=== PATIENT | male | born 1955 | race Caucasian/White ===

== ENCOUNTER 2023-07-30 10:32 | Emergency (ER) | payer MEDICARE ==
[2023-07-30 11:00] VITALS: TEMP 98.5
[2023-07-30] MEDS: MECLIZINE 12.5 MG TAB PO STA (11:23)
[2023-07-30] MEDS: SCOPOLAMINE 1 MG/72 HR PATCH TRANSDERM STA (11:23)
[2023-07-30] MEDS: SODIUM CHLORIDE 0.9% 1,000 ML IV STA (11:24)
--- NOTE | 2023-07-30 11:31 | ED ---
Dizziness HPI - General Chief Complaint: Dizziness Stated Complaint: Vertigo, cough Time Seen by Provider: 07/30/23 10:59 Source: patient, RN notes reviewed Mode of arrival: ambulatory Limitations: no limitations - History of Present Illness Initial Comments: This is a 68-year-old male who presents to the emergency department for dizziness and a cough. Patient states that for the last 2 weeks he has been dealing with a cough and feeling rundown. States that he feels like he had some sort of cold. He saw his primary care provider and was given a prescription for azithromycin which he has since finished. States that he is not sure why he was given this prescription. This morning, he noticed that when he would stand up or turn around he started to feel dizzy with a room spinning sensation. Denies any visual changes, chest pain, or shortness of breath. Symptoms are improved when sitting still. MD Complaint: dizziness - Related Data Previous Rx's Medication Instructions Recorded Benzonatate [Tessalon Perle] 200 mg PO TID PRN #30 capsule 07/30/23 Meclizine HCl 25 mg PO QID PRN #20 tab 07/30/23 Allergies Allergy/AdvReac Type Severity Reaction Status Date / Time No Known Allergies Allergy Verified 07/30/23 10:46 Review of Systems ROS Statement: Those systems with pertinent positive or pertinent negative responses have been documented in the HPI. ROS Other: All systems not noted in ROS Statement are negative. Past Medical History Past Medical History: No Reported History History of Any Multi-Drug Resistant Organisms: None Reported Past Surgical History: No Surgical Hx Reported Past Psychological History: No Psychological Hx Reported Smoking Status: Current every day smoker Past Alcohol Use History: Occasional Past Drug Use History: None Reported General Exam Limitations: no limitations General appearance: alert, in no apparent distress Head exam: Present: atraumatic, normocephalic, normal inspection Eye exam: Present: normal appearance, PERRL, EOMI. Absent: scleral icterus, conjunctival injection, periorbital swelling ENT exam: Present: TM's normal bilaterally, normal external ear exam Respiratory exam: Present: normal lung sounds bilaterally. Absent: respiratory distress, wheezes, rales, rhonchi, stridor Cardiovascular Exam: Present: regular rate, normal rhythm, normal heart sounds. Absent: systolic murmur, diastolic murmur, rubs, gallop, clicks Neurological exam: Present: alert, oriented X3, CN II-XII intact Psychiatric exam: Present: normal affect, normal mood Skin exam: Present: warm, dry, intact, normal color. Absent: rash Course Vital Signs 07/30/23 07/30/23 07/30/23 10:44 13:00 14:03 Temperature 98.5 F Pulse Rate 56 L 82 82 Respiratory 20 16 14 Rate Blood Pressure 134/82 141/98 134/92 O2 Sat by Pulse 99 97 98 Oximetry Medical Decision Making - Medical Decision Making This is a 68 year old male who presents to the emergency department for dizziness. Was pt. sent in by a medical professional or institution? @ -No Did you speak to anyone other than the patient for history? @ -No Did you review nursing and triage notes? @ -Yes, and I agree, it is accurate with regards to the patient's symptoms. Were old charts reviewed? @ -No Differential Diagnosis? @ -Differential Dizziness: Benign paroxysmal positional Vertigo, Menieres disease, otitis media, acoustic neuroma, vertebrobasilar insufficiency, cerebellar stroke, encephalitis, hypovolemic, arrhythmia, coronary artery syndrome, anemia, this is not meant to be an all-inclusive list EKG interpreted by me (3pts min.)? @ -EKG interpreted by me demonstrating the following: Sinus rhythm. Ventricular rate 77 bpm, HI interval 157 ms, QRS duration 106 ms, QTc 396 ms. X-rays interpreted by me (1pt min.)? @ -Chest x-ray obtained, my interpretation identifies no localized consolidations or infiltrates. CT interpreted by me (1pt min.)? @ -Not obtained U/S interpreted by me (1pt. min.)? @ -Not obtained What testing was considered but not performed? (CT, X-rays, U/S, labs)? Why? @ -None What meds were considered but not given? Why? @ -None Did you discuss the management of the patient with other professionals? @ -No Did you reconcile home meds? @ -No Was smoking cessation discussed for >3mins.? @ -No Was critical care preformed (if so, how long)? @ -No Were there social determinants of health that impacted care today? How? (Homelessness, low income, unemployed, alcoholism, drug addiction, transportation, low edu. Level, literacy, decrease access to med. care, longterm, rehab)? @ -No Was there de-escalation of care discussed even if they declined? (Discuss DNR or withdrawal of care, Hospice)? @ -No What co-morbidities impacted this encounter? (DM, HTN, Smoking, COPD, CAD, Cancer, CVA, Hep., AIDS, mental health diagnosis, sleep apnea, morbid obesity)? @ -None Was patient admitted / discharged? @ -Discharged. Lab work unremarkable. Patient positive for influenza A. Chest x-ray reveals no acute process. Patient treated with IV fluids, meclizine, and a scopolamine patch. He did have improvement in symptoms afterwards. He was standing up and ambulating around and the dizziness had improved substantially. Symptoms could be related to combination of volume depl etion and vertigo. Prescription for meclizine provided with dosing instructions reviewed. He was also given a prescription for Tessalon Perles for any additional coughing. Advised he drink plenty of fluids and move around slowly to the reduce the risk of future dizzy episodes. Patient discharged home in stable condition and advised to follow-up with his primary care provider. Undiagnosed new problem with uncertain prognosis? @ -None Drug Therapy requiring intensive monitoring for toxicity (Heparin, Nitro, Insulin, Cardizem)? @ -None Were any procedures done? @ -None Diagnosis/symptom? @ -BPPV, influenza A Acute, or Chronic, or Acute on Chronic? @ -Acute Uncomplicated (without systemic symptoms) or Complicated (systemic symptoms)? @ -Uncomplicated Side effects of treatment? @ -None Exacerbation, Progression, or Severe Exacerbation] @ -Not applicable Poses a threat to life or bodily function? @ -No Return precautions reviewed in depth, the patient is instructed to return to the emergency department with any new, worsening, or concerning symptoms. Patient verbalized understanding. This case was discussed in detail with the attending ED physician, Dr. Flynn. Presentation, findings, and treatment plan discussed in detail as well. - Lab Data Result diagrams: 07/30/23 11:24 07/30/23 11:24 Lab Results 07/30/23 07/30/23 07/30/23 Range/Units 11:24 11:24 11:24 WBC 8.0 (3.8-10.6) k/uL RBC 5.02 (4.30-5.90) m/uL Hgb 16.9 (13.0-17.5) gm/dL Hct 49.8 (39.0-53.0) % MCV 99.2 (80.0-100.0) fL MCH 33.6 (25.0-35.0) pg MCHC 33.9 (31.0-37.0) g/dL RDW 11.8 (11.5-15.5) % Plt Count 328 (150-450) k/uL MPV 9.1 Neutrophils % 72 % Lymphocytes % 15 % Monocytes % 8 % Eosinophils % 3 % Basophils % 1 % Neutrophils # 5.8 (1.3-7.7) k/uL Lymphocytes # 1.2 (1.0-4.8) k/uL Monocytes # 0.7 (0-1.0) k/uL Eosinophils # 0.3 (0-0.7) k/uL Basophils # 0.1 (0-0.2) k/uL PT 10.8 (10.0-12.5) sec INR 1.0 (<1.2) Sodium 134 L (137-145) mmol/L Potassium 4.5 (3.5-5.1) mmol/L Chloride 102 (98-107) mmol/L Carbon Dioxide 22 (22-30) mmol/L Anion Gap 10 mmol/L BUN 17 (9-20) mg/dL Creatinine 0.97 (0.66-1.25) mg/dL Est GFR (CKD-EPI)AfAm >90 (>60 ml/min/1.73 sqM) Est GFR (CKD-EPI)NonAf 79 (>60 ml/min/1.73 sqM) Glucose 95 (74-99) mg/dL Plasma Lactic Acid Jimbo (0.7-2.0) mmol/L Calcium 9.0 (8.4-10.2) mg/dL Magnesium 1.9 (1.6-2.3) mg/dL Total Bilirubin 1.2 (0.2-1.3) mg/dL AST 31 (17-59) U/L ALT 32 (4-49) U/L Alkaline Phosphatase 110 (38-126) U/L Troponin I (0.000-0.034) ng/mL Total Protein 7.3 (6.3-8.2) g/dL Albumin 3.5 (3.5-5.0) g/dL Influenza Type A (PCR) (Not Detectd) Influenza Type B (PCR) (Not Detectd) RSV (PCR) (Not Detectd) SARS-CoV-2 (PCR) (Not Detectd) 07/30/23 07/30/23 07/30/23 Range/Units 11:24 11:24 11:24 WBC (3.8-10.6) k/uL RBC (4.30-5.90) m/uL Hgb (13.0-17.5) gm/dL Hct (39.0-53.0) % MCV (80.0-100.0) fL MCH (25.0-35.0) pg MCHC (31.0-37.0) g/dL RDW (11.5-15.5) % Plt Count (150-450) k/uL MPV Neutrophils % % Lymphocytes % % Monocytes % % Eosinophils % % Basophils % % Neutrophils # (1.3-7.7) k/uL Lymphocytes # (1.0-4.8) k/uL Monocytes # (0-1.0) k/uL Eosinophils # (0-0.7) k/uL Basophils # (0-0.2) k/uL PT (10.0-12.5) sec INR (<1.2) Sodium (137-145) mmol/L Potassium (3.5-5.1) mmol/L Chloride (98-107) mmol/L Carbon Dioxide (22-30) mmol/L Anion Gap mmol/L BUN (9-20) mg/dL Creatinine (0.66-1.25) mg/dL Est GFR (CKD-EPI)AfAm (>60 ml/min/1.73 sqM) Est GFR (CKD-EPI)NonAf (>60 ml/min/1.73 sqM) Glucose (74-99) mg/dL Plasma Lactic Acid Jimbo 1.0 (0.7-2.0) mmol/L Calcium (8.4-10.2) mg/dL Magnesium (1.6-2.3) mg/dL Total Bilirubin (0.2-1.3) mg/dL AST (17-59) U/L ALT (4-49) U/L Alkaline Phosphatase (38-126) U/L Troponin I <0.012 (0.000-0.034) ng/mL Total Protein (6.3-8.2) g/dL Albumin (3.5-5.0) g/dL Influenza Type A (PCR) Detected A (Not Detectd) Influenza Type B (PCR) Not Detected (Not Detectd) RSV (PCR) Not Detected (Not Detectd) SARS-CoV-2 (PCR) Not Detected (Not Detectd) - Radiology Data Radiology results: report reviewed, image reviewed Disposition Clinical Impression: BPPV (benign paroxysmal positional vertigo), Influenza A Disposition: HOME SELF-CARE Instructions (If sedation given, give patient instructions): Vertigo (ED), Influenza (ED), Benign Paroxysmal Positional Vertigo (ED), Dizziness (ED) Additional Instructions: Return to the emergency department with any new, worsening, or concerning symptoms. You can take the meclizine up to 4 times daily as needed for feelings of dizziness/vertigo. You can take the Tessalon Perles up to 3 times a day as needed for the cough. Make sure you drink plenty of fluids. Move around slowly to reduce the risk of dizziness. Follow up with your primary care provider in 1-2 days. Prescriptions: Meclizine HCl 25 mg PO QID PRN #20 tab PRN Reason: Vertigo Benzonatate [Tessalon Perle] 200 mg PO TID PRN #30 capsule PRN Reason: Cough Is patient prescribed a controlled substance at d/c from ED?: No Referrals: Katlyn Solis MD [Primary Care Provider] - 1-2 days
[2023-07-30 11:51] LABS: ALT 32 U/L (4-49); AST 31 U/L (17-59); African American GFR (CKD) >90 (>60 ml/min/1.73 sqM); Albumin 3.5 g/dL (3.5-5.0); Alkaline Phosphatase 110 U/L (38-126); Anion Gap 10 mmol/L; Blood Urea Nitrogen 17 mg/dL (9-20); Carbon Dioxide 22 mmol/L (22-30); Chloride 102 mmol/L (98-107); Glucose 95 mg/dL (74-99); Magnesium 1.9 mg/dL (1.6-2.3); Non-African American GFR(CKD) 79 (>60 ml/min/1.73 sqM); Potassium 4.5 mmol/L (3.5-5.1); Sodium 134 mmol/L (137-145); Total Bilirubin 1.2 mg/dL (0.2-1.3); Total Protein 7.3 g/dL (6.3-8.2)
[2023-07-30 11:57] LABS: Prothrombin Time 10.8 sec (10.0-12.5)
[2023-07-30 12:00] LABS: Basophils # (A) 0.1 k/uL (0-0.2); Basophils % (A) 1 %; Eosinophils # (A) 0.3 k/uL (0-0.7); Eosinophils % (A) 3 %; HCT 49.8 % (39.0-53.0); HGB 16.9 gm/dL (13.0-17.5); Lymphocytes # (A) 1.2 k/uL (1.0-4.8); Lymphocytes % (A) 15 %; MCH 33.6 pg (25.0-35.0); MCHC 33.9 g/dL (31.0-37.0); MCV 99.2 fL (80.0-100.0); Mean Platelet Volume 9.1; Monocytes # (A) 0.7 k/uL (0-1.0); Monocytes % (A) 8 %; Neutrophils # (A) 5.8 k/uL (1.3-7.7); Neutrophils % (A) 72 %; Platelet Count 328 k/uL (150-450); RBC 5.02 m/uL (4.30-5.90); RDW 11.8 % (11.5-15.5)
--- NOTE | 2023-07-30 12:36 | XR ---
EXAMINATION TYPE: XR chest 2V DATE OF EXAM: 07/30/2023 11:57 AM CLINICAL INDICATION:Male, 68 years old with history of Cough, dizziness; COMPARISON: None TECHNIQUE: XR chest 2V Frontal and lateral views of the chest. FINDINGS: Lungs/Pleura: There is no evidence of pleural effusion, focal consolidation, or pneumothorax. Pulmonary vascularity: Unremarkable. Heart/mediastinum: Cardiomediastinal silhouette is unremarkable. Musculoskeletal: No acute osseous pathology. IMPRESSION: 1. No acute cardiopulmonary disease process. 2. COPD changes.
[2023-07-30] MEDS: METOCLOPRAMIDE 5 MG/ML 2 ML VIAL IVP STA (13:17)
[2023-07-30 14:22] VITALS: BP 134/92; PULSE 82; RESP 14
== END 2023-07-30 14:04 | disposition home or self-care (01) ==
LOC: EC 10:32
DX: H81.10 Benign paroxysmal vertigo, unspecified ear (principal); J10.1 Influenza due to other identified influenza virus with other respiratory manifestations; F17.200 Nicotine dependence, unspecified, uncomplicated
CPT/HCPCS: 36415; 93005; 80053; 83605; 83735; 84484; 85025; 85610; 87636; 71046; 99284; 96374; 96361; J2765

== ENCOUNTER 2023-09-15 13:49 | Inpatient (IN) | payer MEDICARE ==
--- NOTE | 2023-09-15 14:09 | ED ---
General Adult HPI - General Chief complaint: Neuro Symptoms/Deficit Stated complaint: AMS Time Seen by Provider: 09/15/23 13:55 Source: patient, EMS, RN notes reviewed, old records reviewed Limitations: no limitations - History of Present Illness Initial comments: This is a 68-year-old male who was brought in for altered mental status. Neighbor states that he found him driving around and not acting at his baseline so he called the ambulance. Patient himself denies any pain. Patient is having a very difficult time following the most basic commands. Patient does seem able to move all 4 extremities however the left upper extremity appears to be slightly weak. Patient does not currently know where he is he listed and addressed it is not the address of the hospital. - Related Data Home Medications Medication Instructions Recorded Confirmed No Known Home Medications 09/15/23 09/15/23 Allergies Allergy/AdvReac Type Severity Reaction Status Date / Time No Known Allergies Allergy Verified 09/15/23 14:58 Review of Systems ROS Statement: Those systems with pertinent positive or pertinent negative responses have been documented in the HPI. ROS Other: All systems not noted in ROS Statement are negative. Past Medical History Past Medical History: No Reported History History of Any Multi-Drug Resistant Organisms: None Reported Past Surgical History: No Surgical Hx Reported Past Psychological History: No Psychological Hx Reported Smoking Status: Current every day smoker Past Alcohol Use History: Occasional Past Drug Use History: None Reported General Exam - General Exam Comments Initial Comments: GENERAL: Patient is well-developed and well-nourished. Patient is nontoxic and well- hydrated and is in no acute distress. ENT: Neck is soft and supple. No significant lymphadenopathy is noted. Oropharynx is clear. Moist mucous membranes. Neck has full range of motion without eliciting any pain. EYES: The sclera were anicteric and conjunctiva were pink and moist. Extraocular movements were intact and pupils were equal round and reactive to light. Eyel ids were unremarkable. PULMONARY: Unlabored respirations. Good breath sounds bilaterally. No audible rales rhonchi or wheezing was noted. CARDIOVASCULAR: There is a regular rate and rhythm without any murmurs gallops or rubs. ABDOMEN: Soft and nontender with normal bowel sounds. SKIN: Skin is clear with no lesions or rashes and otherwise unremarkable. NEUROLOGIC: Patient is alert and oriented x 1. Cranial nerves II through XII are grossly intact. Patient may have some left arm weakness difficult to assess secondary to the patient's inability to understand basic commands. Cannot do pronator drift I could not to cerebellar function testing because patient was not following commands MUSCULOSKELETAL: Normal extremities with adequate strength and full range of motion. No lower e xtremity swelling or edema. No calf tenderness. LYMPHATICS: No significant lymphadenopathy is noted PSYCHIATRIC: Unable to assess since patient is not actively answering questions Limitations: no limitations Course Vital Signs 09/15/23 09/15/23 09/15/23 13:50 15:36 16:00 Pulse Rate 90 105 H 103 H Respiratory 18 16 17 Rate Blood Pressure 205/125 181/106 181/106 O2 Sat by Pulse 94 L 100 98 Oximetry 09/15/23 09/15/23 09/15/23 16:40 17:00 20:33 Pulse Rate 120 H 121 H 96 Respiratory 18 20 17 Rate Blood Pressure 142/98 142/98 151/63 O2 Sat by Pulse 94 L 97 Oximetry Medical Decision Making - Medical Decision Making EKG is interpreted by myself but EKG shows a sinus rhythm at 74 bpm [place] interval 153 QRS is 107 QT interval is 382 QTc is 410. Patient's EKG shows no ST segment elevation or depression. EKG was repeated after the patient had a 30 to 40-second seizure. EKG was interpreted by myself. EKG shows sinus tachycardia at a rate of 103 bpm [place] interval 198 QRS is 109 QT interval is 57 QTc is 417. Patient's EKG shows no ST segment elevation or depression Was pt. sent in by a medical professional or institution (ASHLEY Patrick, PUBLIC HE[employer]IDES TEACHER, urgent care, hospital, or assisted...) When possible be specific @ -Patient was sent in by a neighbor because of his altered mental status he was found in the [place] in his [place] Did you speak to anyone other than the patient for history (EMS, parent, family, police, friend...)? What history was obtained from this source @ -Patient's girlfriend came and gives all of the past medical history since the patient was unable Did you review nursing and triage notes (agree or disagree)? Why? @ -I reviewed and agree with nursing and triage notes Were old charts reviewed (outside hosp., previous admission, EMS record, old EKG, old radiological studies, urgent care reports/EKG's, assisted records)? Report findings @ -No old charts were reviewed Differential Diagnosis (chest pain, altered mental status, abdominal pain women, abdominal pain men, vaginal bleeding, weakness, fever, dyspnea, syncope, headache, dizziness, GI bleed, back pain, seizure, CVA, palpatations, mental health, musculoskeletal)? @ -Differential Altered Mental Status: Hypoglycemia, DKA, hypercapnia, ETOH, overdose, CO poisoning, trauma, myxedema coma, HTN encephalopathy, infection, encephalitis, psychosis, intercranial hemorrhage, hepatic encephalopathy, meningitis, CVA, this is not meant to be an all-inclusive list EKG interpreted by me (3pts min.). @ -As above X-rays interpreted by me (1pt min.). @ -None done CT interpreted by me (1pt min.). @ -CT of the brain showed no acute abnormality. CT angiogram showed no acute normality. U/S interpreted by me (1pt. min.). @ -None done What testing was considered but not performed or refused? (CT, X-rays, U/S, labs)? Why? @ -None What meds were considered but not given or refused? Why? @ -None Did you discuss the management of the patient with other professionals (professionals i.e. DrLandy, PA, PUBLIC HEALTH AIDES TEACHER, lab, RT, psych nurse, clinical social work therapist, plum packer, teacher, credit officer, ed case manager)? Give summary @ -I spoke with Dr. Abhinav duggan and he wanted the patient to have 1 mg of Ativan as well as Keppra. He will see the patient in consult tomorrow Was smoking cessation discussed for >3mins.? @ -No Was critical care preformed (if so, how long)? @ -No Were there social determinants of health that impacted care today? How? (Homelessness, low income, unemployed, alcoholism, drug addiction, transportation, low edu. Level, literacy, decrease access to med. care, correction, rehab)? @ -No Was there de-escalation of care discussed even if they declined (Discuss DNR or withdrawal of care, Hospice)? DNR status @ -No What co-morbidities impacted this encounter? (DM, HTN, Smoking, COPD, CAD, Cancer, CVA, ARF, Chemo, Hep., AIDS, mental health diagnosis, sleep apnea, morbid obesity)? @ -None Was patient admitted / discharged? Hospital course, mention meds given and route, prescriptions, significant lab abnormalities, going to OR and other pertinent info. @ -Patient was altered on arrival but he was awake and alert and answering some questions and following some commands. Patient shortly thereafter had a seizure lasting about 30 to 40 seconds and he was given 1 of Ativan at that time. Patient continued to be agitated and needed to have a second Ativan given. Patient also was loaded with Keppra. Lab work was done and was within normal ra nge as were 2 CAT scans. Undiagnosed new problem with uncertain prognosis? @ -No Drug Therapy requiring intensive monitoring for toxicity (Heparin, Nitro, Insulin, Cardizem)? @ -No Were any procedures done? @ -No Diagnosis/symptom? @ -New onset seizure Acute, or Chronic, or Acute on Chronic? @ -Acute Uncomplicated (without systemic symptoms) or Complicated (systemic symptoms)? @ -Complicated Side effects of treatment? @ -No Exacerbation, Progression, or Severe Exacerbation? @ -No Poses a threat to life or bodily function? How? (Chest pain, [place], [place], pneumonia, PE, COPD, DKA, ARF, appy, cholecystitis, CVA, Diverticulitis, Homicidal, Suicidal, threat to staff... and all critical care pts) @ -Yes this can lead to prolonged seizures and - Lab Data Result diagrams: 09/15/23 13:59 09/15/23 16:11 Lab Results 09/15/23 09/15/23 09/15/23 Range/Units 13:59 13:59 13:59 WBC 7.1 (3.8-10.6) k/uL RBC 4.51 (4.30-5.90) m/uL Hgb 14.5 (13.0-17.5) gm/dL Hct 45.1 (39.0-53.0) % MCV 100.1 H (80.0-100.0) fL MCH 32.2 (25.0-35.0) pg MCHC 32.1 (31.0-37.0) g/dL RDW 13.2 (11.5-15.5) % Plt Count 171 (150-450) k/uL MPV 9.1 Neutrophils % 70 % Lymphocytes % 19 % Monocytes % 5 % Eosinophils % 4 % Basophils % 1 % Neutrophils # 5.0 (1.3-7.7) k/uL Lymphocytes # 1.4 (1.0-4.8) k/uL Monocytes # 0.4 (0-1.0) k/uL Eosinophils # 0.3 (0-0.7) k/uL Basophils # 0.0 (0-0.2) k/uL PT 10.5 (10.0-12.5) sec INR 0.9 (<1.2) APTT 24.5 (22.0-30.0) sec Sodium 136 L (137-145) mmol/L Potassium 3.7 (3.5-5.1) mmol/L Chloride 106 (98-107) mmol/L Carbon Dioxide 23 (22-30) mmol/L Anion Gap 7 mmol/L BUN 21 H (9-20) mg/dL Creatinine 1.13 (0.66-1.25) mg/dL Est GFR (CKD-EPI)AfAm 76 (>60 ml/min/1.73 sqM) Est GFR (CKD-EPI)NonAf 66 (>60 ml/min/1.73 sqM) Glucose 86 (74-99) mg/dL Calcium 9.0 (8.4-10.2) mg/dL Magnesium (1.6-2.3) mg/dL Total Bilirubin 0.8 (0.2-1.3) mg/dL AST 43 (17-59) U/L ALT 27 (4-49) U/L Alkaline Phosphatase 86 (38-126) U/L Ammonia (<30) umol/L Creatine Kinase 174 H (55-170) U/L Troponin I (0.000-0.034) ng/mL Total Protein 7.6 (6.3-8.2) g/dL Albumin 4.1 (3.5-5.0) g/dL Urine Opiates Screen (NotDetected) Ur Oxycodone Screen (NotDetected) Urine Methadone Screen (NotDetected) Ur Barbiturates Screen (NotDetected) U Tricyclic Antidepress (NotDetected) Ur Phencyclidine Scrn (NotDetected) Ur Amphetamines Screen (NotDetected) U Methamphetamines Scrn (NotDetected) U Benzodiazepines Scrn (NotDetected) Urine Cocaine Screen (NotDetected) U Marijuana (THC) Screen (NotDetected) Serum Alcohol mg/dL 09/15/23 09/15/23 09/15/23 Range/Units 13:59 16:11 16:11 WBC (3.8-10.6) k/uL RBC (4.30-5.90) m/uL Hgb (13.0-17.5) gm/dL Hct (39.0-53.0) % MCV (80.0-100.0) fL MCH (25.0-35.0) pg MCHC (31.0-37.0) g/dL RDW (11.5-15.5) % Plt Count (150-450) k/uL MPV Neutrophils % % Lymphocytes % % Monocytes % % Eosinophils % % Basophils % % Neutrophils # (1.3-7.7) k/uL Lymphocytes # (1.0-4.8) k/uL Monocytes # (0-1.0) k/uL Eosinophils # (0-0.7) k/uL Basophils # (0-0.2) k/uL PT (10.0-12.5) sec INR (<1.2) APTT (22.0-30.0) sec Sodium 137 (137-145) mmol/L Potassium 4.2 (3.5-5.1) mmol/L Chloride 106 (98-107) mmol/L Carbon Dioxide 21 L (22-30) mmol/L Anion Gap 10 mmol/L BUN 18 (9-20) mg/dL Creatinine 1.14 (0.66-1.25) mg/dL Est GFR (CKD-EPI)AfAm 75 (>60 ml/min/1.73 sqM) Est GFR (CKD-EPI)NonAf 65 (>60 ml/min/1.73 sqM) Glucose 118 H (74-99) mg/dL Calcium 8.8 (8.4-10.2) mg/dL Magnesium 1.8 (1.6-2.3) mg/dL Total Bilirubin 0.8 (0.2-1.3) mg/dL AST 48 (17-59) U/L ALT 26 (4-49) U/L Alkaline Phosphatase 84 (38-126) U/L Ammonia 28 (<30) umol/L Creatine Kinase (55-170) U/L Troponin I 0.015 (0.000-0.034) ng/mL Total Protein 7.8 (6.3-8.2) g/dL Albumin 4.2 (3.5-5.0) g/dL Urine Opiates Screen (NotDetected) Ur Oxycodone Screen (NotDetected) Urine Methadone Screen (NotDetected) Ur Barbiturates Screen (NotDetected) U Tricyclic Antidepress (NotDetected) Ur Phencyclidine Scrn (NotDetected) Ur Amphetamines Screen (NotDetected) U Methamphetamines Scrn (NotDetected) U Benzodiazepines Scrn (NotDetected) Urine Cocaine Screen (NotDetected) U Marijuana (THC) Screen (NotDetected) Serum Alcohol <10 mg/dL 09/15/23 09/15/23 Range/Units 16:11 16:11 WBC (3.8-10.6) k/uL RBC (4.30-5.90) m/uL Hgb (13.0-17.5) gm/dL Hct (39.0-53.0) % MCV (80.0-100.0) fL MCH (25.0-35.0) pg MCHC (31.0-37.0) g/dL RDW (11.5-15.5) % Plt Count (150-450) k/uL MPV Neutrophils % % Lymphocytes % % Monocytes % % Eosinophils % % Basophils % % Neutrophils # (1.3-7.7) k/uL Lymphocytes # (1.0-4.8) k/uL Monocytes # (0-1.0) k/uL Eosinophils # (0-0.7) k/uL Basophils # (0-0.2) k/uL PT (10.0-12.5) sec INR (<1.2) APTT (22.0-30.0) sec Sodium (137-145) mmol/L Potassium (3.5-5.1) mmol/L Chloride (98-107) mmol/L Carbon Dioxide (22-30) mmol/L Anion Gap mmol/L BUN (9-20) mg/dL Creatinine (0.66-1.25) mg/dL Est GFR (CKD-EPI)AfAm (>60 ml/min/1.73 sqM) Est GFR (CKD-EPI)NonAf (>60 ml/min/1.73 sqM) Glucose (74-99) mg/dL Calcium (8.4-10.2) mg/dL Magnesium (1.6-2.3) mg/dL Total Bilirubin (0.2-1.3) mg/dL AST (17-59) U/L ALT (4-49) U/L Alkaline Phosphatase (38-126) U/L Ammonia (<30) umol/L Creatine Kinase (55-170) U/L Troponin I 0.027 (0.000-0.034) ng/mL Total Protein (6.3-8.2) g/dL Albumin (3.5-5.0) g/dL Urine Opiates Screen Not Detected (NotDetected) Ur Oxycodone Screen Not Detected (NotDetected) Urine Methadone Screen Not Detected (NotDetected) Ur Barbiturates Screen Not Detected (NotDetected) U Tricyclic Antidepress Not Detected (NotDetected) Ur Phencyclidine Scrn Not Detected (NotDetected) Ur Amphetamines Screen Not Detected (NotDetected) U Methamphetamines Scrn Not Detected (NotDetected) U Benzodiazepines Scrn Not Detected (NotDetected) Urine Cocaine Screen Not Detected (NotDetected) U Marijuana (THC) Screen Not Detected (NotDetected) Serum Alcohol mg/dL Disposition Clinical Impression: New onset seizure Disposition: ADMITTED IP TO THIS [facility] Time of Disposition: 17:32
[2023-09-15 14:16] LABS: Basophils % (A) 1 %; Eosinophils # (A) 0.3 k/uL (0-0.7); Eosinophils % (A) 4 %; HCT 45.1 % (39.0-53.0); HGB 14.5 gm/dL (13.0-17.5); Lymphocytes # (A) 1.4 k/uL (1.0-4.8); Lymphocytes % (A) 19 %; MCH 32.2 pg (25.0-35.0); MCHC 32.1 g/dL (31.0-37.0); MCV 100.1 fL (80.0-100.0); Mean Platelet Volume 9.1; Monocytes # (A) 0.4 k/uL (0-1.0); Monocytes % (A) 5 %; Neutrophils % (A) 70 %; Platelet Count 171 k/uL (150-450); RBC 4.51 m/uL (4.30-5.90); RDW 13.2 % (11.5-15.5); WBC 7.1 k/uL (3.8-10.6)
--- NOTE | 2023-09-15 14:17 | CT ---
EXAMINATION TYPE: CT brain wo con CT DLP: 1246.6 mGycm, Automated exposure control for dose reduction was used. DATE OF EXAM: 09/15/2023 2:12 PM COMPARISON: None. CLINICAL INDICATION:Male, 68 years old with history of Neuro deficit, acute, stroke suspected, TECHNIQUE: Brain: Axial CT images of the brain were obtained with coronal and sagittal reformats created and rev iewed. Contrast used: None. Oral contrast used: None. FINDINGS: Brain: Extra-axial spaces: No abnormal extra-axial fluid collections. Ventricular system: Dilatation in proportion to cerebral atrophy. Cerebral parenchyma: Cerebral atrophy. No acute intraparenchymal hemorrhage or mass effect. The polk -white junction is well differentiated. Scattered hypoattenuating areas are seen within the white mat ter. Cerebellum: Unremarkable. Mass effect: No evidence of midline shift. Intracranial vasculature: Atherosclerotic calcifications of the intracranial vessels. Soft tissues: Normal. Calvarium/osseous structures: No depressed skull fracture. Paranasal sinuses and mastoid air cells: Mild scattered paranasal sinus disease. Visualized orbits: Bilateral aphakia IMPRESSION: 1. No acute intracranial process. 2. Nonspecific white matter changes, likely secondary to chronic small vessel ischemic disease.
[2023-09-15 14:30] LABS: INR 0.9 (<1.2); Partial Thromboplastin Time 24.5 sec (22.0-30.0); Prothrombin Time 10.5 sec (10.0-12.5)
[2023-09-15 14:34] LABS: ALT 27 U/L (4-49); AST 43 U/L (17-59); African American GFR (CKD) 76 (>60 ml/min/1.73 sqM); Albumin 4.1 g/dL (3.5-5.0); Alkaline Phosphatase 86 U/L (38-126); Anion Gap 7 mmol/L; Blood Urea Nitrogen 21 mg/dL (9-20); Carbon Dioxide 23 mmol/L (22-30); Chloride 106 mmol/L (98-107); Creatine Kinase 174 U/L (55-170); Glucose 86 mg/dL (74-99); Non-African American GFR(CKD) 66 (>60 ml/min/1.73 sqM); Potassium 3.7 mmol/L (3.5-5.1); Sodium 136 mmol/L (137-145); Total Bilirubin 0.8 mg/dL (0.2-1.3); Total Protein 7.6 g/dL (6.3-8.2)
[2023-09-15] MEDS: LORazepam 2 MG/ML INJ IV STA ×3 (15:09→18:26)
[2023-09-15] MEDS: SODIUM CHLORIDE 0.9% 1,000 ML IV STA (15:10)
--- NOTE | 2023-09-15 15:17 | CT ---
EXAMINATION TYPE: CT angio head neck CT DLP: 479.2 mGycm, Automated exposure control for dose reduction was used. DATE OF EXAM: 09/15/2023 2:33 PM COMPARISON: Same day CT head. CLINICAL INDICATION:Male, 68 years old with history of Neuro deficit, acute, stroke suspected; PHH, a ltered mental status TECHNIQUE: Axially acquired helical CT angiogram of the head and neck was obtained with contrast. Axi al images are supplemented with 3D reconstructions and MIP images which were post-processed at an in dependent workstation. NASCET criteria used. Contrast used:65 mL of Isovue 370 with IV Contrast, Oral contrast used: None. FINDINGS: CTA HEAD: No evidence of acute intracranial hemorrhage, mass effect, or midline shift. The ventricles, sulci, a nd cisterns are unremarkable. The visualized portions of the internal carotid arteries, middle cerebral arteries, anterior cerebral arteries, and posterior cerebral arteries are patent. The basilar and vertebral arteries are patent. CTA NECK: Right Carotid System: The common carotid artery and external carotid artery are patent. The carotid bifurcation demonstrate s no evidence of hemodynamically significant stenosis. The remaining portions of the internal carotid artery demonstrate normal size without significant narrowing. Left Carotid System: The common carotid artery and external carotid artery are patent. The carotid bifurcation demonstrate s no evidence of hemodynamically significant stenosis. The remaining portions of the internal carotid artery demonstrate normal size without significant narrowing. Vertebral arteries are patent without evidence hemodynamically significant stenosis. There is a three-vessel aortic arch. The origins of the great vessels are patent. No evidence of hemo dynamically significant stenosis. Upper thorax: Centrilobular emphysema changes in the lung apices. IMPRESSION: 1. No evidence of dissection of the cervical internal carotid arteries or vertebral arteries or any e vidence of significant stenosis at the carotid bifurcations. 2. No evidence of intracranial high-grade stenosis or intracranial aneurysm.
[2023-09-15 16:31] LABS: ALT 26 U/L (4-49); African American GFR (CKD) 75 (>60 ml/min/1.73 sqM); Albumin 4.2 g/dL (3.5-5.0); Alcohol <10 mg/dL; Anion Gap 10 mmol/L; Blood Urea Nitrogen 18 mg/dL (9-20); Calcium 8.8 mg/dL (8.4-10.2); Carbon Dioxide 21 mmol/L (22-30); Chloride 106 mmol/L (98-107); Glucose 118 mg/dL (74-99); Non-African American GFR(CKD) 65 (>60 ml/min/1.73 sqM); Sodium 137 mmol/L (137-145); Total Bilirubin 0.8 mg/dL (0.2-1.3); Total Protein 7.8 g/dL (6.3-8.2)
[2023-09-15] MEDS: levETIRAcetam IV 500 MG/5 ML VIAL IVP STA (16:32)
[2023-09-15 16:50] LABS: AST 48 U/L (17-59); Alkaline Phosphatase 84 U/L (38-126); Magnesium 1.8 mg/dL (1.6-2.3); Potassium 4.2 mmol/L (3.5-5.1)
[2023-09-15 16:53] LABS: Amphetamine Screen,Urine Not Detected (NotDetected); Barbiturate Screen,Urine Not Detected (NotDetected); Benzodiazepines Screen,Urine Not Detected (NotDetected); Cocaine Screen,Urine Not Detected (NotDetected); Methadone Screen, Urine Not Detected (NotDetected); Opiate Screen,Urine Not Detected (NotDetected); Oxycodone Screen, Urine Not Detected (NotDetected); Phencyclidine Screen,Urine Not Detected (NotDetected); Tricyclic Antidepressant,Urine Not Detected (NotDetected); Urn Cannabinoid Scrn Not Detected (NotDetected)
[2023-09-15] MEDS ORDERED: LORazepam 1 MG/0.5 ML VIAL IV STA (18:20)
[2023-09-15] MEDS: ZIPRASIDONE 20 MG VIAL IM STA (18:42)
[2023-09-15] MEDS: ASPIRIN 325 MG TAB PO STA (18:46)
--- NOTE | 2023-09-15 20:25 | XR ---
EXAMINATION TYPE: XR chest 1V DATE OF EXAM: 09/15/2023 8:01 PM CLINICAL INDICATION:Male, 68 years old with history of altered mental status; COMPARISON: Chest radiographs from 07/30/2023 TECHNIQUE: XR chest 1V Frontal view of the chest. FINDINGS: Lungs/Pleura: Prominent interstitial lung markings are seen scattered throughout the lungs with ariadna ening of the diaphragm and increased lucency of the lung apices. No evidence of focal consolidation, pneumothorax or pleural effusion. Pulmonary vascularity: Unremarkable. Heart/mediastinum: Cardiomediastinal silhouette is unremarkable. Musculoskeletal: No acute osseous pathology. IMPRESSION: 1. No acute cardiopulmonary disease process. 2. COPD changes.
[2023-09-15 22:49] LABS: Glucose,Whole Blood 117 mg/dL (70-110)
[2023-09-15] MEDS: THIAMINE 100 MG/ML 2 ML VIAL IM STA (23:09)
[2023-09-15] MEDS: levETIRAcetam 500 MG TAB PO SCH (23:10)
[2023-09-16] MEDS: LORazepam 2 MG/ML INJ IV STA ×2 (00:09→11:00)
[2023-09-16 02:37] LABS: Partial Thromboplastin Time 23.6 sec (22.0-30.0); Prothrombin Time 10.6 sec (10.0-12.5)
[2023-09-16] MEDS: ASPIRIN 325 MG TAB PO SCH (08:25)
[2023-09-16] MEDS: THIAMINE 100 MG TAB PO SCH (08:26)
[2023-09-16 08:56] LABS: Chol/HDL Ratio 3.89 Ratio; LDL Cholesterol,Calculated 141.3 mg/dL (0.0-131.0); VLDL Calculation 13.96 mg/dL (5.00-40.00)
--- NOTE | 2023-09-16 11:13 | P.HPIM ---
History of Present Illness H&P Date: 09/15/23 This is a 68-year-old male patient of Dr. Solis who presented to the ERWith concerns of altered mental status changes. According to at bedside Patient was found driving around confused EMS was called and upon exam patient was having difficulty following basic commands but was able to move all 4 extremities.According to upon arrival to ER patient did have witnessed seizure. Patient does not have a history of seizure and no other significant medical history except nicotine dependence. Patient does drink a couple beers a night according to patient has not drink a lot over the past month. Patient was treated for vertigo approximately 1 month ago But no other significant history noted. No recent change to diet or medication. Head CT was completed showing no acute intracranial process. Nonspecific white matter changes likely secondary to chronic small vessel ischemic disease.CT angiogram completed showing no evidence of dissection of the cervical internal carotid arteries or vertebral arteries are any evidence of significant stenosis of the carotid bifurcations. No evidence of intracranial high-grade stenosis or intracranial aneurysm.Chest x-ray completed showing no acute cardiopulmonary disease no changes.At this time patient remains confused does not follow com mands. Patient was started on Keppra per ER. At this time neurology service is consulted. MRI of the brain and EEG has been ordered. 2-D echocardiogram ordered. Repeat labs ordered. PT OT and speech service is consulted. Current vital signs temp 98.3, heart rate 83, respiratory rate 18, blood pressure 148/92 with pulse ox 97%. Review of Systems Please refer to HPI otherwise unremarkable. Past Medical History Past Medical History: No Reported History History of Any Multi-Drug Resistant Organisms: None Reported Past Surgical History: No Surgical Hx Reported Past Psychological History: No Psychological Hx Reported Smoking Status: Current every day smoker Past Alcohol Use History: Occasional Past Drug Use History: None Reported Medications and Allergies Home Medications Medication Instructions Recorded Confirmed Type No Known Home Medications 09/15/23 09/15/23 History Allergies Allergy/AdvReac Type Severity Reaction Status Date / Time No Known Allergies Allergy Verified 09/15/23 14:58 Physical Exam Vitals: Vital Signs Pulse Resp BP Pulse Ox 09/15/23 16:40 120 H 18 142/98 94 L 09/15/23 13:50 90 18 205/125 94 L Intake and Output 09/15/23 09/15/23 09/15/23 06:59 14:59 22:59 Other: Weight 86.183 kg Head normocephalic Neck supple Lungs clear to auscultation bilaterally no wheezing or crackles Heart regular rate and rhythm S1-S2, no rub or gallop Abdomen is soft nontender nondistended positive bowel sounds no hepatosplenomegaly Extremities no edema Neuro alert and orientated to 0.. Patient is confused and not following commands Results CBC & Chem 7: 09/15/23 13:59 09/15/23 16:11 Labs: Abnormal Lab Results - Last 24 Hours (Table) 09/15/23 09/15/23 09/15/23 Range/Units 13:59 13:59 16:11 MCV 100.1 H (80.0-100.0) fL Sodium 136 L (137-145) mmol/L Carbon Dioxide 21 L (22-30) mmol/L BUN 21 H (9-20) mg/dL Glucose 118 H (74-99) mg/dL Creatine Kinase 174 H (55-170) U/L Assessment and Plan Assessment: 1. Altered mental status changes possibly secondary to stroke and/or seizure 2. Witnessed seizure in ER patient was started on Keppra 3. Episode of vertigo approximately 1 month ago 4. Nicotine dependence At this time patient will be admitted Neurology services consulted MRI EEG and 2-D echo has been ordered Continue seizure precautions Repeat labs ordered PT OT and speech service is consulted Time with Patient: Greater than 30 (Greater than 60% of the total time spent in counseling and coordination of care)
[2023-09-16 12:39] LABS: Basophils # (A) 0.1 k/uL (0-0.2); Basophils % (A) 0 %; Eosinophils # (A) 0.1 k/uL (0-0.7); Eosinophils % (A) 1 %; HCT 43.5 % (39.0-53.0); HGB 13.9 gm/dL (13.0-17.5); Lymphocytes # (A) 1.5 k/uL (1.0-4.8); Lymphocytes % (A) 12 %; MCH 32.4 pg (25.0-35.0); MCHC 32.1 g/dL (31.0-37.0); MCV 101.1 fL (80.0-100.0); Macrocytosis Slight; Mean Platelet Volume 11.6; Monocytes # (A) 0.7 k/uL (0-1.0); Monocytes % (A) 6 %; Neutrophils # (A) 10.1 k/uL (1.3-7.7); Neutrophils % (A) 80 %; Platelet Count 170 k/uL (150-450); RDW 13.6 % (11.5-15.5); WBC 12.7 k/uL (3.8-10.6)
--- NOTE | 2023-09-16 15:24 | P.CNNES ---
History of Present Illness Consult date: 09/16/23 Requesting physician: Arnol Bass Reason for Consult: stroke/tia History of Present Illness: This is a 68-year-old gentleman who presents to the emergency department because of altered mental status. Patient's girlfriend is at bedside who provides the history. The girlfriend seems to the patient yesterday was confused and he went into neighbors garden he thinks this happened late morning early afternoon yesterday. He was babbling yesterday and it seems that he is neglecting the left arm and not moving it appropriately. She stated that he smokes heavily daily and it seems that he does not follow-up with primary care. She denies that the patient has any history of stroke or seizures to her knowledge but a gain he does not follow-up. Presented the emergency department via ambulance. And per the ED it seems that his left upper extremity was slightly weak. While in the ED it seems that the patient had seizures yesterday and the ED physician notified me about this yesterday it seems he was awake alert answering some questions and following some commands shortly thereafter he had a seizure lasting 30 to 40 seconds and was given 1 mg Ativan and he continued to be agitated so he needed a second Ativan per the ED team. I spoke with the ED physician and notified him to give him a loading dose of Keppra 1500 mg once then start him on Keppra 500 mg 500 twice a day. He continues to be confused. Per the girlfriend no recent fevers that she knows of. Some of the workup during this hospital visit consisted of: Presentation patient blood pressure is 205/125 which is improving. White blood cell on presentation 7.1. MCV is 100.1 Sodium most recent is 137, glucose is 118, calcium is 8.8, magnesium is 1.8, AST ALT is within normal limits Ammonia level is 28 Lipid panel is triglyceride of 69, cholesterol 209, LDL is 141 and HDL 53. Urine tox screen is nondetected in the serum alcohol is less than 10 CT head is reported as no acute intracranial process. Nonspecific white matter changes. Personally reviewed the CT of the head and agree with the report. CTA head and neck is reported as no evidence of dissection or cervical internal carotid artery or vertebral artery or any evidence of significant stenosis at the carotid bifurcation. No evidence of intracranial high-grade stenosis or intracranial aneurysm. Review of Systems Limited but the positive and negative as per HPI. Past Medical History Past Medical History: No Reported History History of Any Multi-Drug Resistant Organisms: None Reported Past Surgical History: No Surgical Hx Reported Past Psychological History: No Psychological Hx Reported Smoking Status: Current every day smoker Past Alcohol Use History: Occasional Past Drug Use History: None Reported Medications and Allergies Home Medications Medication Instructions Recorded Confirmed Type No Known Home Medications 09/15/23 09/15/23 History Allergies Allergy/AdvReac Type Severity Reaction Status Date / Time No Known Allergies Allergy Verified 09/15/23 14:58 Physical Examination - Vital Signs Vital Signs: Vital Signs Pulse Resp BP Pulse Ox 09/16/23 04:00 83 18 148/92 97 09/15/23 23:12 98 18 149/92 99 09/15/23 22:38 96 19 173/99 97 09/15/23 20:33 96 17 151/63 97 09/15/23 17:00 121 H 20 142/98 09/15/23 16:40 120 H 18 142/98 94 L 09/15/23 16:00 103 H 17 181/106 98 09/15/23 15:36 105 H 16 181/106 100 Intake and Output 09/16/23 09/16/23 09/16/23 06:59 14:59 22:59 Output Total 500 Balance -500 Output: Urine 500 Straight 500 General: Lying in bed and does not appear in acute distress. Neuro: Very limited because of his cooperation. Patient is very uncooperative during examination and is restless upon trying to examine him and he resists. Patient is not verbally responsive to commands. Sometimes he will look to the right or left but not tracking a particular person. Mute No facial weakness He would flail the left arm. His left upper all extremity above gravity is to assess individual muscle strength Hard to assess reflexes or sensation. Results - Laboratory Findings CBC and BMP: 09/16/23 02:04 09/15/23 16:11 Abnormal Lab Findings: Abnormal Labs 09/15/23 09/15/23 09/15/23 13:59 13:59 16:11 WBC MCV 100.1 H Neutrophils # Sodium 136 L Carbon Dioxide 21 L BUN 21 H Glucose 118 H POC Glucose (mg/dL) Creatine Kinase 174 H Cholesterol LDL Cholesterol, Calc 09/15/23 09/16/23 09/16/23 22:37 02:04 02:04 WBC 12.7 H MCV 101.1 H Neutrophils # 10.1 H Sodium Carbon Dioxide BUN Glucose POC Glucose (mg/dL) 117 H Creatine Kinase Cholesterol 209.00 H LDL Cholesterol, Calc 141.3 H Assessment and Plan Assessment: This is a 68-year-old gentleman who presents because of altered mental status. Girlfriend seems the patient was confused and drove into the [employer] garden and was babbling. AED appears he has left upper extremity weakness neglect in the left arm. While in the ED he had seizure-like activity. He was given Ativan as well as Keppra loading dose. He continues to be confused agitated and restless. New onset seizure with left upper extremity weakness and ?neglect left arm that was appreciated by the ED team. Rule out stroke vs mass not seen on CT. Initial CT head is unremarkable Encephalopathy due to above Hypertensive urgency Tobacco use Does not appear the patient follows up with the PCP or address his medical issues per girlfriend Plan: I ordered MRI of the brain with and without. It can be hard to obtain MRI at this moment because of patient cooperation. I ordered a routine EEG and we had to give him 2 mg of Ativan to obtain the test. 2D echo was ordered and is pending Continue Keppra 500 mg every 12 hours. He received 1500 mg once in the ED. He is on aspirin 325 daily and I started him on Lipitor 40 mg nightly for secon vj stroke prophylaxis Continue neurochecks Cardiac monitoring PT OT and FILLER SPREADER are consulted I started the patient on Seroquel 25 mg nightly for his agitation. Can consider Haldol 1 mg as needed every 4 hours. Will defer the rest of the medical management to primary and other specialists For DVT prophylaxis the patient is on Lovenox I discussed with the patient's girlfriend is at bedside and the patient's son as well as the primary team [employer] VICE PRESIDENT. Thank for the consultation Time with Patient: Greater than 30
[2023-09-16] MEDS: LORazepam 2 MG/ML INJ IV PRN (16:00)
[2023-09-16] MEDS: ZIPRASIDONE 20 MG VIAL IM STA (16:03)
[2023-09-16] MEDS: hydrALAZINE HCL 20 MG/ML 1 ML VIAL IVP PRN (17:39)
[2023-09-16] MEDS: ATORVASTATIN 40 MG TAB PO SCH (21:44)
[2023-09-16] MEDS: QUEtiapine 25 MG TAB PO SCH (21:44)
[2023-09-16] MEDS: levETIRAcetam IV 500 MG/5 ML VIAL IVP SCH (21:52)
--- NOTE | 2023-09-16 22:37 | EEG ---
ELECTROENCEPHALOGRAM REPORT CLINICAL HISTORY: This is a 68-year-old gentleman, who presented to the ED with altered mental status. While in the ED, he had seizure-like activity. The video EEG is obtained to evaluate for seizure epileptiform activity. RELEVANT MEDICATIONS: 1. Keppra. 2. Ativan. EEG TYPE: This is a routine 21-channel EEG with video using the 10/20 electrode placement system. DESCRIPTION: Wakefulness is obtained. During awake state, the posterior-dominant rhythm consists of [id number] voltage of 9 to 10 hertz activity that is well modulated and well sustained. There is no physiological stage 2 sleep architecture. There is no focal slowing. During the study, the patient was restless. Interictal ictal is none. ACTIVATION PROCEDURE: Photic stimulation and hyperventilation are not performed. CLINICAL INTERPRETATION: This is a normal routine EEG. There is no focal slowing, epileptiform discharge, or seizure on the EEG. A normal routine EEG does not rule out underlying epilepsy. Clinical correlation is recommended. MMODL / IJN: [id number] /
[2023-09-17 03:39] LABS: Appearance,Urine Clear (Clear); Bacteria,Urine Rare /hpf; Bilirubin,Urine Negative (Negative); Blood,Urine Negative (Negative); Color,Urine Yellow; Glucose,Urine (UA) Negative (Negative); Ketones,Urine 2+ (Negative); Leukocyte Esterase,Urine Small (Negative); Mucus,Urine Rare /hpf; Nitrite,Urine Negative (Negative); Protein,Urine 1+ (Negative); RBC,Urine 1 /hpf (0-5); Specific Gravity,Urine 1.023 (1.001-1.035); Urobilinogen,Urine <2.0 mg/dL (<2.0); WBC,Urine 13 /hpf (0-5)
--- NOTE | 2023-09-17 03:54 | P.CNPUL ---
History of Present Illness Consult date: 09/17/23 Requesting physician: Tony Kathleen Reason for consult: other (Evaluation for ICU) Chief complaint: Altered mental status and left arm weakness History of present illness: Patient is a 68-year-old white male with unknown past medical history. Patient is currently aphasic and unable to provide any information. Apparently, patient was noted to be acting abnormal by his neighbor earlier yesterday afternoon. He reportedly had left arm weakness/neglect. Unknown last well time. Patient was brought into the emergency room by EMS 09/15/2023. While in the emergency room, he did reportedly have seizure-like activity, which was terminated with 1 mg of Ativan. He was also loaded with 1500 mg of Keppra and started on Keppra 500 mg [address] a day[address] of the brain did not show any acute intracranial process. No intracranial hemorrhage or mass effect. Brain CTA of head and neck did not show evidence of dissection of the cervical internal carotid arteries or vertebral arteries or any evidence of significant stenosis at the carotid bifurcations. No evidence of intracranial high-grade stenosis or intracranial aneurysm. No reported fevers. Urine toxicology screen negative. Serum alcohol less than 10. On my evaluation, the patient is alert. He is completely aphasic. No facial asymmetry. He will track me with his eyes around the bed. He does not follow commands. He is moving all 4 extremities. No observable hemiparesis/plegia. No noted seizure-like activity. Earlier he was reportedly restless and agitated. Given one time dose of Geodon and started on Seroquel. Blood pressure is hypertensive, recorded as high as 205/125. As needed hydralazine was added, and blood pressures improved to 165/82. EKG done on arrival consistent with sinus tachycardia. No obvious acute ischemic changes. Most recent CBC from yesterday: WBC count 12.7, hemoglobin 13.9, hematocrit 43.5, platelets 170. BMP from admission: Sodium 137, potassium 4.2, chloride 106, serum bicarb 21, BUN 18, creatinine 1.14, glucose 118. LFTs not elevated. Troponins 0.015 and 0.027 respectively. We were consulted for ICU evaluation. Patient does not necessarily need ICU management at this time. No further seizure activity. hemodynamically is stable. Follow-up brain MRI pending. Patient started on a spirin and statin. Prognosis is certainly guarded. Review of Systems ROS unobtainable: due to mental status Past Medical History Past Medical History: No Reported History History of Any Multi-Drug Resistant Organisms: None Reported Past Surgical History: No Surgical Hx Reported Past Psychological History: No Psychological Hx Reported Smoking Status: Current every day smoker Past Alcohol Use History: Occasional Past Drug Use History: None Reported Medications and Allergies Home Medications Medication Instructions Recorded Confirmed Type No Known Home Medications 09/15/23 09/15/23 History Allergies Allergy/AdvReac Type Severity Reaction Status Date / Time No Known Allergies Allergy Verified 09/15/23 14:58 Physical Exam Vitals: Vital Signs Pulse Resp BP Pulse Ox 09/16/23 22:00 94 18 174/104 94 L 09/16/23 20:26 97 18 165/82 97 09/16/23 16:55 97 18 170/115 97 09/16/23 04:00 83 18 148/92 97 GENERAL EXAM: Alert, 68-year-old white male, has pulled his gown off and is disheveled, is restless. Has arm behavioral restraints on. HEAD: Normocephalic and atraumatic EYES: Normal reaction of pupils, equal size. NOSE: Clear with pink turbinates. THROAT: No erythema or exudates. NECK: No masses, no JVD. No nuchal rigidity. CHEST: No chest wall deformity. LUNGS: Equal air entry with no crackles, wheeze, rhonchi or dullness. On 2 L/min nasal cannula. No accessory muscle use. CVS: S1 and S2 normal with no audible murmur, regular rhythm. No extra heart sounds ABDOMEN: No hepatosplenomegaly, active bowel sounds, no guarding or rigidity. SPINE: No scoliosis or deformity SKIN: No rashes CENTRAL NERVOUS SYSTEM: Patient is currently restrained in bed. He is alert and tracks me around the room, currently aphasic, does not follow any commands, no obvious facial asymmetry, no obvious hemiparesis/hemiplegia, no seizure activity noted. EXTREMITIES: There is no peripheral edema or cyanosis. Significant digital clubbing. Peripheral pulses are intact. Results - Laboratory Findings CBC and BMP: 09/17/23 14:10 09/17/23 14:10 PT/INR, D-dimer PT 10.6 sec (10.0-12.5) 09/16/23 02:04 INR 1.0 (<1.2) 09/16/23 02:04 Abnormal lab findings: Abnormal Labs 09/15/23 09/15/23 09/15/23 13:59 13:59 16:11 WBC MCV 100.1 H Neutrophils # Sodium 136 L Carbon Dioxide 21 L BUN 21 H Glucose 118 H POC Glucose (mg/dL) Creatine Kinase 174 H Cholesterol LDL Cholesterol, Calc 09/15/23 09/16/23 09/16/23 22:37 02:04 02:04 WBC 12.7 H MCV 101.1 H Neutrophils # 10.1 H Sodium Carbon Dioxide BUN Glucose POC Glucose (mg/dL) 117 H Creatine Kinase Cholesterol 209.00 H LDL Cholesterol, Calc 141.3 H - Diagnostic Findings Chest x-ray: image reviewed Assessment and Plan Assessment: Altered mental status, currently under investigation, CT of the brain did not show any acute intracranial process. No intracranial hemorrhage or mass effect. Brain CTA of head and neck did not show evidence of dissection of the cervical internal carotid arteries or vertebral arteries or any evidence of significant stenosis at the carotid bifurcations. No evidence of intracranial high-grade stenosis or intracranial aneurysm. No fevers. Toxicology screen negative. CVA is not ruled out. Brain MRI is pending. Seizure, possibly new onset, terminated with 1 mg Ativan, patient also loaded with 1500 mg of Keppra and started on Keppra 500 mg twice a day. Follow-up EEG does not show any epileptiform discharge/seizure or focal slowing. Aphasia/dysphasia Acute hypoxemic respiratory failure, currently on 2 L/min nasal cannula, chest x-ray does not show any acute cardiopulmonary process, there is flattening of the diaphragm, prominent interstitial changes, and increased lucency of the lung apices, consistent with COPD. Hypertensive urgency, improved with as needed hydralazine Hyperlipidemia Suspect underlying chronic obstructive pulmonary disease, does not appear in exacerbation Chronic tobacco dependence reported Plan: Patient's medications, labs, imaging were reviewed Neurology is following the case Patient needs additional workup, brain MRI is pending. EEG noted. No further seizure-like activity reported. Able to protect airway. No aspiration events reported. Toxicology screen negative. Afebrile. UA to be collected. Would benefit from environmental health and safety leader. Already in seizure precautions. Started on aspirin and statin. Hypertension is better controlled with addition of as needed hydralazine. Patient is hemodynamically stable. No need for ICU admission at this point. He is already being admitted to [address] [place] [address]. Please reach out for additional concerns. I have personally seen and examined the patient, performed the documentation and the assessment and plan as written. Number of minutes spent on the visit:20 This is a joint evaluation that was done along with the nurse practitioner. This evaluation was done in more than 30 minutes. The patient has an acute altered mental status which is currently on the sedation. The neck is not stif f. Nevertheless, the patient had an episode of seizure and the patient is being seen by neurology. I had a discussion with the neurologist. The patient will need a ID consultation and a lumbar puncture to rule out encephalitis. MRI of the brain is pending. The patient is currently on room air oxygen. The patient is hemodynamically stable. He is able to protect his airways. Will admit to [facility] for further neurowork-up. Recommend starting the patient on IV Rocephin. Recommend starting the patient on IV acyclovir. Time with Patient: Greater than 30
[2023-09-17 05:24] LABS: ABG Base Excess -0.8 mmol/L; ABG HCO3 24 mmol/L (21-25); ABG Oxygen Saturation 98.6 % (94-97); ABG PCO2 38 mmHg (35-45); ABG PO2 111 mmHg (83-108); Allen Test Performed? Yes
[2023-09-17] MEDS: PANTOPRAZOLE 40 MG TABLET PO SCH (06:48)
[2023-09-17] MEDS: ENOXAPARIN 40 MG/0.4 ML SYRINGE SQ SCH (09:28)
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
[2023-09-17 15:26] LABS: Basophils % (A) 0 %; Eosinophils # (A) 0.1 k/uL (0-0.7); Eosinophils % (A) 1 %; HGB 15.4 gm/dL (13.0-17.5); Lymphocytes # (A) 1.4 k/uL (1.0-4.8); Lymphocytes % (A) 14 %; MCV 100.1 fL (80.0-100.0); Mean Platelet Volume 9.9; Monocytes # (A) 0.7 k/uL (0-1.0); Monocytes % (A) 7 %; Neutrophils # (A) 7.9 k/uL (1.3-7.7); Neutrophils % (A) 77 %; Platelet Count 175 k/uL (150-450); RDW 13.3 % (11.5-15.5); WBC 10.2 k/uL (3.8-10.6)
[2023-09-17 15:33] LABS: ALT 27 U/L (4-49); African American GFR (CKD) 85 (>60 ml/min/1.73 sqM); Albumin 4.3 g/dL (3.5-5.0); Anion Gap 14 mmol/L; Blood Urea Nitrogen 20 mg/dL (9-20); Calcium 9.5 mg/dL (8.4-10.2); Carbon Dioxide 18 mmol/L (22-30); Chloride 108 mmol/L (98-107); Glucose 62 mg/dL (74-99); Non-African American GFR(CKD) 74 (>60 ml/min/1.73 sqM); Sodium 140 mmol/L (137-145); Total Bilirubin 1.3 mg/dL (0.2-1.3)
[2023-09-17 15:38] LABS: Potassium 4.2 mmol/L (3.5-5.1)
[2023-09-17 15:39] LABS: AST 57 U/L (17-59); Alkaline Phosphatase 90 U/L (38-126)
--- NOTE | 2023-09-17 16:05 | CT ---
EXAMINATION TYPE: CT brain wo con DATE OF EXAM: 09/17/2023 COMPARISON: 09/15/2023 HISTORY: SEIZURE/ams CT DLP: 1197.4 mGycm Automated exposure control for dose reduction was used. Findings: The ventricles, basal cisterns and sulci over the convexities are within normal limits and there is n o mass effect or shift of midline structures. No abnormal density is seen throughout the brain parenchyma and there is no acute intra or extra-axia l hemorrhage. The posterior fossa including the brainstem, fourth ventricle and cerebellar pontine angles appear no rmal. Intraorbital contents appear normal and symmetric. There is mild chronic inflammatory change in the sphenoid sinus and left maxillary sinus.. The remain ing paranasal sinuses and mastoid air cells are well aerated The calvarium is intact. IMPRESSION: No significant abnormality seen. There is no acute bleed or mass effect.
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
[2023-09-17] MEDS: ACYCLOVIR SODIUM 1,000 MG in SODIUM CHLORIDE 0.9% 250 ML IVPB SCH (18:24)
[2023-09-17] MEDS: Lacosamide IV (ages 17+ yrs) 200 MG/20 ML ML IVP SCH (21:07)
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
[2023-09-17 22:44] LABS: Glucose,Whole Blood 95 mg/dL (70-110)
[2023-09-18] MEDS: LORazepam 1 MG/0.5 ML VIAL IV PRN (02:31)
[2023-09-18] MEDS: SODIUM CHLORIDE 0.9% 1,000 ML IV SCH (10:03)
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
--- NOTE | 2023-09-18 12:30 | P.PN ---
Progress Note - Text Progress Note Date: 09/18/23 The patient need lumbar puncture for diagnostic purpose, for altered mental status, patient received Lovenox today at 9 AM, the lumbar puncture cannot be done until 12 hours lapsed after the lovonex was given, for this reason we will do the procedure tomorrow a.m.,
[2023-09-18 13:02] VITALS: BMI 25.7
[2023-09-18] MEDS: ZIPRASIDONE 20 MG VIAL IM PRN (15:50)
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
--- NOTE | 2023-09-18 16:20 | P.PN ---
Subjective Progress Note Date: 09/18/23 Principal diagnosis: Reason for follow-up is encephalitis questionable herpes Patient is a 68-year-old male who was brought into the hospital for evaluation of mental status changes, patient also have a seizure activity and did have a negative workup for CVA with increasing confusion concern for possible encephalitis prompting this consultation. On today's evaluation that is 09/18/2023 the patient remains to be afebrile patient seen to be doing slightly better per the family at the bedside patient was able to respond to his name no vomiting diarrhea with the changes reported. Patient white count of 10.2 creatinine 1.03 as of yesterday LP pending Objective - Vital Signs Vital signs: Vital Signs Temp 97.8 F 09/18/23 07:58 Pulse 116 H 09/18/23 10:18 Resp 17 09/18/23 07:58 BP 142/83 09/18/23 10:18 Pulse Ox 94 L 09/18/23 07:58 FiO2 Intake & Output 09/17/23 09/18/23 09/18/23 18:59 06:59 18:59 Intake Total 250 Balance 250 Weight 86.183 kg Intake: Intake, IV Titration 250 Amount Acyclovir Sodium 1,000 mg 250 In Sodium Chloride 0.9% 250 ml @ 270 mls/hr IVPB Q8HR [facility] Rx#:[id number] Other: Voiding Method Urinal # Voids 1 - Exam GENERAL DESCRIPTION: An elderly male lying in bed in no distress RESPIRATORY SYSTEM: Unlabored breathing , decreased breath sounds at bases HEART: S1 S2 regular rate and rhythm , ABDOMEN: Soft , no tenderness EXTREMITIES: No edema feet - Labs CBC & Chem 7: 09/17/23 14:10 09/17/23 14:10 Labs: Abnormal Lab Results - Last 24 Hours (Table) 09/17/23 09/17/23 09/17/23 Range/Units 14:10 14:10 14:10 MCV 100.1 H (80.0-100.0) fL Neutrophils # 7.9 H (1.3-7.7) k/uL Chloride 108 H (98-107) mmol/L Carbon Dioxide 18 L (22-30) mmol/L Glucose 62 L (74-99) mg/dL C-Reactive Protein 4.4 H (<1.0) mg/dL Assessment and Plan (1) Encephalopathy acute Current Visit: Yes Status: Acute Code(s): G93.40 - ENCEPHALOPATHY, UNSPECIFIED SNOMED Code(s): 07384142 Plan: 1patient does not hospital mental status changes likely multifactorial patient did have a seizure activity has been new for him also noticed to have elevated blood pressure concern for possible hypertensive encephalopathy question of encephalitis less likely as the patient not running fever did have mild elevated white count yesterday has normalized subsequently however not entirely excluded 2-anesthesia has been consulted to do LP, case was discussed with Dr. Cobb on the floor hold complaining hopefully this afternoon, we will request CSF to be sent for cell count differential Gram stain protein HSV DNA by PCR 3-we are currently waiting for inflammatory markers and HSV serology 4-patient to continue with acyclovir while waiting for the workup to be completed Family at the bedside questions were answered Dictation was produced using [employer] dictation software. please excuse any grammatical, word or spelling errors. Time with Patient: Less than 30
--- NOTE | 2023-09-18 17:24 | MR ---
EXAMINATION TYPE: MR brain wo con DATE OF EXAM: 09/18/2023 COMPARISON: HISTORY: Seizure CONTRAST: Performed utilizing 9 mL intravenous Gadavist gadolinium contrast. TECHNIQUE: Multiplanar, multiecho imaging on a 3.0 Rachel magnet is performed through the brain. Stud y is performed within 24 hours of arrival to the hospital. There is some limitation due to motion art ifact. Portions of the examination. The craniovertebral junction is normal. The pituitary is poorly visualized and cannot be evaluated. Diffusion-weighted imaging is performed. There is a punctate ill-defined hyperintensity within the l eft trilobar region. Small focal acute ischemic change may be present. Couple scattered hyperintensities on inversion recovery weighted sequences are present. This includes the white matter acute change in the trilobar region. Ventricles and sulci are prominent for the patient age. IMPRESSION: 1. Acute ischemic type change within the left trilobar deep white matter. 2. Few nonspecific white matter changes can be related to chronic white matter ischemic change. 3. Examination with limitations due to motion artifact discussed above.
--- NOTE | 2023-09-18 20:53 | P.PCN ---
Date of Procedure: 09/18/23 Procedure(s) Performed: Preoperative diagnosis: Altered mental status Post operative diagnoses: Altered mental status Procedure= lumbar puncture Anesthesia= local infiltration with lidocaine 1% 3 mL. Condition: stable Complication: none. Description of the procedure procedure risk and benefits discussed with the patient and family, consent signed. Patien`s in room 523 placed in sitting position , back prepped with chlorhexidine 3 times been local infiltration of the skin and subcutaneous tissue with lidocaine 1% 3 mL for skin and subcu interstitial frustrations at L4 5 levels then 22-gauge Quincke-type needle advanced slowly at L4- 5 interlaminar space there was positive cerebrospinal fluid which was clear, no heme, no paresthesia ,total of 9 ML of clear cerebrospinal fluid collected in 4 different tubes 2-2-1/2 mL in each, then the needle removed and a Band-Aid applied and patient tolerated the procedure well without any complications.
[2023-09-19 02:21] LABS: Glucose,CSF 59 mg/dL (40-70); Total Protein,CSF 77 mg/dL (12-60)
[2023-09-19] MEDS: HALOPERIDOL LACTATE 5 MG/ML 1 ML VIAL IM PRN (02:28)
[2023-09-19 02:50] LABS: CSF Tube Number 4
[2023-09-19 02:51] LABS: Appearance,CSF Clear; CSF Tube Volume 1.5; Nucleated Cells, CSF 1 u/L (0-5); Red Blood Cell,CSF 3 u/L (0-10)
[2023-09-19] MEDS: ENOXAPARIN 40 MG/0.4 ML SYRINGE SQ SCH (09:07)
--- NOTE | 2023-09-19 10:47 | P.PN ---
Subjective Progress Note Date: 09/19/23 This is a 68-year-old male patient of Dr. Solis who presented to the ERWith concerns of altered mental status changes. According to at bedside Patient was found driving around confused EMS was called and upon exam patient was having difficulty following basic commands but was able to move all 4 ex tremities.According to upon arrival to ER patient did have witnessed seizure. Patient does not have a history of seizure and no other significant medical history except nicotine dependence. Patient does drink a couple beers a night according to patient has not drink a lot over the past month. Patient was treated for vertigo approximately 1 month ago But no other significant history noted. No recent change to diet or medication. Head CT was completed showing no acute intracranial process. Nonspecific white matter changes likely secondary to chronic small vessel ischemic disease.CT angiogram completed showing no evidence of dissection of the cervical internal carotid arteries or vertebral arteries are any evidence of significant stenosis of the carotid bifurcations. No evidence of intracranial high-grade stenosis or intracranial aneurysm.Chest x-ray completed showing no acute cardiopulmonary disease no changes.At this time patient remains confused does not follow commands. Patient was started on Keppra per ER. At this time neurology service is consulted. MRI of the brain and EEG has been ordered. 2-D echocardiogram ordered. Repeat labs ordered. PT OT and speech service is consulted. Current vital signs temp 98.3, heart rate 83, respiratory rate 18, blood pressure 148/92 with pulse ox 97%. on 09/17/2023 patient was seen and examined he remains in the ER awaiting bed availability, patient mental status remains abnormal he is still confused and slightly agitated, at this time infectious disease consultation was requested in regard to possible acute encephalitis, patient was started on IV acyclovir, he was also started on IV ceftriaxone for urinary tract infection, neurology, critical care, and infectious disease consult are following, consult for and his Tesio was initiated for lumbar puncture On 09/18/2023 patient is currently resting in bed appears more calm than yesterday per family at bedside. Patient was started on acyclovir and Rocephin. Infectious disease, critical care neurology services are Consulted. Possible plans for lumbar puncture. Current vital signs temp 97.8, heart rate 96, blood pressure 142/83 with pulse ox 99% on room air On 09/19/2023 patient was seen and examined on the medical floor he is currently resting in bed appears more calm than yesterday per family at bedside. he is answering a few questions appropriately. Patient was started on acyclovir and Rocephin. Infectious disease, critical care neurology services are Consulted. lumbar puncture done and results reviewed, no evidence of bacterial infection, awaiting results on her face antibodies, MRI was done and reveals an area of acute stroke, patient was seen and examined by neurology, he is improving gradually. Objective - Vital Signs Vital signs: Vital Signs Temp 98.3 F 09/19/23 02:00 Pulse 115 H 09/19/23 02:00 Resp 18 09/19/23 02:00 BP 187/103 09/19/23 02:00 Pulse Ox 94 L 09/19/23 02:00 FiO2 Intake & Output 09/18/23 09/19/23 09/19/23 18:59 06:59 18:59 Intake Total 900 Balance 900 Weight 86.183 kg Intake: Intake, IV Titration 900 Amount Sodium Chloride 0.9% 1, 900 000 ml @ 75 mls/hr IV . [id number] [facility] Rx#:[id number] Other: Voiding Method Urinal Diaper Incontinent # Voids 1 3 - Exam Head normocephalic Neck supple Lungs clear to auscultation bilaterally no wheezing or crackles Heart regular rate and rhythm S1-S2, no rub or gallop Abdomen is soft nontender nondistended positive bowel sounds no hepatosplenomegaly Extremities no edema Neuro alert and orientated to 0.. Patient is confused and not following commands - Labs CBC & Chem 7: 09/17/23 14:10 09/17/23 14:10 Labs: Abnormal Lab Results - Last 24 Hours (Table) 09/19/23 Range/Units 01:50 CSF Total Protein 77 H (12-60) mg/dL Microbiology - Last 24 Hours (Table) 09/17/23 03:27 Urine Culture - Preliminary Urine,Voided 09/17/23 14:10 Blood Culture - Preliminary Blood Assessment and Plan Assessment: 1. Altered mental status changes possibly secondary to stroke and/or seizure, today patient's condition has not improved, infectious disease consultation was requested, patient was started on IV acyclovir empirically, consultation for and his Tesio was initiated for a LP 2. Witnessed seizure in ER patient was started on Keppra 3. Episode of vertigo approximately 1 month ago 4. Nicotine dependence At this time patient will be admitted Neurology services consulted MRI EEG and 2-D echo has been ordered Continue seizure precautions Repeat labs ordered Normal saline at 100 ordered PT OT and speech service is consulted
--- NOTE | 2023-09-19 11:31 | CA ---
Transthoracic Echo Report Name: Nae Mart Age: 68 Gender: M : 1955 Exam Date: 09/18/2023 15:38 Exam Location: [facility] Ht (in): 72 Wt (lb): 190 Ordering Physician: Tony Kathleen MD Attending/Referring Phys: Metalizing Machine Operator Marcella Lafleur RDCS Procedure CPT: Indications: stroke Cardiac Hx: Technical Quality: Fair Contrast 1: Total Dose (mL): Contrast 2: Total Dose (mL): MEASUREMENTS (Male / Female) Normal Values 2D ECHO LV Diastolic Diameter PLAX 3.0 cm 4.2 - 5.9 / 3.9 - 5.3 cm LV Systolic Diameter PLAX 2.6 cm IVS Diastolic Thickness 1.6 cm 0.6 - 1.0 / 0.6 - 0.9 cm LVPW Diastolic Thickness 1.6 cm 0.6 - 1.0 / 0.6 - 0.9 cm LV Relative Wall Thickness 1.1 LA Volume 39.7 cm??? 18 - 58 / 22 - 52 cm??? LA Volume Index 18.9 cm???/m??? 16 - 28 cm???/m??? DOPPLER AV Peak Velocity 196.8 cm/s AV Peak Gradient 15.5 mmHg AV Mean Velocity 141.6 cm/s AV Mean Gradient 8.9 mmHg AV Velocity Time Integral 34.0 cm LVOT Peak Velocity 128.3 cm/s LVOT Peak Gradient 6.6 mmHg LVOT Velocity Time Integral 23.2 cm MV Area PHT 5.4 cm??? Mitral E Point Velocity 57.1 cm/s Mitral A Point Velocity 111.0 cm/s Mitral E to A Ratio 0.5 MV Deceleration Time 139.9 ms MV E' Velocity 6.3 cm/s Mitral E to MV E' Ratio 9.1 TR Peak Velocity 239.3 cm/s TR Peak Gradient 22.9 mmHg Right Ventricular Systolic Press 27.9 mmHg FINDINGS Left Ventricle Moderately increased left ventricular wall thickness. Left ventricular cavity size normal. Normal left ventricular systolic function with no obvious regional wall motion abnormalities. Left ventricular ejection fraction is estimated at 55-60grade 1 diastolic dysfunction. %. Right Ventricle Normal right ventricular size and function. Right ventricular systolic pressure within normal limits. Right Atrium Right atrium not well visualized. Left Atrium Normal left atrial size. Mitral Valve Structurally normal mitral valve. Mild mitral annular calcification. No mitral stenosis, regurgitation or prolapse. Aortic Valve No aortic valve stenosis or regurgitation. Tricuspid Valve Structurally normal tricuspid valve. Mild tricuspid regurgitation. Pulmonic Valve Pulmonic valve not well visualized. Pericardium No pericardial effusion. Aorta Aortic root and proximal ascending aorta not well visualized. CONCLUSIONS Moderate increased left ventricular wall thickness Left ventricular ejection fraction 55-60% RVSP 28 Mild mitral annular calcification Mild tricuspid regurgitation No pericardial effusion Previewed by: Dr. Tab Bautista DO (Electronically Signed) Final Date: 19 Sep 2023 11:31
--- NOTE | 2023-09-19 14:26 | P.PN ---
Subjective Progress Note Date: 09/18/23 Patient is a 68-year-old white male with unknown past medical history. Patient is currently aphasic and unable to provide any information. Apparently, patient was noted to be acting abnormal by his neighbor earlier yesterday afternoon. He reportedly had left arm weakness/neglect. Unknown last well time. Patient was brought into the emergency room by EMS 09/15/2023. While in the emergency room, he did reportedly have seizure-like activity, which was terminated with 1 mg of Ativan. He was also loaded with 1500 mg of Keppra and started on Keppra 500 mg twice a day. CT of the brain did not show any acute intracranial process. No intracranial hemorrhage or mass effect. Brain CTA of head and neck did not show evidence of dissection of the cervical internal carotid arteries or vertebral arteries or any evidence of significant stenosis at the carotid bifurcations. No evidence of intracranial high-grade stenosis or intracranial aneurysm. No reported fevers. Urine toxicology screen negative. Serum alcohol less than 10. On my evaluation, the patient is alert. He is completely aphasic. No facial asymmetry. He will track me with his eyes around the bed. He does not follow commands. He is moving all 4 extremities. No observable hemiparesis/plegia. No noted seizure-like activity. Earlier he was reportedly restless and agitated. Given one time dose of Geodon and started on Seroquel. Blood pressure is hypertensive, recorded as high as 205/125. As needed hydralazine was added, and blood pressures improved to 165/82. EKG done on arrival consistent with sinus tachycardia. No obvious acute ischemic changes. Most recent CBC from yesterday: WBC count 12.7, hemoglobin 13.9, hematocrit 43.5, platelets 170. BMP from admission: Sodium 137, potassium 4.2, chloride 106, serum bicarb 21, BUN 18, creatinine 1.14, glucose 118. LFTs not elevated. Troponins 0.015 and 0.027 respectively. We were consulted for ICU evaluation. Patient does not necessarily need ICU management at this time. No further seizure activity. hemodynamically is stable. Follow-up brain MRI pending. Patient started on aspirin and statin. Prognosis is certainly guarded. On today's evaluation of 09/18/2023, the patient is being seen for a follow-up. The patient seems to be much more comfortable and calm on today's evaluation is resting comfortably in bed. He remains on a combination of Rocephin and acyclovir. The plan is to proceed with a lumbar puncture this will be done by the seizure today. ID and urology are both on the case. He is on room air oxygen with a pulse ox of 99%. Rest of the blood work shows a WBC of 10.2 with a hemoglobin 15.4 and this was done yesterday. Electrolytes are all stable.EEG showed no significant abnormalities. No evidence of any epileptic foci.. Objective - Vital Signs Vital signs: Vital Signs Temp 97.9 F 09/18/23 14:00 Pulse 84 09/18/23 14:00 Resp 18 09/18/23 14:00 BP 167/82 09/18/23 14:00 Pulse Ox 96 09/18/23 14:00 FiO2 Intake & Output 09/17/23 09/18/23 09/18/23 18:59 06:59 18:59 Intake Total 250 Balance 250 Weight 86.183 kg 86.183 kg Intake: Intake, IV Titration 250 Amount Acyclovir Sodium 1,000 mg 250 In Sodium Chloride 0.9% 250 ml @ 270 mls/hr IVPB Q8HR [facility] Rx#:[id number] Other: Voiding Method Urinal # Voids 1 - Exam GENERAL EXAM: Alert, 68-year-old white male, much more comfortable compared to yesterday and resting comfortably in bed. Remains confused and altered. Currently on room air oxygen. HEAD: Normocephalic and atraumatic EYES: Normal reaction of pupils, equal size. NOSE: Clear with pink turbinates. THROAT: No erythema or exudates. NECK: No masses, no JVD. No nuchal rigidity. CHEST: No chest wall deformity. LUNGS: Equal air entry with no crackles, wheeze, rhonchi or dullness. No accessory muscle use. CVS: S1 and S2 normal with no audible murmur, regular rhythm. No extra heart sounds ABDOMEN: No hepatosplenomegaly, active bowel sounds, no guarding or rigidity. SPINE: No scoliosis or deformity SKIN: No rashes CENTRAL NERVOUS SYSTEM: Patient is currently restrained in bed. He is alert and tracks me around the room, currently aphasic, does not follow any commands, no obvious facial asymmetry, no obvious hemiparesis/hemiplegia, no seizure activity noted. EXTREMITIES: There is no peripheral edema or cyanosis. Significant digital clubbing. Peripheral pulses are intact. - Labs CBC & Chem 7: 09/17/23 14:10 09/17/23 14:10 Labs: Abnormal Lab Results - Last 24 Hours (Table) 09/17/23 09/17/23 09/17/23 Range/Units 14:10 14:10 14:10 MCV 100.1 H (80.0-100.0) fL Neutrophils # 7.9 H (1.3-7.7) k/uL Chloride 108 H (98-107) mmol/L Carbon Dioxide 18 L (22-30) mmol/L Glucose 62 L (74-99) mg/dL C-Reactive Protein 4.4 H (<1.0) mg/dL Assessment and Plan Assessment: Altered mental status, currently under investigation, CT of the brain did not show any acute intracranial process. No intracranial hemorrhage or mass effect. Brain CTA of head and neck did not show evidence of dissection of the cervical internal carotid arteries or vertebral arteries or any evidence of significant stenosis at the carotid bifurcations. No evidence of intracranial high-grade stenosis or intracranial aneurysm. No fevers. Toxicology screen negative. CVA is not ruled out. Brain MRI is pending. Seizure, possibly new onset, terminated with 1 mg Ativan, patient also loaded with 1500 mg of Keppra and started on Keppra 500 mg twice a day. Follow-up EEG does not show any epileptiform discharge/seizure or focal slowing. The patient is currently on Vimpat. Aphasia/dysphasia Acute hypoxemic respiratory failure, currently on 2 L/min nasal cannula, chest x-ray does not show any acute cardiopulmonary process, there is flattening of the diaphragm, prominent interstitial changes, and increased lucency of the lung apices, consistent with COPD. Hypertensive urgency, improved with as needed hydralazine Hyperlipidemia Suspect underlying chronic obstructive pulmonary disease, does not appear in exacerbation Chronic tobacco dependence reported Plan: EEG was noted and there is no ongoing seizure activity the patient is currently on Vimpat Lumbar puncture to be done by anesthesia Continue IV Rocephin Continue IV acyclovir MRI of the brain Neurology consult ID consult Currently comfortable on room air oxygen. No aspiration. No signs of any respiratory insufficiency or distress Afebrile hemodynamic stable No seizure activity Follow-up
--- NOTE | 2023-09-19 14:28 | P.PN ---
Subjective Progress Note Date: 09/19/23 Patient is a 68-year-old white male with unknown past medical history. Patient is currently aphasic and unable to provide any information. Apparently, patient was noted to be acting abnormal by his neighbor earlier yesterday afternoon. He reportedly had left arm weakness/neglect. Unknown last well time. Patient was brought into the emergency room by EMS 09/15/2023. While in the emergency room, he did reportedly have seizure-like activity, which was terminated with 1 mg of Ativan. He was also loaded with 1500 mg of Keppra and started on Keppra 500 mg twice a day. [address] of the brain did not show any acute intracranial process. No intracranial hemorrhage or mass effect. Brain CTA of head and neck did not show evidence of dissection of the cervical internal carotid arteries or vertebral arteries or any evidence of significant stenosis at the carotid bifurcations. No evidence of intracranial high-grade stenosis or intracranial aneurysm. No reported fevers. Urine toxicology screen negative. Serum alcohol less than 10. On my evaluation, the patient is alert. He is completely aphasic. No facial asymmetry. He will track me with his eyes around the bed. He does not follow commands. He is moving all 4 extremities. No observable hemiparesis/plegia. No noted seizure-like activity. Earlier he was reportedly restless and agitated. Given one time dose of Geodon and started on Seroquel. Blood pressure is hypertensive, recorded as high as 205/125. As needed hydralazine was added, and blood pressures improved to 165/82. EKG done on arrival consistent with sinus tachycardia. No obvious acute ischemic changes. Most recent CBC from yesterday: WBC count 12.7, hemoglobin 13.9, hematocrit 43.5, platelets 170. BMP from admission: Sodium 137, potassium 4.2, chloride 106, serum bicarb 21, BUN 18, creatinine 1.14, glucose 118. LFTs not elevated. Troponins 0.015 and 0.027 respectively. We were consulted for ICU evaluation. Patient does not necessarily need ICU management at this time. No further seizure activity. hemodynamically is stable. Follow-up brain MRI pending. Patient started on aspirin and statin. Prognosis is certainly guarded. On today's evaluation of 09/18/2023, the patient is being seen for a follow-up. The patient seems to be much more comfortable and calm on today's evaluation is resting comfortably in bed. He remains on a combination of Rocephin and acyclovir. The plan is to proceed with a lumbar puncture this will be done by the seizure today. ID and urology are both on the case. He is on room air oxygen with a pulse ox of 99%. Rest of the blood work shows a WBC of 10.2 with a hemoglobin 15.4 and this was done yesterday. Electrolytes are all stable.EEG showed no significant abnormalities. No evidence of any epileptic foci.. On 09/19/2023, the patient is being seen for regular follow-up. He is able to communicate and answer a few questions although is still confused. Lumbar puncture was done and there is some mild elevation of the CSF protein at 77. The nucleated white cells are only at 1. No evidence of any RBCs in the CSF and MRI of the brain was completed and it showed an elevated of an ischemic stroke left parietal lobe deep white matter. No seizure activity has been noted. Neurology on the case. ID is on the case. He remains afebrile and hemodynamically stable. Pulse ox is 94% room air oxygen. Objective - Vital Signs Vital signs: Vital Signs Temp 98.4 F 09/19/23 12:18 Pulse 126 H 09/19/23 12:18 Resp 18 09/19/23 12:18 BP 171/98 09/19/23 12:18 Pulse Ox 93 L 09/19/23 12:18 FiO2 Intake & Output 09/18/23 09/19/23 09/19/23 18:59 06:59 18:59 Intake Total 900 Balance 900 Weight 86.183 kg Intake: Intake, IV Titration 900 Amount Sodium Chloride 0.9% 1, 900 000 ml @ 75 mls/hr IV . [id number] [facility] Rx#:[id number] Other: Voiding Method Urinal Diaper Incontinent # Voids 1 3 - Exam GENERAL EXAM: Alert, 68-year-old white male, much more comfortable compared to yesterday and resting comfortably in bed. Remains confused and altered. Currently on room air oxygen. HEAD: Normocephalic and atraumatic EYES: Normal reaction of pupils, equal size. NOSE: Clear with pink turbinates. THROAT: No erythema or exudates. NECK: No masses, no JVD. No nuchal rigidity. CHEST: No chest wall deformity. LUNGS: Equal air entry with no crackles, wheeze, rhonchi or dullness. No accessory muscle use. CVS: S1 and S2 normal with no audible murmur, regular rhythm. No extra heart sounds ABDOMEN: No hepatosplenomegaly, active bowel sounds, no guarding or rigidity. SPINE: No scoliosis or deformity SKIN: No rashes CENTRAL NERVOUS SYSTEM: Patient remains confused, yet able to communicate current level of alertness is improved since admission. EXTREMITIES: There is no peripheral edema or cyanosis. Significant digital c lubbing. Peripheral pulses are intact. - Labs CBC & Chem 7: 09/17/23 14:10 09/17/23 14:10 Labs: Abnormal Lab Results - Last 24 Hours (Table) 09/19/23 Range/Units 01:50 CSF Total Protein 77 H (12-60) mg/dL Microbiology - Last 24 Hours (Table) 09/19/23 01:50 CSF Gram Stain - Preliminary Cerebral Spinal Fluid 09/17/23 03:27 Urine Culture - Preliminary Urine,Voided 09/17/23 14:10 Blood Culture - Preliminary Blood Assessment and Plan Assessment: Altered mental status, currently under investigation, CT of the brain did not show any acute intracranial process. No intracranial hemorrhage or mass effect. Brain CTA of head and neck did not show evidence of dissection of the cervical internal carotid arteries or vertebral arteries or any evidence of significant stenosis at the carotid bifurcations. No evidence of intracranial high-grade stenosis or intracranial aneurysm. No fevers. Toxicology screen negative. The lumbar puncture showed some mild elevation of the protein without any nucleated RBCs or evidence of bleeding. Culture is still pending for now. MRI of the brain shows a left deep white matter trilobar infarct. Seizure, possibly new onset, terminated with 1 mg Ativan, patient also loaded with 1500 mg of Keppra and started on Keppra 500 mg twice a day. Follow-up EEG does not show any epileptiform discharge/seizure or focal slowing. The patient is currently on Vimpat. Aphasia/dysphasia Acute hypoxemic respiratory failure, currently on 2 L/min nasal cannula, chest x-ray does not show any acute cardiopulmonary process, there is flattening of the diaphragm, prominent interstitial changes, and increased lucency of the lung apices, consistent with COPD. Hypertensive urgency, improved with as needed hydralazine Hyperlipidemia Suspect underlying chronic obstructive pulmonary disease, does not appear in exacerbation Chronic tobacco dependence reported Plan: Awaiting neurology input regarding the MRI findings. Neurologic status is stable and level alertness seems to have improved slightly. EEG was noted and there is no ongoing seizure activity the patient is currently on Vimpat Lumbar puncture was done by anesthesia. Continue IV Rocephin Continue IV acyclovir ID to manage the antibiotics. MRI of the brain was noted Neurology consult ID consult Currently comfortable on room air oxygen. No aspiration. No signs of any respiratory insufficiency or distress Afebrile hemodynamic stable No seizure activity
--- NOTE | 2023-09-19 14:57 | P.PN ---
Subjective Progress Note Date: 09/19/23 I am following-up with patient and he is accompanied with his girlfriend and sister and it seems overnight he was extremely agitated and restless. Currently he is sleeping. Is getting Haldol. Her had CSF study which was unremarkable. He had MRI Brain which showed stroke. Objective - Vital Signs Vital signs: Vital Signs Temp 98.4 F 09/19/23 12:18 Pulse 126 H 09/19/23 12:18 Resp 18 09/19/23 12:18 BP 171/98 09/19/23 12:18 Pulse Ox 93 L 09/19/23 12:18 FiO2 Intake & Output 09/18/23 09/19/23 09/19/23 18:59 06:59 18:59 Intake Total 900 Balance 900 Weight 86.183 kg Intake: Intake, IV Titration 900 Amount Sodium Chloride 0.9% 1, 900 000 ml @ 75 mls/hr IV . [id number] [facility] Rx#:[id number] Other: Voiding Method Urinal Diaper Diaper Incontinent Incontinent # Voids 1 3 - Exam General: Lying in bed. Neuro: Deferred per family wishes since he was restless overnight and currently sleeping Some of the workup during this hospital visit consisted of: Temp 97.7F Presentation patient blood pressure is 205/125 which is improving. White blood cell on presentation 7.1 then next day is 12.7K and again is 10.2. MCV is 100.1 Sodium most recent is 137, glucose is 118, calcium is 8.8, magnesium is 1.8, AST ALT is within normal limits Lipid panel: TG 69, cholestrol is 209, LDL 141 and HDL 53 Ammonia level is 28 Lipid panel is triglyceride of 69, cholesterol 209, LDL is 141 and HDL 53. Urine tox screen is nondetected in the serum alcohol is less than 10 2D echo: Moderate increased left ventricular wall thickness. Ejection fraction [address] head is reported as no acute intracranial process. Nonspecific white matter changes. Personally reviewed the CT of the head and agree with the report. CTA head and neck is reported as no evidence of dissection or cervical internal carotid artery or vertebral artery or any evidence of significant stenosis at the carotid bifurcation. No evidence of intracranial high-grade stenosis or intracranial aneurysm. Routine EEG is normal. Repeat CT head is no significant abnormality seen. There is no acute bleed or mass effect. CSF study: clear, colorless, rbc 3, nucltead cell is 1, glucose 59 and protein is 77 MRI Brain showed acute ischemic type changes within the left trilobar deep white matter. Examination limitation due to motion artifact. - Labs CBC & Chem 7: 09/17/23 14:10 09/17/23 14:10 Labs: Abnormal Lab Results - Last 24 Hours (Table) 09/19/23 Range/Units 01:50 CSF Total Protein 77 H (12-60) mg/dL Microbiology - Last 24 Hours (Table) 09/19/23 01:50 CSF Gram Stain - Preliminary Cerebral Spinal Fluid 09/17/23 03:27 Urine Culture - Preliminary Urine,Voided 09/17/23 14:10 Blood Culture - Preliminary Blood Assessment and Plan Assessment: This is a 68-year-old gentleman who presents because of altered mental status. Girlfriend seems the patient was confused and drove into the [employer] garden and was babbling. AED appears he has left upper extremity weakness neglect in the left arm. While in the ED he had seizure-like activity. He was given Ativan as well as Keppra loading dose. He continues to be confused agitated and restless. New onset seizure with suspected left upper extremity weakness and ?neglect left arm that was appreciated by the ED team is due to stroke (MRI Showed stroke over the left trilobar region). Routine EEG is normal. Encephalopathy due to stroke and having hospital induced Delirium. He is afebrile and normal wbc. CSF study is unremarkable for CSF infection (nucleated cell is 1). Hypertensive urgency Tobacco use Does not appear the patient follows up with the PCP or address his medical issues per girlfriend Plan: I will reach out to [place] radiologist for second opinion especially with motion artifact. He is on aspirin 325 daily and Lipitor 40 mg nightly for secondary stroke prophylaxis Will consider DEB if possible down the line once he is more cooperative. Patient was initially started on Keppra 500mg bid but will discontinue because agitation and restless and instead started Vimpat 50mg bid on 09/17/2023. I.D. team started him on Acyclovir and Acylovir is discontinued since CSF study is unremarkable. Continue neurochecks Cardiac monitoring PT OT and SUB ACUTE CARE NURSE are consulted On Haldol PRN and Seroquel 25 mg nightly for his agitation. Will defer the rest of the medical management to primary and other specialists For DVT prophylaxis the patient is on Lovenox The plan is discussed with his girlfriend, patient's sister and primary team. Time with Patient: Less than 30
[2023-09-19] MEDS: METOPROLOL TARTRATE 12.5 MG TAB PO SCH (17:10)
[2023-09-19] MEDS: NICOTINE 14MG/24HR PATCH TRANSDERM SCH (18:42)
[2023-09-19] MEDS: ZIPRASIDONE 20 MG VIAL IM PRN (19:37)
--- NOTE | 2023-09-19 21:00 | P.PN ---
Subjective Progress Note Date: 09/19/23 Principal diagnosis: Reason for follow-up is encephalitis questionable herpes Patient is a 68-year-old male who was brought into the hospital for evaluation of mental status changes, patient also have a seizure activity and did have a negative workup for CVA with increasing confusion concern for possible encephalitis prompting this consultation. On today's evaluation that is 09/19/2023,the patient remains to be afebrile, patient is on room air not requiring supplemental oxygen patient did have period of confusion and some agitation did have a sitter at the bedside, no vomiting or diarrhea has been reported. Patient white count normal at 10.2 creatinine 1.03 patient did have LP completed which was clear colorless only 1 WBC glucose normal protein is 77, patient did have MRI suspicious for ischemic changes no abnormality to the temporal lobes or noticed Objective - Vital Signs Vital signs: Vital Signs Temp 98.3 F 09/19/23 02:00 Pulse 115 H 09/19/23 02:00 Resp 18 09/19/23 02:00 BP 187/103 09/19/23 02:00 Pulse Ox 94 L 09/19/23 02:00 FiO2 Intake & Output 09/18/23 09/19/23 09/19/23 18:59 06:59 18:59 Intake Total 900 Balance 900 Weight 86.183 kg Intake: Intake, IV Titration 900 Amount Sodium Chloride 0.9% 1, 900 000 ml @ 75 mls/hr IV . [id number] [facility] Rx#:[id number] Other: Voiding Method Urinal Diaper Incontinent # Voids 1 3 - Exam GENERAL DESCRIPTION: An elderly male lying in bed in no distress RESPIRATORY SYSTEM: Unlabored breathing , decreased breath sounds at bases HEART: S1 S2 regular rate and rhythm , ABDOMEN: Soft , no tenderness EXTREMITIES: No edema feet - Labs CBC & Chem 7: 09/17/23 14:10 09/17/23 14:10 Labs: Abnormal Lab Results - Last 24 Hours (Table) 09/19/23 Range/Units 01:50 CSF Total Protein 77 H (12-60) mg/dL Microbiology - Last 24 Hours (Table) 09/17/23 03:27 Urine Culture - Preliminary Urine,Voided 09/17/23 14:10 Blood Culture - Preliminary Blood Assessment and Plan (1) Encephalopathy acute Current Visit: Yes Status: Acute Code(s): G93.40 - ENCEPHALOPATHY, UNSPECIFIED SNOMED Code(s): 73956758 Plan: 1patient does not hospital mental status changes likely multifactorial patient did have a seizure activity has been new for him also noticed to have elevated blood pressure concern for possible hypertensive encephalopathy question of encephalitis less likely as the patient not running fever did have mild elevated white count yesterday has normalized subsequently however not entirely excluded, patient did have LP completed only 1 WBC glucose normal protein only 77 not behaving as meningitis or encephalitis, patient also have abnormal MRI with ischemic changes could be responsible for his mental status changes we will go ahead and discontinue acyclovir neurology is following the patient closely Dictation was produced using [employer] dictation software. please excuse any grammatical, word or spelling errors. Time with Patient: Less than 30
[2023-09-19] MEDS: FUROSEMIDE 10 MG/ML 2 ML VIAL IV ONE (23:02)
[2023-09-19] MEDS: IPRATROPIUM-ALBUTEROL 3 ML NEB INHALATION PRN (23:25)
[2023-09-20 06:50] LABS: Basophils % (A) 0 %; Eosinophils % (A) 0 %; HCT 44.7 % (39.0-53.0); HGB 15.4 gm/dL (13.0-17.5); Lymphocytes # (A) 0.8 k/uL (1.0-4.8); Lymphocytes % (A) 7 %; MCH 33.9 pg (25.0-35.0); MCHC 34.4 g/dL (31.0-37.0); MCV 98.6 fL (80.0-100.0); Mean Platelet Volume 9.8; Monocytes # (A) 0.8 k/uL (0-1.0); Monocytes % (A) 6 %; Neutrophils # (A) 10.5 k/uL (1.3-7.7); Neutrophils % (A) 86 %; Platelet Count 202 k/uL (150-450); RBC 4.54 m/uL (4.30-5.90); RDW 13.7 % (11.5-15.5); WBC 12.2 k/uL (3.8-10.6)
[2023-09-20 07:01] LABS: ALT 26 U/L (4-49); AST 44 U/L (17-59); African American GFR (CKD) 60 (>60 ml/min/1.73 sqM); Albumin/Globulin Ratio 1.2; Alkaline Phosphatase 67 U/L (38-126); Anion Gap 14 mmol/L; Blood Urea Nitrogen 25 mg/dL (9-20); Calcium 9.9 mg/dL (8.4-10.2); Carbon Dioxide 21 mmol/L (22-30); Chloride 113 mmol/L (98-107); Globulin 3.4 g/dL; Glucose 126 mg/dL (74-99); Non-African American GFR(CKD) 52 (>60 ml/min/1.73 sqM); Potassium 3.2 mmol/L (3.5-5.1); Sodium 148 mmol/L (137-145); Total Bilirubin 1.2 mg/dL (0.2-1.3); Total Protein 7.4 g/dL (6.3-8.2)
--- NOTE | 2023-09-20 07:47 | XR ---
EXAMINATION TYPE: XR chest 1V portable DATE OF EXAM: 09/20/2023 COMPARISON: 09/15/2023 INDICATION: Fluid overload TECHNIQUE: Single frontal view of the chest is obtained. FINDINGS: The heart size is normal. The pulmonary vasculature is normal. Mild infrahilar infiltrates are present. Correlate for pulmonary edema, atelectasis, or pneumonia. Fo llow-up can be performed. IMPRESSION: 1. Bilateral infrahilar infiltrates. Follow-up can be performed.
[2023-09-20] MEDS ORDERED: Potassium Replacement Protocol 1 EACH MISC MISCELLANE PRN (08:00)
[2023-09-20 08:04] LABS: Glucose,Whole Blood 131 mg/dL (70-110)
[2023-09-20] MEDS: PIPERACILLIN-TAZOBACTAM 3.375 GM in SODIUM CHLORIDE 0.9% 100 ML IVPB SCH (09:21)
--- NOTE | 2023-09-20 09:45 | P.PN ---
Subjective Progress Note Date: 09/20/23 This is a 68-year-old male patient of Dr. Solis who presented to the ERWith concerns of altered mental status changes. According to at bedside Patient was found driving around confused EMS was called and upon exam patient was having difficulty following basic commands but was able to move all 4 ex tremities.According to upon arrival to ER patient did have witnessed seizure. Patient does not have a history of seizure and no other significant medical history except nicotine dependence. Patient does drink a couple beers a night according to patient has not drink a lot over the past month. Patient was treated for vertigo approximately 1 month ago But no other significant history noted. No recent change to diet or medication. Head CT was completed showing no acute intracranial process. Nonspecific white matter changes likely secondary to chronic small vessel ischemic disease.CT angiogram completed showing no evidence of dissection of the cervical internal carotid arteries or vertebral arteries are any evidence of significant stenosis of the carotid bifurcations. No evidence of intracranial high-grade stenosis or intracranial aneurysm.Chest x-ray completed showing no acute cardiopulmonary disease no changes.At this time patient remains confused does not follow commands. Patient was started on Keppra per ER. At this time neurology service is consulted. MRI of the brain and EEG has been ordered. 2-D echocardiogram ordered. Repeat labs ordered. PT OT and speech service is consulted. Current vital signs temp 98.3, heart rate 83, respiratory rate 18, blood pressure 148/92 with pulse ox 97%. on 09/17/2023 patient was seen and examined he remains in the ER awaiting bed availability, patient mental status remains abnormal he is still confused and slightly agitated, at this time infectious disease consultation was requested in regard to possible acute encephalitis, patient was started on IV acyclovir, he was also started on IV ceftriaxone for urinary tract infection, neurology, critical care, and infectious disease consult are following, consult for and his Tesio was initiated for lumbar puncture On 09/18/2023 patient is currently resting in bed appears more calm than yesterday per family at bedside. Patient was started on acyclovir and Rocephin. Infectious disease, critical care neurology services are Consulted. Possible plans for lumbar puncture. Current vital signs temp 97.8, heart rate 96, blood pressure 142/83 with pulse ox 99% on room air On 09/19/2023 patient was seen and examined on the medical floor he is currently resting in bed appears more calm than yesterday per family at bedside. he is answering a few questions appropriately. Patient was started on acyclovir and Rocephin. Infectious disease, critical care neurology services are Consulted. lumbar puncture done and results reviewed, no evidence of bacterial infection, awaiting results on her face antibodies, MRI was done and reveals an area of acute stroke, patient was seen and examined by neurology, he is improving gradually. on 09/20/2023 patient was seen and examined on the medical floor, he is alert responsive in no apparent distress, he is answering a few questions appropriately, through the night patient had worsening respiratory status with decreasing O2 sat duration, chest x-ray revealed bilateral infiltrate, patient is Now on strict nothing by mouth, he is maintained on IV fluid, IV Rocephin was discontinued and he was started on IV Zosyn for possible aspiration pneumonia, mental the patient is improving he is still significantly confused, pulmonary critical care, infectious disease and neurology are following. Objective - Vital Signs Vital signs: Vital Signs Temp 98.9 F 09/20/23 07:06 Pulse 110 H 09/20/23 07:06 Resp 18 09/20/23 07:06 BP 160/84 09/20/23 07:06 Pulse Ox 94 L 09/20/23 07:06 FiO2 50 09/20/23 05:48 Intake & Output 09/19/23 09/20/23 09/20/23 18:59 06:59 18:59 Intake Total 750 375 Balance 750 375 Intake: Intake, IV Titration 750 375 Amount Sodium Chloride 0.9% 1, 750 375 000 ml @ 125 mls/hr IV . Q8H [facility] Rx#:[id number] Other: Voiding Method Diaper Diaper Incontinent Incontinent # Voids 3 - Exam in general patient is alert responsive confused in no apparent distress Head normocephalicand atraumatic Neck suppleno JVD no goiter Lungs clear to auscultation bilaterally no wheezing or crackles Heart regular rate and rhythm S1-S2, no rub or gallop Abdomen is soft nontender nondistended positive bowel sounds no hepatosplenomega ly Extremities no edema Neuro alert and orientated to 0.. Patient is confused and not following com mands - Labs CBC & Chem 7: 09/20/23 06:19 09/20/23 06:19 Labs: Abnormal Lab Results - Last 24 Hours (Table) 09/20/23 09/20/23 09/20/23 Range/Units 06:19 06:19 08:02 WBC 12.2 H (3.8-10.6) k/uL Neutrophils # 10.5 H (1.3-7.7) k/uL Lymphocytes # 0.8 L (1.0-4.8) k/uL Sodium 148 H (137-145) mmol/L Potassium 3.2 L (3.5-5.1) mmol/L Chloride 113 H (98-107) mmol/L Carbon Dioxide 21 L (22-30) mmol/L BUN 25 H (9-20) mg/dL Creatinine 1.38 H (0.66-1.25) mg/dL Glucose 126 H (74-99) mg/dL POC Glucose (mg/dL) 131 H (70-110) mg/dL Microbiology - Last 24 Hours (Table) 09/19/23 01:50 CSF Gram Stain - Preliminary Cerebral Spinal Fluid CSF Culture - Preliminary 09/17/23 03:27 Urine Culture - Final Urine,Voided Staphylococcus epidermidis 09/17/23 14:10 Blood Culture - Preliminary Blood Assessment and Plan Assessment: 1. Altered mental status changes possibly secondary to stroke and/or seizure, today patient's condition has not improved, infectious disease consultation was requested, patient was started on IV acyclovir empirically, consultation for and his Tesio was initiated for a LP 2. Witnessed seizure in ER patient was started on Keppra 3. Episode of vertigo approximately 1 month ago 4. Nicotine dependence At this time patient will be admitted Neurology services consulted MRI EEG and 2-D echo has been ordered Continue seizure precautions Repeat labs ordered Normal saline at 100 ordered PT OT and speech service is consulted
[2023-09-20] MEDS: POTASSIUM CHLORIDE 10 MEQ in WATER FOR INJECTION 1 100ML.BAG IVPB SCH (10:09)
[2023-09-20] MEDS: SODIUM CHLORIDE 0.45% 1,000 ML IV SCH (10:09)
--- NOTE | 2023-09-20 12:53 | P.PN ---
Subjective Progress Note Date: 09/20/23 I am following-up with patient and he is accompanied with his girlfriend and family members who stated he was more conversive earlier today and was normal but is having waxing and waning. He is less agitated and restless today. Objective - Vital Signs Vital signs: Vital Signs Temp 98.9 F 09/20/23 07:06 Pulse 110 H 09/20/23 07:06 Resp 18 09/20/23 07:06 BP 160/84 09/20/23 07:06 Pulse Ox 94 L 09/20/23 07:06 FiO2 50 09/20/23 05:48 Intake & Output 09/19/23 09/20/23 09/20/23 18:59 06:59 18:59 Intake Total 750 375 Output Total 100 Balance 750 375 -100 Intake: Intake, IV Titration 750 375 Amount Sodium Chloride 0.9% 1, 750 375 000 ml @ 125 mls/hr IV . Q8H [facility] Rx#:[id number] Output: Urine 100 Other: Voiding Method Diaper Diaper Diaper Incontinent Incontinent Incontinent # Voids 3 - Exam General: Lying in bed. Neuro: Deferred per family wishes since he was restless overnight and currently sle eping Some of the workup during this hospital visit consisted of: Temp 97.7F Presentation patient blood pressure is 205/125 which is improving. White blood cell on presentation 7.1 then next day is 12.7K and again is 10.2. MCV is 100.1 Sodium most recent is 137, glucose is 118, calcium is 8.8, magnesium is 1.8, AST ALT is within normal limits Lipid panel: TG 69, cholestrol is 209, LDL 141 and HDL 53 Ammonia level is 28 Lipid panel is triglyceride of 69, cholesterol 209, LDL is 141 and HDL 53. Urine tox screen is nondetected in the serum alcohol is less than 10 2D echo: Moderate increased left ventricular wall thickness. Ejection fraction [address] head is reported as no acute intracranial process. Nonspecific white matter changes. Personally reviewed the CT of the head and agree with the report. CTA head and neck is reported as no evidence of dissection or cervical internal carotid artery or vertebral artery or any evidence of significant stenosis at the carotid bifurcation. No evidence of intracranial high-grade stenosis or intracranial aneurysm. Routine EEG is normal. Repeat CT head is no significant abnormality seen. There is no acute bleed or mass effect. CSF study: clear, colorless, rbc 3, nucltead cell is 1, glucose 59 and protein is 77 MRI Brain showed acute ischemic type changes within the left trilobar deep white matter. Examination limitation due to motion artifact. I personally reviewed MRI and he had a hyperintense lesion on left occipital/parietal lesion and with ADC had target lesion, and on DWI had focal lesion on bilateral thalamus right >left. - Labs CBC & Chem 7: 09/20/23 06:19 09/20/23 06:19 Labs: Abnormal Lab Results - Last 24 Hours (Table) 09/20/23 09/20/23 09/20/23 Range/Units 06:19 06:19 08:02 WBC 12.2 H (3.8-10.6) k/uL Neutrophils # 10.5 H (1.3-7.7) k/uL Lymphocytes # 0.8 L (1.0-4.8) k/uL Sodium 148 H (137-145) mmol/L Potassium 3.2 L (3.5-5.1) mmol/L Chloride 113 H (98-107) mmol/L Carbon Dioxide 21 L (22-30) mmol/L BUN 25 H (9-20) mg/dL Creatinine 1.38 H (0.66-1.25) mg/dL Glucose 126 H (74-99) mg/dL POC Glucose (mg/dL) 131 H (70-110) mg/dL Microbiology - Last 24 Hours (Table) 09/19/23 01:50 CSF Gram Stain - Preliminary Cerebral Spinal Fluid CSF Culture - Preliminary 09/17/23 03:27 Urine Culture - Final Urine,Voided Staphylococcus epidermidis 09/17/23 14:10 Blood Culture - Preliminary Blood Assessment and Plan Assessment: This is a 68-year-old gentleman who presents because of altered mental status. Girlfriend seems the patient was confused and drove into the [employer] garden and was babbling. AED appears he has left upper extremity weakness neglect in the left arm. While in the ED he had seizure-like activity. He was given Ativan as well as Keppra loading dose. He continues to be confused agitated and restless. Acute ischemic stroke (with reported left upper extremity weakness). MRI Showed stroke over the left trilobar region but I felt hyperintense lesion on left occipital/parietal lesion and with ADC had target lesion, and on DWI had focal lesion on bilateral thalamus right >left without ADC correlation concerning for bilateral hemispheric stroke that is hyperacute. New onset seizure reported by ED team. Possible due to above Routine EEG is normal. Delirium due to above. He is afebrile and normal wbc. CSF study is unremarkable for CSF infection (nucleated cell is 1). Hypertensive urgency Tobacco use Does not appear the patient follows up with the PCP or address his medical issues per girlfriend Plan: I will reach out to [place] radiologist for second opinion especially with motion artifact. He is on aspirin 325 daily and Lipitor 40 mg nightly for secondary stroke prophylaxis Will consider DEB if possible down the line once he is more cooperative. Patient was initially started on Keppra 500mg bid but discontinued because agitation and restless and instead started Vimpat 50mg bid on 09/17/2023. I.D. team started him on Acyclovir and Acylovir is discontinued since CSF study is unremarkable. Continue neurochecks Cardiac monitoring PT OT and ONCOLOGY PHYSICIAN ASSISTANT are consulted On Haldol PRN and Seroquel 25 mg nightly for his agitation. Will defer the rest of the medical management to primary and other specialists For DVT prophylaxis the patient is on Lovenox The plan is discussed with his girlfriend, and other family members (sisters). Addendum: I spoke with [place] Radiologist (Dr. Schuler) who initially reported as trilobar on the left but he felt he might have mislabeled it and think it is left occipital/parietal and agree there is bilateral hyperintense on bilateral thalamus (right > left). Time with Patient: Less than 30
--- NOTE | 2023-09-20 15:08 | P.PN ---
Subjective Progress Note Date: 09/20/23 Patient is a 68-year-old white male with unknown past medical history. Patient is currently aphasic and unable to provide any information. Apparently, patient was noted to be acting abnormal by his neighbor earlier yesterday afternoon. He reportedly had left arm weakness/neglect. Unknown last well time. Patient was brought into the emergency room by EMS 09/15/2023. While in the emergency room, he did reportedly have seizure-like activity, which was terminated with 1 mg of Ativan. He was also loaded with 1500 mg of Keppra and started on Keppra 500 mg twice a day[address] of the brain did not show any acute intracranial process. No intracranial hemorrhage or mass effect. Brain CTA of head and neck did not show evidence of dissection of the cervical internal carotid arteries or vertebral arteries or any evidence of significant stenosis at the carotid bifurcations. No evidence of intracranial high-grade stenosis or intracranial aneurysm. No reported fevers. Urine toxicology screen negative. Serum alcohol less than 10. On my evaluation, the patient is alert. He is completely aphasic. No facial asymmetry. He will track me with his eyes around the bed. He does not follow commands. He is moving all 4 extremities. No observable hemiparesis/plegia. No noted seizure-like activity. Earlier he was reportedly restless and agitated. Given one time dose of Geodon and started on Seroquel. Blood pressure is hypertensive, recorded as high as 205/125. As needed hydralazine was added, and blood pressures improved to 165/82. EKG done on arrival consistent with sinus tachycardia. No obvious acute ischemic changes. Most recent CBC from yesterday: WBC count 12.7, hemoglobin 13.9, hematocrit 43.5, platelets 170. BMP from admission: Sodium 137, potassium 4.2, chloride 106, serum bicarb 21, BUN 18, creatinine 1.14, glucose 118. LFTs not elevated. Troponins 0.015 and 0.027 respectively. We were consulted for ICU evaluation. Patient does not necessarily need ICU management at this time. No further seizure activity. hemodynamically is stable. Follow-up brain MRI pending. Patient started on aspirin and statin. Prognosis is certainly guarded. On today's evaluation of 09/18/2023, the patient is being seen for a follow-up. The patient seems to be much more comfortable and calm on today's evaluation is resting comfortably in bed. He remains on a combination of Rocephin and acyclovir. The plan is to proceed with a lumbar puncture this will be done by the seizure today. ID and urology are both on the case. He is on room air oxygen with a pulse ox of 99%. Rest of the blood work shows a WBC of 10.2 with a hemoglobin 15.4 and this was done yesterday. Electrolytes are all stable.EEG showed no significant abnormalities. No evidence of any epileptic foci.. On 09/19/2023, the patient is being seen for regular follow-up. He is able to communicate and answer a few questions although is still confused. Lumbar puncture was done and there is some mild elevation of the CSF protein at 77. The nucleated white cells are only at 1. No evidence of any RBCs in the CSF and MRI of the brain was completed and it showed an elevated of an ischemic stroke left parietal lobe deep white matter. No seizure activity has been noted. Neurology on the case. ID is on the case. He remains afebrile and hemodynamically stable. Pulse ox is 94% room air oxygen. 09/20/2023, the patient is being seen for a follow-up. Neurologically, the patient remains confused although he has been noted to be slightly more conservative. His overall mental status continues to wax and wane. Seems to be less restless and agitated on today's evaluation. Nevertheless, the patient developed ischemia. His oxygen requirements steadily went up and the patient is currently utilizing 15 L Ventimask with an FiO2 of 50%. Reviewed the chest x- ray from today and the patient has bilateral perihilar pulm infiltrates and possibility of underlying aspiration pneumonia cannot be completely ruled out. The patient was accordingly started on IV Zosyn. He is n.p.o. for now. IV fluids in the form of half-normal saline that is running at the rate of 100 cc an hour. White cell count of 12 with a hemoglobin 15.4 and a platelet count of 202. Sodium levels at 148, BUN is 25 with a creatinine of 1.38 and a bicarb level is at 21. IV acyclovir has been discontinued. IV Rocephin has been disc ontinued and the patient was started on IV Zosyn. Objective - Vital Signs Vital signs: Vital Signs Temp 98.9 F 09/20/23 07:06 Pulse 110 H 09/20/23 07:06 Resp 18 09/20/23 07:06 BP 160/84 09/20/23 07:06 Pulse Ox 94 L 09/20/23 07:06 FiO2 50 09/20/23 05:48 Intake & Output 09/19/23 09/20/23 09/20/23 18:59 06:59 18:59 Intake Total 750 375 Output Total 100 Balance 750 375 -100 Intake: Intake, IV Titration 750 375 Amount Sodium Chloride 0.9% 1, 750 375 000 ml @ 125 mls/hr IV . Q8H [facility] Rx#:[id number] Output: Urine 100 Other: Voiding Method Diaper Diaper Diaper Incontinent Incontinent Incontinent # Voids 3 - Exam GENERAL EXAM: Alert, 68-year-old white male, much more comfortable compared to yesterday and resting comfortably in bed. Remains confused and altered. Currently on room air oxygen. HEAD: Normocephalic and atraumatic EYES: Normal reaction of pupils, equal size. NOSE: Clear with pink turbinates. THROAT: No erythema or exudates. NECK: No masses, no JVD. No nuchal rigidity. CHEST: No chest wall deformity. LUNGS: Equal air entry with no crackles, wheeze, rhonchi or dullness. No accessory muscle use. CVS: S1 and S2 normal with no audible murmur, regular rhythm. No extra heart sounds ABDOMEN: No hepatosplenomegaly, active bowel sounds, no guarding or rigidity. SPINE: No scoliosis or deformity SKIN: No rashes CENTRAL NERVOUS SYSTEM: Patient remains confused, yet able to communicate current level of alertness is improved since admission. EXTREMITIES: There is no peripheral edema or cyanosis. Significant digital clubbing. Peripheral pulses are intact. - Labs CBC & Chem 7: 09/20/23 06:19 09/20/23 06:19 Labs: Abnormal Lab Results - Last 24 Hours (Table) 09/20/23 09/20/23 09/20/23 Range/Units 06:19 06:19 08:02 WBC 12.2 H (3.8-10.6) k/uL Neutrophils # 10.5 H (1.3-7.7) k/uL Lymphocytes # 0.8 L (1.0-4.8) k/uL Sodium 148 H (137-145) mmol/L Potassium 3.2 L (3.5-5.1) mmol/L Chloride 113 H (98-107) mmol/L Carbon Dioxide 21 L (22-30) mmol/L BUN 25 H (9-20) mg/dL Creatinine 1.38 H (0.66-1.25) mg/dL Glucose 126 H (74-99) mg/dL POC Glucose (mg/dL) 131 H (70-110) mg/dL Microbiology - Last 24 Hours (Table) 09/19/23 01:50 CSF Gram Stain - Preliminary Cerebral Spinal Fluid CSF Culture - Preliminary 09/17/23 03:27 Urine Culture - Final Urine,Voided Staphylococcus epidermidis 09/17/23 14:10 Blood Culture - Preliminary Blood Assessment and Plan Assessment: Altered mental status, currently under investigation, CT of the brain did not show any acute intracranial process. No intracranial hemorrhage or mass effect. Brain CTA of head and neck did not show evidence of dissection of the cervical internal carotid arteries or vertebral arteries or any evidence of significant stenosis at the carotid bifurcations. No evidence of intracranial high-grade stenosis or intracranial aneurysm. No fevers. Toxicology screen negative. The lumbar puncture showed some mild elevation of the protein without any nucleated RBCs or evidence of bleeding. Culture is still pending for now. MRI of the brain shows a left deep white matter trilobar infarct. Mental status has not recovered and the patient continues to have waxing and waning mentation although seems to be more conservative and less agitated on today's evaluation. Seizure, possibly new onset, terminated with 1 mg Ativan, patient also loaded with 1500 mg of Keppra and started on Keppra 500 mg twice a day. Follow-up EEG does not show any epileptiform discharge/seizure or focal slowing. The patient is currently on Vimpat. Aphasia/dysphasia Acute hypoxemic respiratory failure, currently on 50% Ventimask and has a well- padded by the pulm infiltrates, rule out aspiration pneumonia Hypertensive urgency, improved with as needed hydralazine Hyperlipidemia Suspect underlying chronic obstructive pulmonary disease, does not appear in exacerbation Chronic tobacco dependence reported Plan: Neurologic status is stable and level alertness seems to have improved slightly. EEG was noted and there is no ongoing seizure activity the patient is currently on Vimpat Lumbar puncture was negative for any infection with encephalitis Antibiotics as a modified to IV Zosyn Keep the patient n.p.o. Aspiration precautions MRI of the brain was noted Neurology consult ID consult Currently comfortable on room air oxygen. No aspiration. No signs of any respiratory insufficiency or distress Afebrile hemodynamic stable No seizure activity Will continue to follow
--- NOTE | 2023-09-21 09:39 | P.PN ---
Subjective Progress Note Date: 09/21/23 This is a 68-year-old male patient of Dr. Solis who presented to the ERWith concerns of altered mental status changes. According to at bedside Patient was found driving around confused EMS was called and upon exam patient was having difficulty following basic commands but was able to move all 4 ex tremities.According to upon arrival to ER patient did have witnessed seizure. Patient does not have a history of seizure and no other significant medical history except nicotine dependence. Patient does drink a couple beers a night according to patient has not drink a lot over the past month. Patient was treated for vertigo approximately 1 month ago But no other significant history noted. No recent change to diet or medication. Head CT was completed showing no acute intracranial process. Nonspecific white matter changes likely secondary to chronic small vessel ischemic disease.CT angiogram completed showing no evidence of dissection of the cervical internal carotid arteries or vertebral arteries are any evidence of significant stenosis of the carotid bifurcations. No evidence of intracranial high-grade stenosis or intracranial aneurysm.Chest x-ray completed showing no acute cardiopulmonary disease no changes.At this time patient remains confused does not follow commands. Patient was started on Keppra per ER. At this time neurology service is consulted. MRI of the brain and EEG has been ordered. 2-D echocardiogram ordered. Repeat labs ordered. PT OT and speech service is consulted. Current vital signs temp 98.3, heart rate 83, respiratory rate 18, blood pressure 148/92 with pulse ox 97%. on 09/17/2023 patient was seen and examined he remains in the ER awaiting bed availability, patient mental status remains abnormal he is still confused and slightly agitated, at this time infectious disease consultation was requested in regard to possible acute encephalitis, patient was started on IV acyclovir, he was also started on IV ceftriaxone for urinary tract infection, neurology, critical care, and infectious disease consult are following, consult for and his Tesio was initiated for lumbar puncture On 09/18/2023 patient is currently resting in bed appears more calm than yesterday per family at bedside. Patient was started on acyclovir and Rocephin. Infectious disease, critical care neurology services are Consulted. Possible plans for lumbar puncture. Current vital signs temp 97.8, heart rate 96, blood pressure 142/83 with pulse ox 99% on room air On 09/19/2023 patient was seen and examined on the medical floor he is currently resting in bed appears more calm than yesterday per family at bedside. he is answering a few questions appropriately. Patient was started on acyclovir and Rocephin. Infectious disease, critical care neurology services are Consulted. lumbar puncture done and results reviewed, no evidence of bacterial infection, awaiting results on her face antibodies, MRI was done and reveals an area of acute stroke, patient was seen and examined by neurology, he is improving gradually. on 09/20/2023 patient was seen and examined on the medical floor, he is alert responsive in no apparent distress, he is answering a few questions appropriately, through the night patient had worsening respiratory status with decreasing O2 sat duration, chest x-ray revealed bilateral infiltrate, patient is Now on strict nothing by mouth, he is maintained on IV fluid, IV Rocephin was discontinued and he was started on IV Zosyn for possible aspiration pneumonia, mental the patient is improving he is still significantly confused, pulmonary critical care, infectious disease and neurology are following. on 09/21/2023 patient was seen and examined on the medical floor, he is more alert and responsive today, he is sitting up in a chair, he is still maintained on oxygen via facial mask FiO2 of 50%, he is complaining of cough with sputum production, he is having generalized tremor, otherwise he denies any complaints there is no fever or chills no headache or dizziness no chest pain no shortness of breath no nausea or vomiting no abdominal pain no diarrhea no blood in the stools no burning with urination no frequency or urgency no hematuria, input from pulmonary and neurology reviewed. Objective - Vital Signs Vital signs: Vital Signs Temp 97.9 F 09/21/23 07:02 Pulse 101 H 09/21/23 07:02 Resp 96 H 09/21/23 07:02 BP 163/88 09/21/23 07:02 Pulse Ox 96 09/21/23 07:02 FiO2 50 09/21/23 08:07 Intake & Output 09/20/23 09/21/23 09/21/23 18:59 06:59 18:59 Intake Total 1300 Output Total 100 Balance -100 1300 Weight 86.183 kg Intake: Intake, IV Titration 1300 Amount Piperacillin-Tazobactam 3 100 .375 gm In Sodium Chloride 0.9% 100 ml @ 25 mls/hr IVPB Q8HR [facility] Rx# :[id number] Sodium Chloride 0.45% 1, 1200 000 ml @ 100 mls/hr IV . Q10H [facility] Rx#:[id number] Oral 0 Output: Urine 100 Other: Voiding Method Diaper Diaper Incontinent Incontinent # Voids 2 - Exam in general patient is alert responsive confused in no apparent distress Head normocephalic and atraumatic Neck suppleno JVD no goiter Lungs clear to auscultation bilaterally no wheezing or crackles Heart regular rate and rhythm S1-S2, no rub or gallop Abdomen is soft nontender nondistended positive bowel sounds no hepatosplenomegaly Extremities no edema Neuro alert and orientated to 0.. Patient is confused and not following commands - Labs CBC & Chem 7: 09/20/23 06:19 09/21/23 07:55 Labs: Microbiology - Last 24 Hours (Table) 09/19/23 01:50 CSF Gram Stain - Preliminary Cerebral Spinal Fluid CSF Culture - Preliminary 09/17/23 14:10 Blood Culture - Preliminary Blood 09/17/23 03:27 Urine Culture - Final Urine,Voided Staphylococcus epidermidis Assessment and Plan Assessment: 1. Altered mental status changes possibly secondary to stroke and/or seizure, today patient's condition has not improved, infectious disease consultation was requested, patient was started on IV acyclovir empirically, consultation for and his Tesio was initiated for a LP 2. Witnessed seizure in ER patient was started on Keppra 3. Episode of vertigo approximately 1 month ago 4. Nicotine dependence At this time patient will be admitted Neurology services consulted MRI EEG and 2-D echo has been ordered Continue seizure precautions Repeat labs ordered Normal saline at 100 ordered PT OT and speech service is consulted
[2023-09-21] MEDS: POTASSIUM CHLORIDE 10 MEQ in WATER FOR INJECTION 1 100ML.BAG IVPB SCH (13:07)
--- NOTE | 2023-09-21 14:37 | P.PN ---
Subjective Progress Note Date: 09/21/23 I am following-up with patient and he is accompanied with his sister and girlfriend and they state they are drastically better today. He feels he is doing better. Objective - Vital Signs Vital signs: Vital Signs Temp 98.2 F 09/21/23 12:36 Pulse 115 H 09/21/23 12:36 Resp 18 09/21/23 12:36 BP 144/86 09/21/23 12:36 Pulse Ox 97 09/21/23 12:36 FiO2 50 09/21/23 08:07 Intake & Output 09/20/23 09/21/23 09/21/23 18:59 06:59 18:59 Intake Total 1300 Output Total 100 Balance -100 1300 Weight 86.183 kg Intake: Intake, IV Titration 1300 Amount Piperacillin-Tazobactam 3 100 .375 gm In Sodium Chloride 0.9% 100 ml @ 25 mls/hr IVPB Q8HR [facility] Rx# :[id number] Sodium Chloride 0.45% 1, 1200 000 ml @ 100 mls/hr IV . Q10H [facility] Rx#:[id number] Oral 0 Output: Urine 100 Other: Voiding Method Diaper Diaper Diaper Incontinent Incontinent Incontinent # Voids 2 1 - Exam General: Sitting in a recliner chair and is not in acute distress. Neuro: The patient is drowsy and is awakeable to voice. Is oriented to self. Correctly he was in the hospital. Correctly stated the time with multiple questioning. Correctly stated the current state, capital [place], and [place] Is following simple commands. Language is limited but does not appear aphasic. Pupils are round, equal and reactive to light. No facial weakness. No dysarthria. 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 Some of the workup during this hospital visit consisted of: Temp 97.7F Presentation patient blood pressure is 205/125 which is improving. White blood cell on presentation 7.1 then next day is 12.7K and again is 10.2. MCV is 100.1 Sodium most recent is 137, glucose is 118, calcium is 8.8, magnesium is 1.8, AST ALT is within normal limits Lipid panel: TG 69, cholestrol is 209, LDL 141 and HDL 53 Ammonia level is 28 Lipid panel is triglyceride of 69, cholesterol 209, LDL is 141 and HDL 53. Urine tox screen is nondetected in the serum alcohol is less than 10 2D echo: Moderate increased left ventricular wall thickness. Ejection fraction [address] head is reported as no acute intracranial process. Nonspecific white matter changes. Personally reviewed the CT of the head and agree with the report. CTA head and neck is reported as no evidence of dissection or cervical internal carotid artery or vertebral artery or any evidence of significant stenosis at the carotid bifurcation. No evidence of intracranial high-grade stenosis or intracranial aneurysm. Routine EEG is normal. Repeat CT head is no significant abnormality seen. There is no acute bleed or mass effect. CSF study: clear, colorless, rbc 3, nucltead cell is 1, glucose 59 and protein is 77 MRI Brain showed acute ischemic type changes within the left trilobar deep white matter. Examination limitation due to motion artifact. I personally reviewed MRI and he had a hyperintense lesion on left occipital/parietal lesion and with ADC had target lesion, and on DWI had focal lesion on bilateral thalamus right >left. - Labs CBC & Chem 7: 09/20/23 06:19 09/21/23 07:55 Labs: Microbiology - Last 24 Hours (Table) 09/19/23 01:50 CSF Gram Stain - Preliminary Cerebral Spinal Fluid CSF Culture - Preliminary 09/17/23 14:10 Blood Culture - Preliminary Blood Assessment and Plan Assessment: This is a 68-year-old gentleman who presents because of altered mental status. Girlfriend seems the patient was confused and drove into the [employer] garden and was babbling. AED appears he has left upper extremity weakness neglect in the left arm. While in the ED he had seizure-like activity. He was given Ativan as well as Keppra loading dose. He continues to be confused agitated and restless. Acute ischemic stroke (with reported left upper extremity weakness). MRI Showed stroke over the left trilobar region but I felt hyperintense lesion on left occipital/parietal lesion and with ADC had target lesion, and on DWI had focal lesion on bilateral thalamus right >left without ADC correlation concerning for bilateral hemispheric stroke that is hyperacute. New onset seizure reported by ED team. Possible due to above Routine EEG is normal. Delirium due to above. He is afebrile and normal wbc. CSF study is unremarkable for CSF infection (nucleated cell is 1). Hypertensive urgency Tobacco use Does not appear the patient follows up with the PCP or address his medical issues per girlfriend Plan: I spoke with reading Radiologist (Dr. Schuler) who initially reported as t rilobar on the left but he felt he might have mislabeled it and think it is left occipital/parietal and agree there is bilateral hyperintense on bilateral thalamus (right > left). He is on aspirin 325 daily and today started on Plavix 75mg daily (prior to this was not on antiplateletes). Continue Lipitor 40 mg nightly for secondary stroke prophylaxis Consulted cardiology for DEB. I will get repeat MRI since first one has some motion artifact. Patient was initially started on Keppra 500mg bid but discontinued because agitation and restless and instead started Vimpat 50mg bid on 09/17/2023. I.D. team started him on Acyclovir and Acylovir is discontinued since CSF study is unremarkable. Continue neurochecks Cardiac monitoring PT OT and UNDERWE[employer] HEMMER are consulted. Recommnd 30 day event monitor. On Haldol PRN and Seroquel 25 mg nightly for his agitation. Will defer the rest of the medical management to primary and other specialists For DVT prophylaxis the patient is on Lovenox The plan is discussed with his girlfriend, and other family members (sister). Dr. Leigh will resume neurology ervice tomorrow A.M. Time with Patient: Less than 30
[2023-09-21] MEDS: CLOPIDOGREL 75 MG TAB PO SCH (15:20)
--- NOTE | 2023-09-21 16:41 | P.PN ---
Subjective Progress Note Date: 09/21/23 Patient is a 68-year-old white male with unknown past medical history. Patient is currently aphasic and unable to provide any information. Apparently, patient was noted to be acting abnormal by his neighbor earlier yesterday afternoon. He reportedly had left arm weakness/neglect. Unknown last well time. Patient was brought into the emergency room by EMS 09/15/2023. While in the emergency room, he did reportedly have seizure-like activity, which was terminated with 1 mg of Ativan. He was also loaded with 1500 mg of Keppra and started on Keppra 500 mg twice a day[address] of the brain did not show any acute intracranial process. No intracranial hemorrhage or mass effect. Brain CTA of head and neck did not show evidence of dissection of the cervical internal carotid arteries or vertebral arteries or any evidence of significant stenosis at the carotid bifurcations. No evidence of intracranial high-grade stenosis or intracranial aneurysm. No reported fevers. Urine toxicology screen negative. Serum alcohol less than 10. On my evaluation, the patient is alert. He is completely aphasic. No facial asymmetry. He will track me with his eyes around the bed. He does not follow commands. He is moving all 4 extremities. No observable hemiparesis/plegia. No noted seizure-like activity. Earlier he was reportedly restless and agitated. Given one time dose of Geodon and started on Seroquel. Blood pressure is hypertensive, recorded as high as 205/125. As needed hydralazine was added, and blood pressures improved to 165/82. EKG done on arrival consistent with sinus tachycardia. No obvious acute ischemic changes. Most recent CBC from yesterday: WBC count 12.7, hemoglobin 13.9, hematocrit 43.5, platelets 170. BMP from admission: Sodium 137, potassium 4.2, chloride 106, serum bicarb 21, BUN 18, creatinine 1.14, glucose 118. LFTs not elevated. Troponins 0.015 and 0.027 respectively. We were consulted for ICU evaluation. Patient does not necessarily need ICU management at this time. No further seizure activity. hemodynamically is stable. Follow-up brain MRI pending. Patient started on aspirin and statin. Prognosis is certainly guarded. On today's evaluation of 09/18/2023, the patient is being seen for a follow-up. The patient seems to be much more comfortable and calm on today's evaluation is resting comfortably in bed. He remains on a combination of Rocephin and acyclovir. The plan is to proceed with a lumbar puncture this will be done by the seizure today. ID and urology are both on the case. He is on room air oxygen with a pulse ox of 99%. Rest of the blood work shows a WBC of 10.2 with a hemoglobin 15.4 and this was done yesterday. Electrolytes are all stable.EEG showed no significant abnormalities. No evidence of any epileptic foci.. On 09/19/2023, the patient is being seen for regular follow-up. He is able to communicate and answer a few questions although is still confused. Lumbar puncture was done and there is some mild elevation of the CSF protein at 77. The nucleated white cells are only at 1. No evidence of any RBCs in the CSF and MRI of the brain was completed and it showed an elevated of an ischemic stroke left parietal lobe deep white matter. No seizure activity has been noted. Neurology on the case. ID is on the case. He remains afebrile and hemodynamically stable. Pulse ox is 94% room air oxygen. 09/20/2023, the patient is being seen for a follow-up. Neurologically, the patient remains confused although he has been noted to be slightly more conservative. His overall mental status continues to wax and wane. Seems to be less restless and agitated on today's evaluation. Nevertheless, the patient developed ischemia. His oxygen requirements steadily went up and the patient is currently utilizing 15 L Ventimask with an FiO2 of 50%. Reviewed the chest x- ray from today and the patient has bilateral perihilar pulm infiltrates and possibility of underlying aspiration pneumonia cannot be completely ruled out. The patient was accordingly started on IV Zosyn. He is n.p.o. for now. IV fluids in the form of half-normal saline that is running at the rate of 100 cc an hour. White cell count of 12 with a hemoglobin 15.4 and a platelet count of 202. Sodium levels at 148, BUN is 25 with a creatinine of 1.38 and a bicarb level is at 21. IV acyclovir has been discontinued. IV Rocephin has been disc ontinued and the patient was started on IV Zosyn. On 09/21/2023, the patient is being seen for a follow-up. The patient is improved significantly. He is feeling better. He is currently on 60s of oxygen by nasal cannula with a pulse ox of 97%. He remains on IV Zosyn. No focal neurological deficits. WBC count is at 12.2 with a hemoglobin 15.4. Electrolytes from yesterday were noted. The patient is afebrile. The consensus is that the patient could have had a stroke involving the left occipital parietal region and there is also hyperintensity on the bilateral thalamus a right more than left. The patient was kept on aspirin and Plavix neurology is considering to repeat the MRI. In terms of respiratory status, he continues to have some cough and congestion and sputum. Nevertheless that, the oxygenation is improved. Objective - Vital Signs Vital signs: Vital Signs Temp 98.2 F 09/21/23 12:36 Pulse 115 H 09/21/23 12:36 Resp 18 09/21/23 12:36 BP 144/86 09/21/23 12:36 Pulse Ox 97 09/21/23 12:36 FiO2 50 09/21/23 08:07 Intake & Output 09/20/23 09/21/23 09/21/23 18:59 06:59 18:59 Intake Total 1300 Output Total 100 Balance -100 1300 Weight 86.183 kg Intake: Intake, IV Titration 1300 Amount Piperacillin-Tazobactam 3 100 .375 gm In Sodium Chloride 0.9% 100 ml @ 25 mls/hr IVPB Q8HR [facility] Rx# :[id number] Sodium Chloride 0.45% 1, 1200 000 ml @ 100 mls/hr IV . Q10H [facility] Rx#:[id number] Oral 0 Output: Urine 100 Other: Voiding Method Diaper Diaper Diaper Incontinent Incontinent Incontinent # Voids 2 1 - Exam GENERAL EXAM: Alert, 68-year-old white male, much more comfortable compared to yesterday and resting comfortably in bed. Remains confused and altered. Currently on 6 L of oxygen nasal cannula HEAD: Normocephalic and atraumatic EYES: Normal reaction of pupils, equal size. NOSE: Clear with pink turbinates. THROAT: No erythema or exudates. NECK: No masses, no JVD. No nuchal rigidity. CHEST: No chest wall deformity. LUNGS: Equal air entry with no crackles, wheeze, rhonchi or dullness. No accessory muscle use. CVS: S1 and S2 normal with no audible murmur, regular rhythm. No extra heart sounds ABDOMEN: No hepatosplenomegaly, active bowel sounds, no guarding or rigidity. SPINE: No scoliosis or deformity SKIN: No rashes CENTRAL NERVOUS SYSTEM: Full mentation, no focal neurological deficits EXTREMITIES: There is no peripheral edema or cyanosis. Significant digital clubbing. Peripheral pulses are intact. - Labs CBC & Chem 7: 09/20/23 06:19 09/21/23 07:55 Labs: Microbiology - Last 24 Hours (Table) 09/19/23 01:50 CSF Gram Stain - Preliminary Cerebral Spinal Fluid CSF Culture - Preliminary 09/17/23 14:10 Blood Culture - Preliminary Blood Assessment and Plan Assessment: Altered mental status, currently under investigation, CT of the brain did not show any acute intracranial process. No intracranial hemorrhage or mass effect. Brain CTA of head and neck did not show evidence of dissection of the cervical internal carotid arteries or vertebral arteries or any evidence of significant stenosis at the carotid bifurcations. No evidence of intracranial high-grade stenosis or intracranial aneurysm. No fevers. Toxicology screen negative. The lumbar puncture showed some mild elevation of the protein without any nucleated RBCs or evidence of bleeding. MRI of the brain showed abnormalities in the thalamus along with the left occipital parietal region. The patient is cu rrently on aspirin and Plavix. Neurologically improving. Seizure, possibly new onset, terminated with 1 mg Ativan, patient also loaded with 1500 mg of Keppra and started on Keppra 500 mg twice a day. Follow-up EEG does not show any epileptiform discharge/seizure or focal slowing. The patient is currently on Vimpat. Aphasia/dysphasia Acute hypoxemic respiratory failure, currently on 6 L of oxygen nasal cannula, possible aspiration pneumonia IV Zosyn Hypertensive urgency, improved with as needed hydralazine Hyperlipidemia Suspect underlying chronic obstructive pulmonary disease, does not appear in exacerbation Chronic tobacco dependence reported Plan: Neurologic status improved consider repeating MRI of the brain Continue aspirin and Plavix EEG was noted and there is no ongoing seizure activity the patient is currently on Vimpat Lumbar puncture was negative for any infection with encephalitis Antibiotics with IV Zosyn Repeat chest x-ray in the morning Afebrile hemodynamic stable No seizure activity Will continue to follow
--- NOTE | 2023-09-21 17:13 | P.PN ---
Subjective Progress Note Date: 09/20/23 Principal diagnosis: Reason for follow-up is encephalitis questionable herpes Patient is a 68-year-old male who was brought into the hospital for evaluation of mental status changes, patient also have a seizure activity and did have a negative workup for CVA with increasing confusion concern for possible encephalitis prompting this consultation. On today's evaluation that is 09/20/2023, the patient continues to be afebrile, the patient noticed to have worsening of his respiratory status and is currently on the high flow oxygen patient remains to be lethargic no nausea vomiting or any other changes reported by the nursing staff Patient white count is 12.2, creatinine is 1.38 Objective - Vital Signs Vital signs: Vital Signs Temp 98.9 F 09/20/23 07:06 Pulse 110 H 09/20/23 07:06 Resp 18 09/20/23 07:06 BP 160/84 09/20/23 07:06 Pulse Ox 94 L 09/20/23 07:06 FiO2 50 09/20/23 05:48 Intake & Output 09/19/23 09/20/23 09/20/23 18:59 06:59 18:59 Intake Total 750 375 Balance 750 375 Intake: Intake, IV Titration 750 375 Amount Sodium Chloride 0.9% 1, 750 375 000 ml @ 125 mls/hr IV . Q8H [facility] Rx#:[id number] Other: Voiding Method Diaper Diaper Incontinent Incontinent # Voids 3 - Exam GENERAL DESCRIPTION: An elderly male lying in bed in no distress RESPIRATORY SYSTEM: Unlabored breathing , decreased breath sounds at bases HEART: S1 S2 regular rate and rhythm , ABDOMEN: Soft , no tenderness EXTREMITIES: No edema feet - Labs CBC & Chem 7: 09/20/23 06:19 09/21/23 07:55 Labs: Abnormal Lab Results - Last 24 Hours (Table) 09/20/23 09/20/23 09/20/23 Range/Units 06:19 06:19 08:02 WBC 12.2 H (3.8-10.6) k/uL Neutrophils # 10.5 H (1.3-7.7) k/uL Lymphocytes # 0.8 L (1.0-4.8) k/uL Sodium 148 H (137-145) mmol/L Potassium 3.2 L (3.5-5.1) mmol/L Chloride 113 H (98-107) mmol/L Carbon Dioxide 21 L (22-30) mmol/L BUN 25 H (9-20) mg/dL Creatinine 1.38 H (0.66-1.25) mg/dL Glucose 126 H (74-99) mg/dL POC Glucose (mg/dL) 131 H (70-110) mg/dL Microbiology - Last 24 Hours (Table) 09/17/23 03:27 Urine Culture - Final Urine,Voided Staphylococcus epidermidis 09/17/23 14:10 Blood Culture - Preliminary Blood 09/19/23 01:50 CSF Gram Stain - Preliminary Cerebral Spinal Fluid Assessment and Plan (1) Encephalopathy acute Current Visit: Yes Status: Acute Code(s): G93.40 - ENCEPHALOPATHY, UNSPECIFIED SNOMED Code(s): 19975746 (2) Aspiration pneumonia Current Visit: Yes Status: Acute Code(s): J69.0 - PNEUMONITIS DUE TO INHALATION OF FOOD AND VOMIT SNOMED Code(s): 626166912 Plan: 1patient does not hospital mental status changes likely multifactorial patient did have a seizure activity has been new for him also noticed to have elevated blood pressure concern for possible hypertensive encephalopathy question of encephalitis less likely as the patient not running fever did have mild elevated white count yesterday has normalized subsequently however not entirely excluded, patient did have LP completed only 1 WBC glucose normal protein only 77 not behaving as meningitis or encephalitis, patient also have abnormal MRI with ischemic changes could be responsible for his mental status changes, acyclovir was discontinued 2patient noticed to have worsening of his respiratory status and concerning for possible aspiration pneumonitis has been started on Zosyn to continue try to obtain a sputum. Multiple family members at bedside multiple question concern answered Dictation was produced using [employer] software. please excuse any grammatical, word or spelling errors.
--- NOTE | 2023-09-21 17:14 | P.PN ---
Subjective Progress Note Date: 09/21/23 Principal diagnosis: Reason for follow-up is encephalitis questionable herpes Patient is a 68-year-old male who was brought into the hospital for evaluation of mental status changes, patient also have a seizure activity and did have a negative workup for CVA with increasing confusion concern for possible encephalitis prompting this consultation. On today's evaluation that is 09/21/2023, Patient is more awake and alert today, he did have a low-grade fever 100.2 F last and however the patient is afebrile this morning, patient is currently on 6 L nasal cannula and denies having any shortness of breath, the patient denies any chest pain did have occasional dry cough, the patient denies any nausea vomiting did not have any abdominal pain and no diarrhea. No CBC was done today Objective - Vital Signs Vital signs: Vital Signs Temp 98.2 F 09/21/23 12:36 Pulse 115 H 09/21/23 12:36 Resp 18 09/21/23 12:36 BP 144/86 09/21/23 12:36 Pulse Ox 94 L 09/21/23 16:54 FiO2 50 09/21/23 08:07 Intake & Output 09/20/23 09/21/23 09/21/23 18:59 06:59 18:59 Intake Total 1300 Output Total 100 Balance -100 1300 Weight 86.183 kg Intake: Intake, IV Titration 1300 Amount Piperacillin-Tazobactam 3 100 .375 gm In Sodium Chloride 0.9% 100 ml @ 25 mls/hr IVPB Q8HR [facility] Rx# :[id number] Sodium Chloride 0.45% 1, 1200 000 ml @ 100 mls/hr IV . Q10H [facility] Rx#:[id number] Oral 0 Output: Urine 100 Other: Voiding Method Diaper Diaper Diaper Incontinent Incontinent Incontinent # Voids 2 1 - Exam GENERAL DESCRIPTION: An elderly male lying in bed in no distress RESPIRATORY SYSTEM: Unlabored breathing , decreased breath sounds at bases HEART: S1 S2 regular rate and rhythm , ABDOMEN: Soft , no tenderness EXTREMITIES: No edema feet - Labs CBC & Chem 7: 09/20/23 06:19 09/21/23 07:55 Labs: Microbiology - Last 24 Hours (Table) 09/19/23 01:50 CSF Gram Stain - Preliminary Cerebral Spinal Fluid CSF Culture - Preliminary 05/23/24 14:10 Blood Culture - Preliminary Blood Assessment and Plan (1) Encephalopathy acute Current Visit: Yes Status: Acute Code(s): G93.40 - ENCEPHALOPATHY, UNSPECIFIED SNOMED Code(s): 78376045 (2) Aspiration pneumonia Current Visit: Yes Status: Acute Code(s): J69.0 - PNEUMONITIS DUE TO I NHALATION OF FOOD AND VOMIT SNOMED Code(s): 983817121 Plan: 1patient does not hospital mental status changes likely multifactorial patient did have a seizure activity has been new for him also noticed to have elevated blood pressure concern for possible hypertensive encephalopathy question of encephalitis less likely as the patient not running fever did have mild elevated white count yesterday has normalized subsequently however not entirely excluded, patient did have LP completed only 1 WBC glucose normal protein only 77 not behaving as meningitis or encephalitis, patient also have abnormal MRI with ischemic changes could be responsible for his mental status changes, acyclovir was discontinued 2patient noticed to have worsening of his respiratory status and concerning for possible aspiration pneumonitis, for the patient was started on Zosyn respiratory status has improved, also has shown improvement in his mentation family the bedside multiple questions were answered Dictation was produced using [employer] dictation software. please excuse any grammatical, word or spelling errors. Time with Patient: Less than 30
[2023-09-22] MEDS: IV FLUID CONTINUATION 1,000 ML IV ONE (10:30)
[2023-09-22] MEDS: BENZOCAINE SPRAY 1 CAN TOPICAL ONE (10:32)
[2023-09-22] MEDS: fentaNYL (PF) 50 MCG/ML 2 ML AMP IVP ONE (10:35)
[2023-09-22] MEDS: MIDAZOLAM 2 MG/2 ML VIAL IVP ONE ×2 (10:35→10:40)
--- NOTE | 2023-09-22 10:46 | P.PN ---
Subjective Progress Note Date: 09/22/23 This is a 68-year-old male patient of Dr. Solis who presented to the ERWith concerns of altered mental status changes. According to at bedside Patient was found driving around confused EMS was called and upon exam patient was having difficulty following basic commands but was able to move all 4 e xtremities.According to upon arrival to ER patient did have witnessed seizure. Patient does not have a history of seizure and no other significant medical history except nicotine dependence. Patient does drink a couple beers a night according to patient has not drink a lot over the past month. Patient was treated for vertigo approximately 1 month ago But no other significant history noted. No recent change to diet or medication. Head CT was completed showing no acute intracranial process. Nonspecific white matter changes likely secondary to chronic small vessel ischemic disease.CT angiogram completed showing no evidence of dissection of the cervical internal carotid arteries or vertebral arteries are any evidence of significant stenosis of the carotid bifurcations. No evidence of intracranial high-grade stenosis or intracranial aneurysm.Chest x-ray completed showing no acute cardiopulmonary disease no changes.At this time patient remains confused does not follow command s. Patient was started on Keppra per ER. At this time neurology service is consulted. MRI of the brain and EEG has been ordered. 2-D echocardiogram ordered. Repeat labs ordered. PT OT and speech service is consulted. Current vital signs temp 98.3, heart rate 83, respiratory rate 18, blood pressure 148/92 with pulse ox 97%. on 09/17/2023 patient was seen and examined he remains in the ER awaiting bed availability, patient mental status remains abnormal he is still confused and slightly agitated, at this time infectious disease consultation was requested in regard to possible acute encephalitis, patient was started on IV acyclovir, he was also started on IV ceftriaxone for urinary tract infection, neurology, critical care, and infectious disease consult are following, consult for and his Tesio was initiated for lumbar puncture On 09/18/2023 patient is currently resting in bed appears more calm than yesterday per family at bedside. Patient was started on acyclovir and Rocephin. Infectious disease, critical care neurology services are Consulted. Possible plans for lumbar puncture. Current vital signs temp 97.8, heart rate 96, blood pressure 142/83 with pulse ox 99% on room air On 09/19/2023 patient was seen and examined on the medical floor he is currently resting in bed appears more calm than yesterday per family at bedside. he is answering a few questions appropriately. Patient was started on acyclovir and Rocephin. Infectious disease, critical care neurology services are Consulted. lumbar puncture done and results reviewed, no evidence of bacterial infection, awaiting results on her face antibodies, MRI was done and reveals an area of acute stroke, patient was seen and examined by neurology, he is improving gradually. on 09/20/2023 patient was seen and examined on the medical floor, he is alert responsive in no apparent distress, he is answering a few questions appropriately, through the night patient had worsening respiratory status with decreasing O2 sat duration, chest x-ray revealed bilateral infiltrate, patient is Now on strict nothing by mouth, he is maintained on IV fluid, IV Rocephin was discontinued and he was started on IV Zosyn for possible aspiration pneumonia, mental the patient is improving he is still significantly confused, pulmonary critical care, infectious disease and neurology are following. on 09/21/2023 patient was seen and examined on the medical floor, he is more alert and responsive today, he is sitting up in a chair, he is still maintained on oxygen via facial mask FiO2 of 50%, he is complaining of cough with sputum production, he is having generalized tremor, otherwise he denies any complaints there is no fever or chills no headache or dizziness no chest pain no shortness of breath no nausea or vomiting no abdominal pain no diarrhea no blood in the stools no burning with urination no frequency or urgency no hematuria, input from pulmonary and neurology reviewed. On 09/21/2022 4 patient is alert and more responsive today sitting up in chair. Patient on nasal cannula 5 L family at bedside. MRI and DEB has been ordered. Repeat chest x-ray also ordered. Patient denies chest pain or shortness of br eath. Patient denies nausea vomiting or diarrhea. Patient denies any urinary burning or frequency Objective - Vital Signs Vital signs: Vital Signs Temp 98.3 F 09/22/23 07:30 Pulse 95 09/22/23 07:30 Resp 18 09/22/23 07:30 BP 183/104 09/22/23 07:30 Pulse Ox 97 09/22/23 09:59 FiO2 50 09/21/23 08:07 Intake & Output 09/21/23 09/22/23 09/22/23 18:59 06:59 18:59 Intake Total 0 Output Total 200 Balance -200 Intake: Oral 0 Output: Urine 200 Other: Voiding Method Diaper Incontinent # Voids 1 1 - Exam in general patient is alert responsive confused in no apparent distress Head normocephalic and atraumatic Neck suppleno JVD no goiter Lungs clear to auscultation bilaterally no wheezing or crackles Heart regular rate and rhythm S1-S2, no rub or gallop Abdomen is soft nontender nondistended positive bowel sounds no hepatosplenomegaly Extremities no edema Neuro alert and orientated to 2 - Labs CBC & Chem 7: 09/20/23 06:19 09/21/23 07:55 Labs: Microbiology - Last 24 Hours (Table) 09/19/23 01:50 CSF Gram Stain - Preliminary Cerebral Spinal Fluid CSF Culture - Preliminary Assessment and Plan Assessment: 1. altered mental status changes likely secondary from acute ischemic stroke 2. Witnessed seizure in ER patient was started on Keppra 3. Episode of vertigo approximately 1 month ago 4. Nicotine dependence 5. Pneumonia patient started on IV Zosyn At this time patient will be admitted Neurology services consulted, pulmonary and infectious disease service is following Cardiology services consulted for DEB Repeat MRI ordered Repeat chest x-ray ordered Normal saline at 100 ordered PT OT and speech service is consulted
--- NOTE | 2023-09-22 12:18 | P.CRDCN ---
History of Present Illness Consult date: 09/22/23 Reason for Consult (text): DEB History of present illness: History of present illness: This is a 68-year-old male patient with no previous cardiac history. Patient presented to the hospital with aphasia and weakness in the right hand, diagnosed with acute ischemic stroke, as well as, acute hypoxic respiratory failure, hypertensive emergency, new onset of seizure, aspiration pneumonia. He is scheduled for another MRI of the brain today. We have been asked to evaluate the patient for DEB. Reviewed telemetry monitoring and no sign of atrial fibrillation. Family member denies previous history of atrial fibrillation. Review Of Systems: At the time of my exam: CONSTITUTIONAL: Denies fever or chills. HEENT: Denies blurred vision, vision changes, or eye pain. Denies hemoptysis CARDIOVASCULAR: Denies chest pain. Denies orthopnea. Denies PND. Denies palpitations RESPIRATORY: Denies shortness of breath. GASTROINTESTINAL: Denies abdominal pain. Denies nausea or vomiting. HEMATOLOGIC: Denies bleeding disorders. GENITOURINARY: Denies any blood in urine. SKIN: Denies pruitis. Denies rash. Physical examination: Gen: This is a 68-year-old male in no acute distress VS: reviewed HEENT: Head is atraumatic, normocephalic. Pupils equal, round. Sclerae is anicteric. NECK: Supple. No JVD. LUNGS: Clear to auscultation. No wheezes or rhonchi. No intercostal retractions. HEART: Regular rate and rhythm. No murmur. ABDOMEN: Soft No tenderness. EXTREMITIES: No pedal edema. No calf tenderness. NEUROLOGICAL: Patient is awake, alert and oriented x3. Assessment: Acute ischemic stroke Acute hypoxic respiratory failure Hypertensive emergency New onset of seizure Aspiration pneumonia Plan: N.p.o. Patient will be scheduled for DEB today with Dr. Armani Daily for 30-day event monitor at the time of discharge Further recommendations to follow based upon clinical course Thank you kindly for this consultation. Nurse practitioner note has been reviewed, I agree with documented findings and plan of care. Patient was seen and examined. Past Medical History Past Medical History: No Reported History History of Any Multi-Drug Resistant Organisms: None Reported Past Surgical History: No Surgical Hx Reported Past Psychological History: No Psychological Hx Reported Smoking Status: Current every day smoker Past Alcohol Use History: Occasional Past Drug Use History: None Reported Medications and Allergies Home Medications Medication Instructions Recorded Confirmed Type No Known Home Medications 09/15/23 09/15/23 History Allergies Allergy/AdvReac Type Severity Reaction Status Date / Time No Known Allergies Allergy Verified 09/15/23 14:58 Physical Exam Vitals: Vital Signs Temp Pulse Resp BP BP Pulse Ox 09/22/23 02:00 97.6 F 98 16 161/88 95 09/21/23 20:00 98.5 F 100 16 175/109 161/103 96 09/21/23 16:54 94 L 09/21/23 12:36 98.2 F 115 H 18 144/86 97 09/21/23 12:32 97 Intake and Output 09/21/23 09/22/23 09/22/23 22:59 06:59 14:59 Intake Total 0 Output Total 200 Balance -200 Intake: Oral 0 Output: Urine 200 Other: # Voids 1 1 Results 09/20/23 06:19 09/21/23 07:55 Current Medications Generic Name Dose Route Start Last Admin Trade Name Freq PRN Reason Stop Dose Admin Albuterol/Ipratropium 3 ml 09/17/23 03:44 09/20/23 04:08 Ipratropium-Albuterol 3 Ml Neb INHALATION 3 ml RT-QID PRN Administration Shortness Of Breath Or Wheezing Aspirin 325 mg 09/16/23 09:00 09/22/23 08:18 Aspirin 325 Mg Tab PO 325 mg DAILY KASIA Administration Atorvastatin Calcium 40 mg 09/16/23 21:00 09/21/23 20:44 Atorvastatin 40 Mg Tab PO Not Given HS [facility] Clopidogrel Bisulfate 75 mg 09/21/23 14:45 09/22/23 08:18 Clopidogrel 75 Mg Tab PO 75 mg DAILY KASIA Administration Enoxaparin Sodium 40 mg 09/19/23 09:00 09/22/23 08:19 Enoxaparin 40 Mg/0.4 Ml Syringe SQ 40 mg DAILY KASIA Administration Hydralazine HCl 10 mg 09/16/23 17:15 09/22/23 08:18 Hydralazine Hcl 20 Mg/Ml 1 Ml Vial IVP 10 mg Q4HR PRN Administration Blood Pressure - High Sodium Chloride 1,000 mls @ 100 mls/hr 09/20/23 08:00 09/21/23 23:51 Saline 0.45% IV Not Given .Q10H KASIA Piperacillin Sod/Tazobactam 100 mls @ 25 mls/hr 09/20/23 08:00 09/22/23 08:19 Sod 3.375 gm/ Sodium Chloride IVPB 25 mls/hr Q8HR KASIA Administration Protocol Lacosamide 50 mg 09/17/23 21:00 09/22/23 08:19 Lacosamide Iv (Ages 17+ Yrs) 200 Mg/20 Ml Ml IVP 50 mg BID KASIA Administration Metoprolol Tartrate 12.5 mg 09/19/23 16:52 09/22/23 08:18 Metoprolol Tartrate 12.5 Mg Tab PO 12.5 mg BID KASIA Administration Miscellaneous Information 1 each 09/20/23 08:00 Potassium Replacement Protocol 1 Each Misc MISCELLANE DAILY PRN Per Protocol Protocol Nicotine 1 patch 09/19/23 18:45 09/22/23 08:19 Nicotine 14mg/24hr Patch TRANSDERM 1 patch DAILY KASIA Administration Pantoprazole Sodium 40 mg 09/17/23 07:30 09/22/23 08:18 Pantoprazole 40 Mg Tablet PO 40 mg [id number] KASIA Administration Thiamine HCl 100 mg 09/16/23 09:00 09/22/23 08:18 Thiamine 100 Mg Tab PO 100 mg DAILY KASIA Administration Ziprasidone 20 mg 09/19/23 10:24 09/19/23 19:37 Ziprasidone 20 Mg Vial IM 20 mg BID PRN Administration Agitation or Acute Psychosis Intake and Output 09/21/23 09/22/23 09/22/23 22:59 06:59 14:59 Intake Total 0 Output Total 200 Balance -200 Intake: Oral 0 Output: Urine 200 Other: # Voids 1 1 09/20/23 06:19 09/21/23 07:55
--- NOTE | 2023-09-22 12:32 | P.TEE ---
Indications for Procedure(s): Ischemic CVA Rule out cardio-embolic etiology Description of Procedure(s): Procedure performed: 1. Transesophageal Echocardiography, attempted, but could not complete 2. Moderate conscious sedation. Sedation time 15 mins. Indications: Patient is a 68-year-old male with who presents to the hospital with left upper extremity weakness and speech difficulty. He also has dysphagia. His MRI showed evidence of ischemic stroke involving the occipital lobe. For this neurology team recommended transesophageal echocardiogram to look for cardioembolic etiology of his ischemic stroke. Consent: I have discussed the risks, benefits and alternative therapies for the above-mentioned procedure. The patient has indicated understanding and acceptance of the risks of the procedure. Signed consent was obtained and was placed in the paper chart. Procedural Steps: Timeout was performed in usual fashion. Patient's heart rate, blood pressure, oxygen saturation and ECG were monitored. Benzocaine was sprayed liberally in the back of the throat. Bite block was placed between the jaw. 2 mg of Versed and 75 mcg of Fentanyl were administered intravenously. After achieving appropriate moderate conscious sedation, DEB probe was advanced without difficulty and without any immediate complications to the esophagus. DEB study was performed with color flow doppler, pulsed wave doppler and continuous wave doppler. The probe was then removed. Patient tolerated the procedure well. Patient was transferred to the post procedure area in stable and satisfactory condition. Throughout the procedure patient's heart rate, blood pressure, oxygen saturation and ECG were monitored. Total sedation time 15 mins. Complications: CONCLUSION: DEB images could not be obtained. The DEB probe entered the esophagus without any difficulty but could not be passed beyond the upper esophagus to reach the mid esophagus. The probe was withdrawn and intubation was attempted again. Again the DEB probe could not pass beyond the upper esophagus. We did not attempt pushing the DEB probe further because of concern of possible Zenker's diverticulum or other esophageal pathologies. The DEB procedure was terminated. Family was updated, and the Findings were communicated to them Plan In meanwhile, we will obtain transthoracic echocardiogram and a 30-day event monitor If DEB is clinically indicated, would like to have GI evaluate the patient to make sure that there is no concerns of diverticulum or other esophageal pathologies. Abdoul Lomeli MD, RPVI, FACC Thank you for allowing [facility] to participate in this patient's care. Feel free to reach out in case of any followup questions.
[2023-09-22] MEDS: fentaNYL (PF) 50 MCG/ML 2 ML AMP ONE (12:37)
[2023-09-22] MEDS: amLODIPine 5 MG TAB PO SCH (12:40)
--- NOTE | 2023-09-22 13:09 | P.PN ---
Subjective Progress Note Date: 09/22/23 Patient is a 68-year-old white male with unknown past medical history. Patient is currently aphasic and unable to provide any information. Apparently, patient was noted to be acting abnormal by his neighbor earlier yesterday afternoon. He reportedly had left arm weakness/neglect. Unknown last well time. Patient was brought into the emergency room by EMS 09/15/2023. While in the emergency room, he did reportedly have seizure-like activity, which was terminated with 1 mg of Ativan. He was also loaded with 1500 mg of Keppra and started on Keppra 500 mg twice a day. CT of the brain did not show any acute intracranial process. No intracranial hemorrhage or mass effect. Brain CTA of head and neck did not show evidence of dissection of the cervical internal carotid arteries or vertebral arteries or any evidence of significant stenosis at the carotid bifurcations. No evidence of intracranial high-grade stenosis or intracranial aneurysm. No reported fevers. Urine toxicology screen negative. Serum alcohol less than 10. On my evaluation, the patient is alert. He is completely aphasic. No facial asymmetry. He will track me with his eyes around the bed. He does not follow commands. He is moving all 4 extremities. No observable hemiparesis/plegia. No noted seizure-like activity. Earlier he was reportedly restless and agitated. Given one time dose of Geodon and started on Seroquel. Blood pressure is hypertensive, recorded as high as 205/125. As needed hydralazine was added, and blood pressures improved to 165/82. EKG done on arrival consistent with sinus tachycardia. No obvious acute ischemic changes. Most recent CBC from yesterday: WBC count 12.7, hemoglobin 13.9, hematocrit 43.5, platelets 170. BMP from admission: Sodium 137, potassium 4.2, chloride 106, serum bicarb 21, BUN 18, creatinine 1.14, glucose 118. LFTs not elevated. Troponins 0.015 and 0.027 respectively. We were consulted for ICU evaluation. Patient does not necessarily need ICU management at this time. No further seizure activity. hemodynamically is stable. Follow-up brain MRI pending. Patient started on aspirin and statin. Prognosis is certainly guarded. On today's evaluation of 09/18/2023, the patient is being seen for a follow-up. The patient seems to be much more comfortable and calm on today's evaluation is resting comfortably in bed. He remains on a combination of Rocephin and acyclovir. The plan is to proceed with a lumbar puncture this will be done by the seizure today. ID and urology are both on the case. He is on room air oxygen with a pulse ox of 99%. Rest of the blood work shows a WBC of 10.2 with a hemoglobin 15.4 and this was done yesterday. Electrolytes are all stable.EEG showed no significant abnormalities. No evidence of any epileptic foci.. On 09/19/2023, the patient is being seen for regular follow-up. He is able to communicate and answer a few questions although is still confused. Lumbar puncture was done and there is some mild elevation of the CSF protein at 77. The nucleated white cells are only at 1. No evidence of any RBCs in the CSF and MRI of the brain was completed and it showed an elevated of an ischemic stroke left parietal lobe deep white matter. No seizure activity has been noted. Neurology on the case. ID is on the case. He remains afebrile and hemodynamically stable. Pulse ox is 94% room air oxygen. 09/20/2023, the patient is being seen for a follow-up. Neurologically, the patient remains confused although he has been noted to be slightly more conservative. His overall mental status continues to wax and wane. Seems to be less restless and agitated on today's evaluation. Nevertheless, the patient developed ischemia. His oxygen requirements steadily went up and the patient is currently utilizing 15 L Ventimask with an FiO2 of 50%. Reviewed the chest x- ray from today and the patient has bilateral perihilar pulm infiltrates and possibility of underlying aspiration pneumonia cannot be completely ruled out. The patient was accordingly started on IV Zosyn. He is n.p.o. for now. IV fluids in the form of half-normal saline that is running at the rate of 100 cc an hour. White cell count of 12 with a hemoglobin 15.4 and a platelet count of 202. Sodium levels at 148, BUN is 25 with a creatinine of 1.38 and a bicarb level is at 21. IV acyclovir has been discontinued. IV Rocephin has been disco ntinued and the patient was started on IV Zosyn. On 09/21/2023, the patient is being seen for a follow-up. The patient is improved significantly. He is feeling better. He is currently on 60s of oxygen by nasal cannula with a pulse ox of 97%. He remains on IV Zosyn. No focal neurological deficits. WBC count is at 12.2 with a hemoglobin 15.4. Electrolytes from yesterday were noted. The patient is afebrile. The consensus is that the patient could have had a stroke involving the left occipital parietal region and there is also hyperintensity on the bilateral thalamus a right more than left. The patient was kept on aspirin and Plavix neurology is considering to repeat the MRI. In terms of respiratory status, he continues to have some cough and congestion and sputum. Nevertheless that, the oxygenation is improved. The patient is seen today September 22, 2023 in follow-up on the regular medical floor. He is awake and alert in no acute distress. He is sitting up in a chair. He is maintaining O2 saturation in the 90s on 5 L/min per nasal cannula. Plan is for DEB today. Previous spinal fluid revealed no growth. He is continued on Zosyn. NicoDerm patch in place. Remains on bronchodilators as needed. Lovenox for DVT prophylaxis. Objective - Vital Signs Vital signs: Vital Signs Temp 97.7 F 09/22/23 12:01 Pulse 93 09/22/23 12:32 Resp 16 09/22/23 12:32 BP 120/77 09/22/23 12:32 Pulse Ox 94 L 09/22/23 12:32 FiO2 50 09/21/23 08:07 Intake & Output 09/21/23 09/22/23 09/22/23 18:59 06:59 18:59 Intake Total 0 100 Output Total 200 225 Balance -200 -125 Intake: IV 100 Oral 0 Output: Urine 200 225 Other: Voiding Method Diaper Urinal Incontinent Diaper Incontinent # Voids 1 1 - Exam GENERAL EXAM: Alert, altered 68-year-old male, on 5 L nasal cannula, in a chair, in no apparent distress. HEAD: Normocephalic. EYES: Normal reaction of pupils, equal size. NOSE: Clear with pink turbinates. THROAT: No erythema or exudates. NECK: No masses, no JVD. CHEST: No chest wall deformity. LUNGS: Equal air entry with no crackles, wheeze, rhonchi or dullness. CVS: S1 and S2 normal with no audible murmur, regular rhythm. ABDOMEN: No hepatosplenomegaly, normal bowel sounds, no guarding or rigidity. SPINE: No scoliosis or deformity SKIN: No rashes CENTRAL NERVOUS SYSTEM: No focal deficits, tone is normal in all 4 extremities. EXTREMITIES: There is no peripheral edema. No clubbing, no cyanosis. Peripheral pulses are intact. - Labs CBC & Chem 7: 09/20/23 06:19 09/21/23 07:55 Labs: Microbiology - Last 24 Hours (Table) 09/19/23 01:50 CSF Gram Stain - Preliminary Cerebral Spinal Fluid CSF Culture - Preliminary Assessment and Plan Assessment: Altered mental status, currently under investigation, CT of the brain did not show any acute intracranial process. No intracranial hemorrhage or mass effect. Brain CTA of head and neck did not show evidence of dissection of the cervical internal carotid arteries or vertebral arteries or any evidence of significant stenosis at the carotid bifurcations. No evidence of intracranial high-grade stenosis or intracranial aneurysm. No fevers. Toxicology screen negative. The lumbar puncture showed some mild elevation of the protein without any nucleated RBCs or evidence of bleeding. MRI of the brain showed abnormalities in the thalamus along with the left occipital parietal region. The patient is currently on aspirin and Plavix. Neurologically improving. Seizure, possibly new onset, terminated with 1 mg Ativan, patient also loaded with 1500 mg of Keppra and started on Keppra 500 mg twice a day. Follow-up EEG does not show any epileptiform discharge/seizure or focal slowing. The patient is currently on Vimpat. Aphasia/dysphasia Acute hypoxemic respiratory failure, currently on 5 L of oxygen nasal cannula, possible aspiration pneumonia IV Zosyn Hypertensive urgency, improved with as needed hydralazine Hyperlipidemia Suspect underlying chronic obstructive pulmonary disease, does not appear in exacerbation Chronic tobacco dependence reported Plan: The patient was seen and evaluated Medications reviewed Titrate down the FiO2 as tolerated Follow-up chest x-ray pending Currently up in a chair Plan is for DEB today Remains on Zosyn Remains on Lovenox NicoDerm patch in place Remains on Vimpat We will continue to follow I have personally seen and examined the patient, performed the documentation and the assessment and plan as written. Number of minutes spent on the visit: 10.
[2023-09-22 14:25] LABS: VDRL, Qualitative CSF Nonreactive (Nonreactive)
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
--- NOTE | 2023-09-22 15:41 | XR ---
EXAMINATION TYPE: XR chest 1V DATE OF EXAM: 09/22/2023 COMPARISON: 09/20/2023 HISTORY: 68-year-old male follow-up pneumonia TECHNIQUE: Single frontal view of the chest is obtained. FINDINGS: Heart upper limits of normal in size. Hazy interstitial densities persist especially in th e mid and lower lungs with slight interval improvement. Mild hyperinflation. IMPRESSION: Patchy interstitial changes especially in the mid and lower lungs show slight improvemen t. Underlying atypical pneumonia is a consideration.
--- NOTE | 2023-09-22 16:30 | MR ---
EXAMINATION TYPE: MR brain wo con DATE OF EXAM: 09/22/2023 COMPARISON: 09/18/2023 HISTORY: Stroke, Repeat. Had motion artifact CONTRAST: Performed utilizing 0 mL intravenous Gadavist gadolinium contrast. TECHNIQUE: Multiplanar, multiecho imaging on a 3.0 Rachel magnet is performed through the brain. Stud y is performed within 24 hours of arrival to the hospital. The craniovertebral junction is normal. The pituitary is normal. Diffusion-weighted imaging is performed. There is hyperintensity within the posterior right parietal gyrus compatible with cortical ischemia. There is a focus of hyperintensity within the left parietal-occipital junction adjacent to the occipi dayron horn lateral ventricle. Focal acute ischemic area likely present. This was present previously and is increased in prominence over the interval. Results were called to the patient's nurse by by hansel cowart 1620 hours 09/22/2023. There is mild increased signal on T2 sequences within the posterior right parietal gyrus with some mi ld local edema. There are couple of additional punctate areas of hyperintensity on T2 and inversion recovery weighted sequences, likely on the basis of chronic white matter ischemic change. Ventricles and sulci are appropriate for the patient age. IMPRESSION: 1. Increased signal within the gyrus of the posterior right parietal lobe. This does have some extent along the sylvian fissure. Consider cortical infarct and ischemia. However, clinical consideration f or infection such as herpes simplex virus is also recommended. Findings are worsening from earlier ex am. A Red level critical message alert has been initiated for Tony Kathleen MD via the [employer] System on 09/22/2023 4:16 PM. This message alert has been sent to Tony Kathleen MD via the preferences provided by the clinician for the receipt of Radiology Critical Findings. Message ID [id number].
--- NOTE | 2023-09-22 16:35 | P.PN ---
Subjective Progress Note Date: 09/22/23 Principal diagnosis: Reason for follow-up is encephalitis questionable herpes Patient is a 68-year-old male who was brought into the hospital for evaluation of mental status changes, patient also have a seizure activity and did have a negative workup for CVA with increasing confusion concern for possible encephalitis prompting this consultation. On today's evaluation that is 09/22/2023, patient has been afebrile, patient is breathing comfortably and is currently on 5 L nasal cannula oxygen, patient denies having any significant cough no chest pain shortness of breath, patient denies nausea vomiting or diarrhea and no abdominal pain. No new labs has been repeated today blood culture has been negative Objective - Vital Signs Vital signs: Vital Signs Temp 97.7 F 09/22/23 12:01 Pulse 93 09/22/23 12:32 Resp 16 09/22/23 12:32 BP 120/77 09/22/23 12:32 Pulse Ox 94 L 09/22/23 12:32 FiO2 50 09/21/23 08:07 Intake & Output 09/21/23 09/22/23 09/22/23 18:59 06:59 18:59 Intake Total 0 100 Output Total 200 225 Balance -200 -125 Intake: IV 100 Oral 0 Output: Urine 200 225 Other: Voiding Method Diaper Urinal Incontinent Diaper Incontinent # Voids 1 1 - Exam GENERAL DESCRIPTION: An elderly male lying in bed in no distress RESPIRATORY SYSTEM: Unlabored breathing , decreased breath sounds at bases HEART: S1 S2 regular rate and rhythm , ABDOMEN: Soft , no tenderness EXTREMITIES: No edema feet - Labs CBC & Chem 7: 09/20/23 06:19 09/21/23 07:55 Labs: Microbiology - Last 24 Hours (Table) 09/19/23 01:50 CSF Gram Stain - Preliminary Cerebral Spinal Fluid CSF Culture - Preliminary Assessment and Plan (1) Encephalopathy acute Current Visit: Yes Status: Acute Code(s): G93.40 - ENCEPHALOPATHY, UNSPECIFIED SNOMED Code(s): 17925267 (2) Aspiration pneumonia Current Visit: Yes Status: Acute Code(s): J69.0 - PNEUMONITIS DUE TO INHALATION OF FOOD AND VOMIT SNOMED Code(s): 109633001 Plan: 1patient does not hospital mental status changes likely multifactorial patient did have a seizure activity has been new for him also noticed to have elevated blood pressure concern for possible hypertensive encephalopathy question of encephalitis less likely as the patient not running fever did have mild elevated white count yesterday has normalized subsequently however not entirely excluded, patient did have LP completed only 1 WBC glucose normal protein only 77 not behaving as meningitis or encephalitis, patient also have abnormal MRI with ischemic changes could be responsible for his mental status changes, acyclovir was discontinued 2patient noticed to have worsening of his respiratory status and concerning for possible aspiration pneumonitis, for which the patient has been started on Zosyn to continue and monitor clinical course closely Dictation was produced using [employer] dictation software. please excuse any grammatical, word or spelling errors. Time with Patient: Less than 30
--- NOTE | 2023-09-22 18:24 | P.PN ---
Progress Note - Text Progress Note Date: 09/22/23 Results of MRI brain on 09/22/2023 reviewed, as well as chest x-ray results Dr. Liu infectious disease notified He will review MRI of the brain again and to assess if any change in antibiotic or antiviral medications is warranted Patient had negative lumbar puncture
--- NOTE | 2023-09-23 10:22 | P.PN ---
Subjective Progress Note Date: 09/23/23 Reason for Consult (text): DEB History of present illness: History of present illness: This is a 68-year-old male patient with no previous cardiac history. Patient presented to the hospital with aphasia and weakness in the right hand, diagnosed with acute ischemic stroke, as well as, acute hypoxic respiratory failure, hypertensive emergency, new onset of seizure, aspiration pneumonia. He is scheduled for another MRI of the brain today. We have been asked to evaluate the patient for DEB. Reviewed telemetry monitoring and no sign of atrial fibri llation. Family member denies previous history of atrial fibrillation. 09/22 Yesterday, patient underwent DEB but probe could not be passed beyond the upper esophagus. Patient has been scheduled for swallow test. Chest x-ray reveals patchy interstitial changes specially in the mid and lower lungs show slight improvement. Underlying atypical pneumonia is a consideration. MRI of the brain completed on 09/21 revealed increased signal within the gyrus of the posterior right parietal lobe. Consider cortical infarct and ischemia. Consider infectious source such as herpes simplex virus recommended. Findings are worsening from earlier exam. Patient's speech notes noted to be improved from yesterday. He states he feels better today. Yesterday, amlodipine was added for blood pressure control. Blood pressure is 162/94, heart rate in the 80s, pulse ox 99% on 5 L nasal cannula. Physical examination: Gen: This is a 68-year-old male in no acute distress VS: reviewed HEENT: Head is atraumatic, normocephalic. Pupils equal, round. Sclerae is anicteric. NECK: Supple. No JVD. LUNGS: Clear to auscultation. No wheezes or rhonchi. No intercostal retractions. HEART: Regular rate and rhythm. No murmur. ABDOMEN: Soft No tenderness. EXTREMITIES: No pedal edema. No calf tenderness. NEUROLOGICAL: Patient is awake, alert and oriented x3. Assessment: Acute ischemic stroke Acute hypoxic respiratory failure Hypertensive emergency New onset of seizure Aspiration pneumonia Plan: Continue the addition of amlodipine Plan for 30-day event monitor at the time of discharge Cardiology will sign off this case and follow on an as-needed basis. Please reconsult for any new concerns. Patient may follow-up in the office with Dr. Lomeli in 6 weeks. Nurse practitioner note has been reviewed, I agree with documented findings and plan of care. Patient was seen and examined. Objective - Vital Signs Vital signs: Vital Signs Temp 98.3 F 09/23/23 07:44 Pulse 81 09/23/23 07:44 Resp 17 09/23/23 07:44 BP 162/94 09/23/23 07:44 Pulse Ox 97 09/23/23 08:29 FiO2 50 09/21/23 08:07 Intake & Output 09/22/23 09/23/23 09/23/23 18:59 06:59 18:59 Intake Total 100 Output Total 225 375 Balance -125 -375 Intake: IV 100 Output: Urine 225 375 Other: Voiding Method Urinal Urinal Diaper Diaper Incontinent Incontinent # Bowel Movements 1 - Labs CBC & Chem 7: 09/20/23 06:19 09/21/23 07:55 Labs: Microbiology - Last 24 Hours (Table) 09/19/23 01:50 CSF Gram Stain - Final Cerebral Spinal Fluid CSF Culture - Final 09/17/23 14:10 Blood Culture - Final Blood
[2023-09-23 10:33] LABS: Basophils # (A) 0.05 X 10*3/uL (0.00-0.10); Basophils % (A) 0.4 %; Eosinophils # (A) 0.96 X 10*3/uL (0.04-0.35); Eosinophils % (A) 8.1 %; HCT 42.9 % (39.6-50.0); HGB 13.7 g/dL (13.0-17.0); Lymphocytes # (A) 1.39 X 10*3/uL (0.90-5.00); Lymphocytes % (A) 11.7 %; MCH 32.5 pg (27.0-32.0); MCHC 31.9 g/dL (32.0-37.0); MCV 101.7 FL (80.0-97.0); Mean Platelet Volume 12.6 FL (9.5-12.2); Monocytes # (A) 0.72 X 10*3/uL (0.20-1.00); NRBC Per 100 WBC 0 X 10*3/uL (0.00-0.01); Neutrophils # (A) 8.71 X 10*3/uL (1.80-7.70); Neutrophils % (A) 73.1 %; Platelet Count 212 X 10*3/uL (140-440); RBC 4.22 X 10*6/uL (4.40-5.60); RDW 14.1 % (11.5-14.5); WBC 11.91 X 10*3/uL (4.50-10.00)
[2023-09-23 10:46] LABS: ALT 41 U/L (10-49); AST 43 U/L (14-35); Albumin 3.5 g/dL (3.8-4.9); Albumin/Globulin Ratio 1.13 Ratio (1.60-3.17); Alkaline Phosphatase 66 U/L (41-126); BUN/Creat Ratio 26.83 Ratio (12.00-20.00); Blood Urea Nitrogen 32.2 mg/dL (9.0-27.0); Calcium 9.4 mg/dL (8.7-10.3); Carbon Dioxide 24.5 mmol/L (21.6-31.8); Chloride 112 mmol/L (96-109); Globulin 3.1 g/dL (1.6-3.3); Glucose 106 mg/dL (70-110); Potassium 3.7 mmol/L (3.5-5.5); Sodium 148 mmol/L (135-145); Total Bilirubin 0.8 mg/dL (0.3-1.2); Total Protein 6.6 g/dL (6.2-8.2)
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
--- NOTE | 2023-09-23 10:48 | FL ---
COMPARISON: NONE DATE OF EXAM: 09/23/2023 HISTORY: Dysphasia A number of thin and thick substances were ingested under the care of the department of speech pathol ogy. There is a large amount of aspiration with thin barium. Silent aspiration with honey and penetr ation with nectar. Residuals within the piriform sinus and vallecula. DAP are not provided. 1 minute 36 seconds of fluoroscopy. No images submitted. IMPRESSION: 1. Exam positive for aspiration.
--- NOTE | 2023-09-23 14:12 | P.PN ---
Subjective Progress Note Date: 09/23/23 Patient is a 68-year-old white male with unknown past medical history. Patient is currently aphasic and unable to provide any information. Apparently, patient was noted to be acting abnormal by his neighbor earlier yesterday afternoon. He reportedly had left arm weakness/neglect. Unknown last well time. Patient was brought into the emergency room by EMS 09/15/2023. While in the emergency room, he did reportedly have seizure-like activity, which was terminated with 1 mg of Ativan. He was also loaded with 1500 mg of Keppra and started on Keppra 500 mg twice a day. CT of the brain did not show any acute intracranial process. No intracranial hemorrhage or mass effect. Brain CTA of head and neck did not show evidence of dissection of the cervical internal carotid arteries or vertebral arteries or any evidence of significant stenosis at the carotid bifurcations. No evidence of intracranial high-grade stenosis or intracranial aneurysm. No reported fevers. Urine toxicology screen negative. Serum alcohol less than 10. On my evaluation, the patient is alert. He is completely aphasic. No facial asymmetry. He will track me with his eyes around the bed. He does not follow commands. He is moving all 4 extremities. No observable hemiparesis/plegia. No noted seizure-like activity. Earlier he was reportedly restless and agitated. Given one time dose of Geodon and started on Seroquel. Blood pressure is hypertensive, recorded as high as 205/125. As needed hydralazine was added, and blood pressures improved to 165/82. EKG done on arrival consistent with sinus tachycardia. No obvious acute ischemic changes. Most recent CBC from yesterday: WBC count 12.7, hemoglobin 13.9, hematocrit 43.5, platelets 170. BMP from admission: Sodium 137, potassium 4.2, chloride 106, serum bicarb 21, BUN 18, creatinine 1.14, glucose 118. LFTs not elevated. Troponins 0.015 and 0.027 respectively. We were consulted for ICU evaluation. Patient does not necessarily need ICU management at this time. No further seizure activity. hemodynamically is stable. Follow-up brain MRI pending. Patient started on aspirin and statin. Prognosis is certainly guarded. On today's evaluation of 09/18/2023, the patient is being seen for a follow-up. The patient seems to be much more comfortable and calm on today's evaluation is resting comfortably in bed. He remains on a combination of Rocephin and acyclovir. The plan is to proceed with a lumbar puncture this will be done by the seizure today. ID and urology are both on the case. He is on room air oxygen with a pulse ox of 99%. Rest of the blood work shows a WBC of 10.2 with a hemoglobin 15.4 and this was done yesterday. Electrolytes are all stable.EEG showed no significant abnormalities. No evidence of any epileptic foci.. On 09/19/2023, the patient is being seen for regular follow-up. He is able to communicate and answer a few questions although is still confused. Lumbar puncture was done and there is some mild elevation of the CSF protein at 77. The nucleated white cells are only at 1. No evidence of any RBCs in the CSF and MRI of the brain was completed and it showed an elevated of an ischemic stroke left parietal lobe deep white matter. No seizure activity has been noted. Neurology on the case. ID is on the case. He remains afebrile and hemodynamically stable. Pulse ox is 94% room air oxygen. 09/20/2023, the patient is being seen for a follow-up. Neurologically, the patient remains confused although he has been noted to be slightly more conservative. His overall mental status continues to wax and wane. Seems to be less restless and agitated on today's evaluation. Nevertheless, the patient developed ischemia. His oxygen requirements steadily went up and the patient is currently utilizing 15 L Ventimask with an FiO2 of 50%. Reviewed the chest x- ray from today and the patient has bilateral perihilar pulm infiltrates and possibility of underlying aspiration pneumonia cannot be completely ruled out. The patient was accordingly started on IV Zosyn. He is n.p.o. for now. IV fluids in the form of half-normal saline that is running at the rate of 100 cc an hour. White cell count of 12 with a hemoglobin 15.4 and a platelet count of 202. Sodium levels at 148, BUN is 25 with a creatinine of 1.38 and a bicarb level is at 21. IV acyclovir has been discontinued. IV Rocephin has been disco ntinued and the patient was started on IV Zosyn. On 09/21/2023, the patient is being seen for a follow-up. The patient is improved significantly. He is feeling better. He is currently on 60s of oxygen by nasal cannula with a pulse ox of 97%. He remains on IV Zosyn. No focal neurological deficits. WBC count is at 12.2 with a hemoglobin 15.4. Electrolytes from yesterday were noted. The patient is afebrile. The consensus is that the patient could have had a stroke involving the left occipital parietal region and there is also hyperintensity on the bilateral thalamus a right more than left. The patient was kept on aspirin and Plavix neurology is considering to repeat the MRI. In terms of respiratory status, he continues to have some cough and congestion and sputum. Nevertheless that, the oxygenation is improved. The patient is seen today September 22, 2023 in follow-up on the regular medical floor. He is awake and alert in no acute distress. He is sitting up in a chair. He is maintaining O2 saturation in the 90s on 5 L/min per nasal cannula. Plan is for DEB today. Previous spinal fluid revealed no growth. He is continued on Zosyn. NicoDerm patch in place. Remains on bronchodilators as needed. Lovenox for DVT prophylaxis. The patient is seen today September 23, 2023 in follow-up on the regular medical floor. He is currently sitting up in a chair. Awake and alert in no acute distress. He is maintaining O2 saturations in the 90s on 3 L/min per nasal cannula. His follow-up MRI of the brain revealed increased signal within the gyrus of the posterior right parietal lobe. This does have some extent along the sylvian fissure. Consider cortical infarct and ischemia. HSV was not detected. Cerebrospinal fluid cultures were negative. White count 11.9. Hemoglobin 13.7. Platelets 212. Sodium 148. Potassium 3.7. Bicarb 25. BUN 32. Creatinine 1.2. Glucose 106. Chest x-ray showed patchy interstitial changes especially in the midlung lower lungs showing slight improvement. Barium swallow is positive for aspiration. He is currently on Zosyn. Lovenox for DVT prophylaxis. Continued on Plavix and aspirin. NicoDerm patch in place. Objective - Vital Signs Vital signs: Vital Signs Temp 98 F 09/23/23 13:30 Pulse 85 09/23/23 13:30 Resp 17 09/23/23 13:30 BP 145/86 09/23/23 13:30 Pulse Ox 98 09/23/23 13:30 FiO2 50 09/21/23 08:07 Intake & Output 09/22/23 09/23/23 09/23/23 18:59 06:59 18:59 Intake Total 100 240 Output Total 225 375 Balance -125 -375 240 Intake: IV 100 Oral 240 Output: Urine 225 375 Other: Voiding Method Urinal Urinal Diaper Diaper Incontinent Incontinent # Voids 1 # Bowel Movements 1 1 - Exam GENERAL EXAM: Alert, 68-year-old male, on 3 L nasal cannula, in a chair, in no apparent distress. HEAD: Normocephalic. EYES: Normal reaction of pupils, equal size. NOSE: Clear with pink turbinates. THROAT: No erythema or exudates. NECK: No masses, no JVD. CHEST: No chest wall deformity. LUNGS: Equal air entry with few scattered rhonchi bilaterally. CVS: S1 and S2 normal with no audible murmur, regular rhythm. ABDOMEN: No hepatosplenomegaly, normal bowel sounds, no guarding or rigidity. SPINE: No scoliosis or deformity SKIN: No rashes CENTRAL NERVOUS SYSTEM: No focal deficits, tone is normal in all 4 extremities. EXTREMITIES: There is no peripheral edema. No clubbing, no cyanosis. Peripheral pulses are intact. - Labs CBC & Chem 7: 09/23/23 07:10 09/23/23 07:10 Labs: Abnormal Lab Results - Last 24 Hours (Table) 09/23/23 09/23/23 Range/Units 07:10 07:10 WBC 11.91 H (4.50-10.00) X 10*3/uL RBC 4.22 L (4.40-5.60) X 10*6/uL MCV 101.7 H (80.0-97.0) FL MCH 32.5 H (27.0-32.0) pg MCHC 31.9 L (32.0-37.0) g/dL MPV 12.6 H (9.5-12.2) FL Immature Gran # 0.08 H (0.00-0.04) X 10*3/uL Neutrophils # 8.71 H (1.80-7.70) X 10*3/uL Eosinophils # 0.96 H (0.04-0.35) X 10*3/uL Sodium 148 H (135-145) mmol/L Chloride 112 H (96-109) mmol/L BUN 32.2 H (9.0-27.0) mg/dL BUN/Creatinine Ratio 26.83 H (12.00-20.00) Ratio AST 43 H (14-35) U/L Albumin 3.5 L (3.8-4.9) g/dL Albumin/Globulin Ratio 1.13 L (1.60-3.17) Ratio Microbiology - Last 24 Hours (Table) 09/19/23 01:50 CSF Gram Stain - Final Cerebral Spinal Fluid CSF Culture - Final 09/17/23 14:10 Blood Culture - Final Blood Assessment and Plan Assessment: Altered mental status, currently under investigation, CT of the brain did not show any acute intracranial process. No intracranial hemorrhage or mass effect. Brain CTA of head and neck did not show evidence of dissection of the cervical internal carotid arteries or vertebral arteries or any evidence of significant stenosis at the carotid bifurcations. No evidence of intracranial high-grade stenosis or intracranial aneurysm. No fevers. Toxicology screen negative. The lumbar puncture showed some mild elevation of the protein without any nucleated RBCs or evidence of bleeding. MRI of the brain 09/18/2023 showed abnormalities in the thalamus along with the left occipital parietal region. The patient is currently on aspirin and Plavix. Neurologically improving. Follow-up MRI of the brain from 09/22/2023 revealed increased signal within the gyrus of the posterior right parietal lobe. This does have some extent along the sylvian fissure. Consider cortical infarct and ischemia Seizure, possibly new onset, terminated with 1 mg Ativan, patient also loaded with 1500 mg of Keppra and started on Keppra 500 mg twice a day. Follow-up EEG does not show any epileptiform discharge/seizure or focal slowing. The patient is currently on Vimpat Aphasia/dysphasia. Barium swallow positive for aspiration. Acute hypoxemic respiratory failure, currently on 3 L of oxygen nasal cannula, possible aspiration pneumonia, on IV Zosyn Hypertensive urgency, improved with as needed hydralazine Hyperlipidemia Suspect underlying chronic obstructive pulmonary disease, does not appear in exacerbation Chronic tobacco dependence reported Plan: The patient was seen and evaluated MRI of the brain, labs and medications reviewed Barium swallow reviewed, positive for aspiration Neurology is following Titrate down the FiO2 as tolerated Chest x-ray showing improvement Remains on Zosyn Currently up in a chair We will continue to follow I have personally seen and examined the patient, performed the documentation and the assessment and plan as written. Number of minutes spent on the visit: 10.
--- NOTE | 2023-09-23 17:02 | P.CONS ---
History of Present Illness - Reason for Consult Consult date: 09/23/23 Rule out diverticulum Requesting physician: Tony Kathleen - Chief Complaint Altered mental status changes, acute stroke - History of Present Illness This is a pleasant 68-year-old male who was brought into the hospital for concerns for altered mental status changes with left-sided weakness and aphasia. Past medical history includes heavy daily smoker, but no other history reported. Apparently patient does not follow with primary care physician. Apparently patient had some seizure activity when he was brought into the emergency department. Patient was admitted and worked up for stroke evaluation. He is diagnosed with acute ischemic stroke of left occipital/parietal lobe. Neurology had recommended a DEB as part of the evaluation. Cardiology attempted to perform DEB on 523 however could not be completed according to the DEB report the probe was able to enter the esophagus without any difficulty but could not be passed beyond the upper esophagus to reach the midesophagus. The probe was withdrawn and the study was aborted. Gastroenterology was consulted for concern for possible Zenker's diverticulum or other esophageal pathologies. Patient is sitting up at the bedside in his chair. His sister is present. He is still having episodes of confusion. Speech appears fluent does report still some left upper extremity weakness. He was on a regular breakfast and had been noted that he was having coughing episodes with pancakes and sausage this morning. He underwent a modified barium swallow that showed aspiration. Gastroenterology was consulted for endoscopic evaluation. Patient and his sister both state that he had no prior difficulties with swallowing, no pain with swallowing and no previous problems with choking. Review of Systems REVIEW OF SYSTEMS: CARDIOPULMONARY: No chest pain or shortness of breath. Gastrointestinal: Abdominal pain. No nausea or vomiting. No hematemesis, coffee-ground emesis. No rectal bleeding, or melena. GENITOURINARY: No dysuria or hematuria. MUSCULOSKELETAL: Reports normal range of motion., Joint pain. SKIN: No rashes. No jaundice. ENDOCRINE: No chills, fevers. No excessive weight gain or loss. No polydipsia or polyuria. PSYCHIATRIC: Unremarkable. NEUROLOGY: Patient with mental status changes, aphasia, confusion. Suffered acute stroke.. Denies dizziness, headache. ENT: Vision unremarkable. CONSTITUTIONAL: No recent weight loss. No fever, chills, night sweats. Past Medical History Past Medical History: No Reported History History of Any Multi-Drug Resistant Organisms: None Reported Past Surgical History: No Surgical Hx Reported Past Psychological History: No Psychological Hx Reported Smoking Status: Current every day smoker Past Alcohol Use History: Occasional Past Drug Use History: None Reported Medications and Allergies Home Medications Medication Instructions Recorded Confirmed Type No Known Home Medications 09/15/23 09/15/23 History Allergies Allergy/AdvReac Type Severity Reaction Status Date / Time No Known Allergies Allergy Verified 09/15/23 14:58 Physical Exam Vitals: Vital Signs Temp Pulse Resp BP BP Pulse Ox 09/23/23 08:29 97 09/23/23 07:44 98.3 F 81 17 162/94 99 09/23/23 01:45 97.9 F 88 16 153/79 96 09/22/23 22:00 18 09/22/23 19:17 98.1 F 90 17 142/80 97 09/22/23 14:45 82 122/74 95 09/22/23 14:30 89 125/73 93 L 09/22/23 14:15 94 118/76 96 09/22/23 14:00 89 145/81 95 09/22/23 13:22 102 H 175/96 92 L 09/22/23 13:11 103 H 120/98 88 L 09/22/23 12:51 102 H 164/99 93 L 09/22/23 12:36 89 172/89 94 L 09/22/23 12:32 93 16 120/77 94 L 09/22/23 12:01 97.7 F 91 16 169/90 94 L Intake and Output 09/22/23 09/23/23 09/23/23 22:59 06:59 14:59 Intake Total 240 Output Total 175 200 Balance -175 -200 240 Intake: Oral 240 Output: Urine 175 200 Other: Voiding Method Urinal Diaper Incontinent # Bowel Movements 1 General appearance: The patient is alert, oriented, appears in no acute dis tress. HET: Head is normocephalic and atraumatic. Conjunctiva pink. Sclera anicteric. Neck: Supple without lymphadenopathy. Trachea midline. Heart: Regular. Lungs: Equal expansion, normal respiratory effort. Abdomen: Soft, nontender, nondistended. Skin: No rashes. No jaundice. Extremities: Normal skin color and turgor. No pedal edema. Neurological: No focal deficits. Alert and oriented x3. Results CBC & Chem 7: 09/23/23 07:10 09/23/23 07:10 Labs: Abnormal Lab Results - Last 24 Hours (Table) 09/23/23 09/23/23 Range/Units 07:10 07:10 WBC 11.91 H (4.50-10.00) X 10*3/uL RBC 4.22 L (4.40-5.60) X 10*6/uL MCV 101.7 H (80.0-97.0) FL MCH 32.5 H (27.0-32.0) pg MCHC 31.9 L (32.0-37.0) g/dL MPV 12.6 H (9.5-12.2) FL Immature Gran # 0.08 H (0.00-0.04) X 10*3/uL Neutrophils # 8.71 H (1.80-7.70) X 10*3/uL Eosinophils # 0.96 H (0.04-0.35) X 10*3/uL Sodium 148 H (135-145) mmol/L Chloride 112 H (96-109) mmol/L BUN 32.2 H (9.0-27.0) mg/dL BUN/Creatinine Ratio 26.83 H (12.00-20.00) Ratio AST 43 H (14-35) U/L Albumin 3.5 L (3.8-4.9) g/dL Albumin/Globulin Ratio 1.13 L (1.60-3.17) Ratio Microbiology - Last 24 Hours (Table) 09/19/23 01:50 CSF Gram Stain - Final Cerebral Spinal Fluid CSF Culture - Final 09/17/23 14:10 Blood Culture - Final Blood Comments: Modified barium swallow reports positive for aspiration. Assessment and Plan (1) Aspiration into airway Narrative/Plan: 68-year-old man who had presented with altered mental status changes, aphasia and left upper extremity weakness was diagnosed with acute ischemic stroke. As part of his evaluation underwent DEB where the probe could not be passed through the esophagus. Concerns for possible Zenker's diverticulum versus possible esophageal stricture. Patient had no prior history of difficulty with swallowing. Speech pathologist had seen patient and performed modified barium swallow with evidence of aspiration. Questioning possible esophageal versus pharyngeal etiology. Will plan for diagnostic upper endoscopy on Thursday. Due to patient being on Plavix and aspirin 325 mg daily will not be able to do dilation at this time if needed, and this was discussed with speech therapy. Current Visit: Yes Status: Acute Code(s): T17.908A - UNSP FB IN RESP TRACT, PART UNSP CAUSING OTH INJURY, INIT SNOMED Code(s): 801304301 (2) Acute ischemic stroke Current Visit: Yes Status: Acute Code(s): I63.9 - CEREBRAL INFARCTION, UNSPECIFIED SNOMED Code(s): 077545918 (3) Aphasia Current Visit: Yes Status: Acute Code(s): R47.01 - APHASIA SNOMED Code(s): 09694770 (4) Tobacco use Current Visit: Yes Status: Acute Code(s): Z72.0 - TOBACCO USE SNOMED Code(s): 847409648 Plan: 1. Continue symptomatic and supportive care 2. Keep patient n.p.o. as recommended by speech therapist 3. Would recommend holding Plavix if possible for upper endoscopy, however patient is recent acute ischemic stroke and will discuss further with neurology 4. Will plan for diagnostic upper endoscopy on Thursday Thank you for this consultation, we will continue to follow. Dr. Ryan Perez I agree with the dictator's note, documented as a scribe by Feli Baig.
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
[2023-09-24 10:32] LABS: Basophils # (A) 0.08 X 10*3/uL (0.00-0.10); Basophils % (A) 0.7 %; Eosinophils # (A) 0.78 X 10*3/uL (0.04-0.35); Eosinophils % (A) 6.6 %; HGB 13.5 g/dL (13.0-17.0); Lymphocytes # (A) 1.51 X 10*3/uL (0.90-5.00); Lymphocytes % (A) 12.9 %; MCH 32.2 pg (27.0-32.0); MCHC 31.4 g/dL (32.0-37.0); MCV 102.6 FL (80.0-97.0); Mean Platelet Volume 12.5 FL (9.5-12.2); Monocytes # (A) 0.75 X 10*3/uL (0.20-1.00); Monocytes % (A) 6.4 %; NRBC Per 100 WBC 0 X 10*3/uL (0.00-0.01); Neutrophils # (A) 8.54 X 10*3/uL (1.80-7.70); Neutrophils % (A) 72.8 %; Platelet Count 223 X 10*3/uL (140-440); RBC 4.19 X 10*6/uL (4.40-5.60); RDW 13.4 % (11.5-14.5); WBC 11.73 X 10*3/uL (4.50-10.00)
[2023-09-24 10:54] LABS: ALT 45 U/L (10-49); AST 34 U/L (14-35); Albumin 3.5 g/dL (3.8-4.9); Albumin/Globulin Ratio 1.17 Ratio (1.60-3.17); Alkaline Phosphatase 67 U/L (41-126); BUN/Creat Ratio 22.25 Ratio (12.00-20.00); Blood Urea Nitrogen 26.7 mg/dL (9.0-27.0); Calcium 9.3 mg/dL (8.7-10.3); Carbon Dioxide 26.1 mmol/L (21.6-31.8); Chloride 108 mmol/L (96-109); Glucose 90 mg/dL (70-110); Sodium 146 mmol/L (135-145); Total Bilirubin 0.8 mg/dL (0.3-1.2); Total Protein 6.5 g/dL (6.2-8.2)
[2023-09-24] MEDS: FLUCONAZOLE IN NACL,ISO-OSM 200 MG in SALINE 1 100ML.BAG IVPB SCH (12:38)
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
--- NOTE | 2023-09-24 14:45 | P.PN ---
Subjective Progress Note Date: 09/24/23 Patient is a 68-year-old white male with unknown past medical history. Patient is currently aphasic and unable to provide any information. Apparently, patient was noted to be acting abnormal by his neighbor earlier yesterday afternoon. He reportedly had left arm weakness/neglect. Unknown last well time. Patient was brought into the emergency room by EMS 09/15/2023. While in the emergency room, he did reportedly have seizure-like activity, which was terminated with 1 mg of Ativan. He was also loaded with 1500 mg of Keppra and started on Keppra 500 mg twice a day. CT of the brain did not show any acute intracranial process. No intracranial hemorrhage or mass effect. Brain CTA of head and neck did not show evidence of dissection of the cervical internal carotid arteries or vertebral arteries or any evidence of significant stenosis at the carotid bifurcations. No evidence of intracranial high-grade stenosis or intracranial aneurysm. No reported fevers. Urine toxicology screen negative. Serum alcohol less than 10. On my evaluation, the patient is alert. He is completely aphasic. No facial asymmetry. He will track me with his eyes around the bed. He does not follow commands. He is moving all 4 extremities. No observable hemiparesis/plegia. No noted seizure-like activity. Earlier he was reportedly restless and agitated. Given one time dose of Geodon and started on Seroquel. Blood pressure is hypertensive, recorded as high as 205/125. As needed hydralazine was added, and blood pressures improved to 165/82. EKG done on arrival consistent with sinus tachycardia. No obvious acute ischemic changes. Most recent CBC from yesterday: WBC count 12.7, hemoglobin 13.9, hematocrit 43.5, platelets 170. BMP from admission: Sodium 137, potassium 4.2, chloride 106, serum bicarb 21, BUN 18, creatinine 1.14, glucose 118. LFTs not elevated. Troponins 0.015 and 0.027 respectively. We were consulted for ICU evaluation. Patient does not necessarily need ICU management at this time. No further seizure activity. hemodynamically is stable. Follow-up brain MRI pending. Patient started on aspirin and statin. Prognosis is certainly guarded. On today's evaluation of 09/18/2023, the patient is being seen for a follow-up. The patient seems to be much more comfortable and calm on today's evaluation is resting comfortably in bed. He remains on a combination of Rocephin and acyclovir. The plan is to proceed with a lumbar puncture this will be done by the seizure today. ID and urology are both on the case. He is on room air oxygen with a pulse ox of 99%. Rest of the blood work shows a WBC of 10.2 with a hemoglobin 15.4 and this was done yesterday. Electrolytes are all stable.EEG showed no significant abnormalities. No evidence of any epileptic foci.. On 09/19/2023, the patient is being seen for regular follow-up. He is able to communicate and answer a few questions although is still confused. Lumbar puncture was done and there is some mild elevation of the CSF protein at 77. The nucleated white cells are only at 1. No evidence of any RBCs in the CSF and MRI of the brain was completed and it showed an elevated of an ischemic stroke left parietal lobe deep white matter. No seizure activity has been noted. Neurology on the case. ID is on the case. He remains afebrile and hemodynamically stable. Pulse ox is 94% room air oxygen. 09/20/2023, the patient is being seen for a follow-up. Neurologically, the patient remains confused although he has been noted to be slightly more conservative. His overall mental status continues to wax and wane. Seems to be less restless and agitated on today's evaluation. Nevertheless, the patient developed ischemia. His oxygen requirements steadily went up and the patient is currently utilizing 15 L Ventimask with an FiO2 of 50%. Reviewed the chest x- ray from today and the patient has bilateral perihilar pulm infiltrates and possibility of underlying aspiration pneumonia cannot be completely ruled out. The patient was accordingly started on IV Zosyn. He is n.p.o. for now. IV fluids in the form of half-normal saline that is running at the rate of 100 cc an hour. White cell count of 12 with a hemoglobin 15.4 and a platelet count of 202. Sodium levels at 148, BUN is 25 with a creatinine of 1.38 and a bicarb level is at 21. IV acyclovir has been discontinued. IV Rocephin has been disco ntinued and the patient was started on IV Zosyn. On 09/21/2023, the patient is being seen for a follow-up. The patient is improved significantly. He is feeling better. He is currently on 60s of oxygen by nasal cannula with a pulse ox of 97%. He remains on IV Zosyn. No focal neurological deficits. WBC count is at 12.2 with a hemoglobin 15.4. Electrolytes from yesterday were noted. The patient is afebrile. The consensus is that the patient could have had a stroke involving the left occipital parietal region and there is also hyperintensity on the bilateral thalamus a right more than left. The patient was kept on aspirin and Plavix neurology is considering to repeat the MRI. In terms of respiratory status, he continues to have some cough and congestion and sputum. Nevertheless that, the oxygenation is improved. The patient is seen today September 22, 2023 in follow-up on the regular medical floor. He is awake and alert in no acute distress. He is sitting up in a chair. He is maintaining O2 saturation in the 90s on 5 L/min per nasal cannula. Plan is for DEB today. Previous spinal fluid revealed no growth. He is continued on Zosyn. NicoDerm patch in place. Remains on bronchodilators as needed. Lovenox for DVT prophylaxis. The patient is seen today September 23, 2023 in follow-up on the regular medical floor. He is currently sitting up in a chair. Awake and alert in no acute distress. He is maintaining O2 saturations in the 90s on 3 L/min per nasal cannula. His follow-up MRI of the brain revealed increased signal within the gyrus of the posterior right parietal lobe. This does have some extent along the sylvian fissure. Consider cortical infarct and ischemia. HSV was not detected. Cerebrospinal fluid cultures were negative. White count 11.9. Hemoglobin 13.7. Platelets 212. Sodium 148. Potassium 3.7. Bicarb 25. BUN 32. Creatinine 1.2. Glucose 106. Chest x-ray showed patchy interstitial changes especially in the midlung lower lungs showing slight improvement. Barium swallow is positive for aspiration. He is currently on Zosyn. Lovenox for DVT prophylaxis. Continued on Plavix and aspirin. NicoDerm patch in place. The patient is seen today September 24, 2023 in follow-up on the regular medical floor. He is awake and alert in no acute distress. Sitting up in a chair. Family is at the bedside. He is maintaining good O2 saturations in the upper 90s on 3 L/min per nasal cannula. He has been afebrile. His repeat MRI did reveal a moderate-sized area of acute ischemia over the right parietal and adjacent area of the temporal region. There is also an area of ischemia in the left subcortical white matter adjacent to the occipital horn. He has been maintained on Plavix, aspirin, statin. DEB was unable to be performed with some concerns regarding possible Zenker's diverticulum or other esophageal pathologies. The plan is for EGD tomorrow. White count 11.7. Hemoglobin 13.5. Platelets 223. Sodium 146. Potassium 4.0. Bicarb 26. BUN 27. Creatinine 1.2. Glucose 90. He remains on Zosyn, Lovenox for DVT prophylaxis, NicoDerm patch in place. Objective - Vital Signs Vital signs: Vital Signs Temp 97.9 F 09/24/23 07:39 Pulse 80 09/24/23 07:39 Resp 17 09/24/23 07:39 BP 167/97 09/24/23 07:39 Pulse Ox 100 09/24/23 08:30 FiO2 50 09/21/23 08:07 Intake & Output 09/23/23 09/24/23 09/24/23 18:59 06:59 18:59 Intake Total 240 0 Balance 240 0 Weight 86.183 kg Intake: Oral 240 0 Other: Voiding Method Urinal Bedside Commode Bedside Commode Diaper Urinal Urinal Incontinent Diaper Diaper # Voids 1 3 # Bowel Movements 1 - Exam GENERAL EXAM: Alert, 68-year-old male, on 3 L nasal cannula, in a chair, in no apparent distress. HEAD: Normocephalic. EYES: Normal reaction of pupils, equal size. NOSE: Clear with pink turbinates. THROAT: No erythema or exudates. NECK: No masses, no JVD. CHEST: No chest wall deformity. LUNGS: Equal air entry with few scattered rhonchi bilaterally. CVS: S1 and S2 normal with no audible murmur, regular rhythm. ABDOMEN: No hepatosplenomegaly, normal bowel sounds, no guarding or rigidity. SPINE: No scoliosis or deformity SKIN: No rashes CENTRAL NERVOUS SYSTEM: Some expressive aphasia, otherwise no focal deficits, tone is normal in all 4 extremities. EXTREMITIES: There is no peripheral edema. No clubbing, no cyanosis. Peripheral pulses are intact. - Labs CBC & Chem 7: 05/30/24 07:41 09/24/23 07:41 Labs: Abnormal Lab Results - Last 24 Hours (Table) 09/24/23 09/24/23 Range/Units 07:41 07:41 WBC 11.73 H (4.50-10.00) X 10*3/uL RBC 4.19 L (4.40-5.60) X 10*6/uL MCV 102.6 H (80.0-97.0) FL MCH 32.2 H (27.0-32.0) pg MCHC 31.4 L (32.0-37.0) g/dL MPV 12.5 H (9.5-12.2) FL Immature Gran # 0.07 H (0.00-0.04) X 10*3/uL Neutrophils # 8.54 H (1.80-7.70) X 10*3/uL Eosinophils # 0.78 H (0.04-0.35) X 10*3/uL Sodium 146 H (135-145) mmol/L BUN/Creatinine Ratio 22.25 H (12.00-20.00) Ratio Albumin 3.5 L (3.8-4.9) g/dL Albumin/Globulin Ratio 1.17 L (1.60-3.17) Ratio Assessment and Plan Assessment: Altered mental status, currently under investigation, CT of the brain did not show any acute intracranial process. No intracranial hemorrhage or mass effect. Brain CTA of head and neck did not show evidence of dissection of the cervical internal carotid arteries or vertebral arteries or any evidence of significant stenosis at the carotid bifurcations. No evidence of intracranial high-grade stenosis or intracranial aneurysm. No fevers. Toxicology screen negative. The lumbar puncture showed some mild elevation of the protein without any nucleated RBCs or evidence of bleeding. MRI of the brain 09/18/2023 showed abnormalities in the thalamus along with the left occipital parietal region. The patient is currently on statin, aspirin and Plavix. Neurologically improving. Follow-up MRI of the brain from 09/22/2023 revealed increased signal within the gyrus of the posterior right parietal lobe. This does have some extent along the sylvian fissure. Consider cortical infarct and ischemia. DEB was unable to be perf ormed due to inability to pass the scope down the esophagus. Possible Zenker's diverticulum or other esophageal abnormalities. Plan is for EGD tomorrow 09/25/2023 Seizure, possibly new onset. Follow-up EEG does not show any epileptiform discharge/seizure or focal slowing. The patient is currently on Vimpat Aphasia/dysphasia. Barium swallow positive for aspiration. Acute hypoxemic respiratory failure, currently on 3 L of oxygen nasal cannula, possible aspiration pneumonia, on IV Zosyn Hypertensive urgency, improved with as needed hydralazine Hyperlipidemia Suspect underlying chronic obstructive pulmonary disease, does not appear in exacerbation Chronic tobacco dependence reported Plan: The patient was seen and evaluated Labs and medications reviewed DEB unable to be performed Plan is for EGD tomorrow Titrate down the FiO2 as tolerated Remains on Zosyn We will continue to follow I have personally seen and examined the patient, performed the documentation and the assessment and plan as written. Number of minutes spent on the visit: 10.
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
--- NOTE | 2023-09-24 15:55 | P.PN ---
Subjective Progress Note Date: 09/23/23 Principal diagnosis: Reason for follow-up is encephalitis questionable herpes Patient is a 68-year-old male who was brought into the hospital for evaluation of mental status changes, patient also have a seizure activity and did have a negative workup for CVA with increasing confusion concern for possible encephalitis prompting this consultation. On today's evaluation that is 09/23/2023,the patient denies any fever or any chills, patient is breathing comfortably on 3 L nasal cannula oxygen, the patient denies chest pain shortness of breath and no significant cough, patient denies abdominal pain, no nausea vomiting or diarrhea. Patient white count is 11.91, creatinine is 1.2 Objective - Vital Signs Vital signs: Vital Signs Temp 98 F 09/23/23 13:30 Pulse 85 09/23/23 13:30 Resp 17 09/23/23 13:30 BP 145/86 09/23/23 13:30 Pulse Ox 98 09/23/23 13:30 FiO2 50 09/21/23 08:07 Intake & Output 09/22/23 09/23/23 09/23/23 18:59 06:59 18:59 Intake Total 100 240 Output Total 225 375 Balance -125 -375 240 Intake: IV 100 Oral 240 Output: Urine 225 375 Other: Voiding Method Urinal Urinal Diaper Diaper Incontinent Incontinent # Voids 1 # Bowel Movements 1 1 - Exam GENERAL DESCRIPTION: An elderly male lying in bed in no distress RESPIRATORY SYSTEM: Unlabored breathing , decreased breath sounds at bases HEART: S1 S2 regular rate and rhythm , ABDOMEN: Soft , no tenderness EXTREMITIES: No edema feet - Labs CBC & Chem 7: 09/24/23 07:41 09/24/23 07:41 Labs: Abnormal Lab Results - Last 24 Hours (Table) 09/23/23 09/23/23 Range/Units 07:10 07:10 WBC 11.91 H (4.50-10.00) X 10*3/uL RBC 4.22 L (4.40-5.60) X 10*6/uL MCV 101.7 H (80.0-97.0) FL MCH 32.5 H (27.0-32.0) pg MCHC 31.9 L (32.0-37.0) g/dL MPV 12.6 H (9.5-12.2) FL Immature Gran # 0.08 H (0.00-0.04) X 10*3/uL Neutrophils # 8.71 H (1.80-7.70) X 10*3/uL Eosinophils # 0.96 H (0.04-0.35) X 10*3/uL Sodium 148 H (135-145) mmol/L Chloride 112 H (96-109) mmol/L BUN 32.2 H (9.0-27.0) mg/dL BUN/Creatinine Ratio 26.83 H (12.00-20.00) Ratio AST 43 H (14-35) U/L Albumin 3.5 L (3.8-4.9) g/dL Albumin/Globulin Ratio 1.13 L (1.60-3.17) Ratio Microbiology - Last 24 Hours (Table) 09/19/23 01:50 CSF Gram Stain - Final Cerebral Spinal Fluid CSF Culture - Final 09/17/23 14:10 Blood Culture - Final Blood Assessment and Plan (1) Encephalopathy acute Current Visit: Yes Status: Acute Code(s): G93.40 - ENCEPHALOPATHY, UNSPECIFIED SNOMED Code(s): 59660371 (2) Aspiration pneumonia Current Visit: Yes Status: Acute Code(s): J69.0 - PNEUMONITIS DUE TO INHALATION OF FOOD AND VOMIT SNOMED Code(s): 575958260 Plan: 1patient does not hospital mental status changes likely multifactorial patient did have a seizure activity has been new for him also noticed to have elevated blood pressure concern for possible hypertensive encephalopathy question of encephalitis less likely as the patient not running fever did have mild elevated white count yesterday has normalized subsequently however not entirely excluded, patient did have LP completed only 1 WBC glucose normal protein only 77 not behaving as meningitis or encephalitis, patient also have abnormal MRI with ischemic changes could be responsible for his mental status changes, patient did have a negative CSF examination, HSV DNA by PCR is pending clinically not behav ing as herpes encephalitis hence recommending no acyclovir discussed with admitting physician yesterday 2patient with possible aspiration pneumonitis, for which the patient did have improvement in respiratory status and will continue Zosyn and monitor clinical course closely Dictation was produced using [employer] dictation software. please excuse any grammatical, word or spelling errors. Time with Patient: Less than 30
--- NOTE | 2023-09-24 15:56 | P.PN ---
Subjective Progress Note Date: 09/24/23 Principal diagnosis: Reason for follow-up is aspiration pneumonitis and thrush Patient is a 68-year-old male who was brought into the hospital for evaluation of mental status changes, patient also have a seizure activity and did have a negative workup for CVA with increasing confusion concern for possible encephalitis prompting this consultation. On today's evaluation that is 09/24/2023,the patient remains to be afebrile, patient is on 3 L nasal cannula supplemental oxygen and denies any shortness of breath no chest pain or any worsening cough.Patient denies having any nausea or vomiting, no abdominal pain and no diarrhea has been reported. Patient white count is 11.73, creatinine is 1.2, CSF HSV DNA by PCR negative Objective - Vital Signs Vital signs: Vital Signs Temp 97.9 F 09/24/23 07:39 Pulse 80 09/24/23 07:39 Resp 17 09/24/23 07:39 BP 167/97 09/24/23 07:39 Pulse Ox 100 09/24/23 08:30 FiO2 50 09/21/23 08:07 Intake & Output 09/23/23 09/24/23 09/24/23 18:59 06:59 18:59 Intake Total 240 0 Balance 240 0 Weight 86.183 kg Intake: Oral 240 0 Other: Voiding Method Urinal Bedside Commode Diaper Urinal Incontinent Diaper # Voids 1 3 # Bowel Movements 1 - Exam GENERAL DESCRIPTION: An elderly male lying in bed in no distress RESPIRATORY SYSTEM: Unlabored breathing , decreased breath sounds at bases HEART: S1 S2 regular rate and rhythm , ABDOMEN: Soft , no tenderness EXTREMITIES: No edema feet - Labs CBC & Chem 7: 09/24/23 07:41 09/24/23 07:41 Labs: Abnormal Lab Results - Last 24 Hours (Table) 09/24/23 09/24/23 Range/Units 07:41 07:41 WBC 11.73 H (4.50-10.00) X 10*3/uL RBC 4.19 L (4.40-5.60) X 10*6/uL MCV 102.6 H (80.0-97.0) FL MCH 32.2 H (27.0-32.0) pg MCHC 31.4 L (32.0-37.0) g/dL MPV 12.5 H (9.5-12.2) FL Immature Gran # 0.07 H (0.00-0.04) X 10*3/uL Neutrophils # 8.54 H (1.80-7.70) X 10*3/uL Eosinophils # 0.78 H (0.04-0.35) X 10*3/uL Sodium 146 H (135-145) mmol/L BUN/Creatinine Ratio 22.25 H (12.00-20.00) Ratio Albumin 3.5 L (3.8-4.9) g/dL Albumin/Globulin Ratio 1.17 L (1.60-3.17) Ratio Microbiology - Last 24 Hours (Table) 09/19/23 01:50 CSF Gram Stain - Final Cerebral Spinal Fluid CSF Culture - Final Assessment and Plan (1) Encephalopathy acute Current Visit: Yes Status: Acute Code(s): G93.40 - ENCEPHALOPATHY, UNSPECIFIED SNOMED Code(s): 58254094 (2) Aspiration pneumonia Current Visit: Yes Status: Acute Code(s): J69.0 - PNEUMONITIS DUE TO INHALATION OF FOOD AND VOMIT SNOMED Code(s): 740767538 Plan: 1patient does not hospital mental status changes likely multifactorial patient did have a seizure activity has been new for him also noticed to have elevated blood pressure concern for possible hypertensive encephalopathy question of encephalitis less likely as the patient not running fever did have mild elevated white count yesterday has normalized subsequently however not entirely excluded, patient did have LP completed only 1 WBC glucose normal protein only 77 not behaving as meningitis or encephalitis, patient also have abnormal MRI with ischemic changes could be responsible for his mental status changes, patient did have a negative CSF examination, HSV DNA by PCR is negative that will make HSV encephalitis to be less likely no need for acyclovir 2patient with possible aspiration pneumonitis, for which the patient did have improvement in respiratory status and currently covered with the Zosyn 3extensive thrush and did have difficulty in swallowing, patient has been started on IV Diflucan and will see response Family at the bedside questions answered Dictation was produced using [employer] software. please excuse any grammatical, word or spelling errors. Time with Patient: Less than 30
--- NOTE | 2023-09-24 16:57 | P.PN ---
Subjective Progress Note Date: 09/24/23 Principal diagnosis: Stroke, dysphagia, aspiration This is a pleasant 68-year-old male who was brought into the hospital for concerns for altered mental status changes with left-sided weakness and aphasia. Past medical history includes heavy daily smoker, but no other history r eported. Apparently patient does not follow with primary care physician. Apparently patient had some seizure activity when he was brought into the emergency department. Patient was admitted and worked up for stroke evaluation. He is diagnosed with acute ischemic stroke of left occipital/parietal lobe. Neurology had recommended a DEB as part of the evaluation. Cardiology attempted to perform DEB on however could not be completed according to the DEB report the probe was able to enter the esophagus without any difficulty but could not be passed beyond the upper esophagus to reach the midesophagus. The probe was withdrawn and the study was aborted. Gastroenterology was consulted for concern for possible Zenker's diverticulum or other esophageal pathologies. Patient is sitting up at the bedside in his chair. His sister is present. He is still having episodes of confusion. Speech appears fluent does report still some left upper extremity weakness. He was on a regular breakfast and had been noted that he was having coughing episodes with pancakes and sausage this morning. He underwent a modified barium swallow that showed aspiration. Gastroenterology was consulted for endoscopic evaluation. Patient and his sister both state that he had no prior difficulties with swallowing, no pain with swallowing and no previous problems with choking. 09/24/2023 Patient seen and examined today as a follow-up. His sister and are at the bedside. This morning patient is having some slurring of his speech which is different from yesterday. He remains NPO. He denies any abdominal pain, nausea or vomiting. agrees that he has not had any difficulty with swallowing prior to the stroke. No pain with swallowing or history of choking. Spoke to and bradycardia with speech pathology yesterday and explained that to the family regarding we can proceed with diagnostic upper endoscopy only due to patient has been on Plavix. Objective - Vital Signs Vital signs: Vital Signs Temp 97.9 F 09/24/23 07:39 Pulse 80 09/24/23 07:39 Resp 17 09/24/23 07:39 BP 167/97 09/24/23 07:39 Pulse Ox 100 09/24/23 08:30 FiO2 50 09/21/23 08:07 Intake & Output 09/23/23 09/24/23 09/24/23 18:59 06:59 18:59 Intake Total 240 0 Balance 240 0 Weight 86.183 kg Intake: Oral 240 0 Other: Voiding Method Urinal Bedside Commode Diaper Urinal Incontinent Diaper # Voids 1 3 # Bowel Movements 1 - Exam General appearance: The patient is alert, oriented, appears in no acute distress. HET: Head is normocephalic and atraumatic. Conjunctiva pink. Sclera anicteric. Neck: Supple without lymphadenopathy. Abdomen: Soft, nontender, nondistended. Extremities: Normal skin color and turgor. No pedal edema Skin: No rashes, no jaundice Neurological: Slurred speech, appears more oriented today. - Labs CBC & Chem 7: 09/24/23 07:41 09/24/23 07:41 Labs: Abnormal Lab Results - Last 24 Hours (Table) 09/23/23 09/23/23 Range/Units 07:10 07:10 WBC 11.91 H (4.50-10.00) X 10*3/uL RBC 4.22 L (4.40-5.60) X 10*6/uL MCV 101.7 H (80.0-97.0) FL MCH 32.5 H (27.0-32.0) pg MCHC 31.9 L (32.0-37.0) g/dL MPV 12.6 H (9.5-12.2) FL Immature Gran # 0.08 H (0.00-0.04) X 10*3/uL Neutrophils # 8.71 H (1.80-7.70) X 10*3/uL Eosinophils # 0.96 H (0.04-0.35) X 10*3/uL Sodium 148 H (135-145) mmol/L Chloride 112 H (96-109) mmol/L BUN 32.2 H (9.0-27.0) mg/dL BUN/Creatinine Ratio 26.83 H (12.00-20.00) Ratio AST 43 H (14-35) U/L Albumin 3.5 L (3.8-4.9) g/dL Albumin/Globulin Ratio 1.13 L (1.60-3.17) Ratio Microbiology - Last 24 Hours (Table) 09/19/23 01:50 CSF Gram Stain - Final Cerebral Spinal Fluid CSF Culture - Final Assessment and Plan (1) Aspiration into airway Narrative/Plan: 68-year-old man who had presented with altered mental status changes, aphasia and left upper extremity weakness was diagnosed with acute ischemic stroke. As part of his evaluation underwent DEB where the probe could not be passed through the esophagus. Concerns for possible Zenker's diverticulum versus possible esophageal stricture. Patient had no prior history of difficulty with sw allowing. Speech pathologist had seen patient and performed modified barium swallow with evidence of aspiration. Questioning possible esophageal versus pharyngeal etiology. Will plan for diagnostic upper endoscopy on Thursday. Due to patient being on Plavix and aspirin 325 mg daily will not be able to do dilation at this time if needed, and this was discussed with speech therapy. Current Visit: Yes Status: Acute Code(s): T17.908A - UNSP FB IN RESP TRACT, PART UNSP CAUSING OTH INJURY, INIT SNOMED Code(s): 302938615 (2) Acute ischemic stroke Current Visit: Yes Status: Acute Code(s): I63.9 - CEREBRAL INFARCTION, UNSPECIFIED SNOMED Code(s): 993516394 (3) Aphasia Current Visit: Yes Status: Acute Code(s): R47.01 - APHASIA SNOMED Code(s): 57460193 (4) Tobacco use Current Visit: Yes Status: Acute Code(s): Z72.0 - TOBACCO USE SNOMED Code(s): 357922676 Plan: 1. Continue symptomatic and supportive care 2. Keep patient n.p.o. as recommended by speech therapist 3. Continue to hold Plavix if okay with neurology 4. Will plan for diagnostic upper endoscopy tomorrow. Procedure discussed with patient and family at the bedside and they are agreeable to proceed. Thank you for this consultation, we will continue to follow. Dr. Ryan Perez I agree with the dictator's note, documented as a scribe by Feli Baig.
[2023-09-24] MEDS: Lacosamide IV (ages 17+ yrs) 200 MG/20 ML ML IVP STA (17:16)
[2023-09-24] MEDS: ZIPRASIDONE 20 MG VIAL IM PRN (18:35)
[2023-09-24] MEDS: Lacosamide IV (ages 17+ yrs) 200 MG/20 ML ML IVP SCH (20:54)
[2023-09-24] MEDS: ATORVASTATIN 80 MG TAB PO SCH (20:55)
[2023-09-25] MEDS ORDERED: PROPOFOL 10 MG/ML 20 ML VIAL IV ONE (08:05)
[2023-09-25] MEDS: IV FLUID CONTINUATION 1,000 ML IV ONE ×2 (08:07→08:14)
--- NOTE | 2023-09-25 09:03 | P.PCN ---
Date of Procedure: 09/25/23 Procedure(s) Performed: BRIEF HISTORY: Patient is a 68-year-old, pleasant, white male admitted to hospital few days ago with a CVA and was noted to have some oropharyngeal dysphagia. Had a modified barium swallow that showed evidence of aspiration but also questionable esophageal stricture. He has not scheduled an upper endoscopy to evaluate further r PROCEDURE PERFORMED: Esophagogastroduodenoscopy. PREOPERATIVE DIAGNOSIS: Dysphagia. IV sedation per anesthesia. PROCEDURE: After informed consent was obtained, the patient was brought into the endoscopy unit. IV sedation was administered by Anesthesia under continuous monitoring. Initially the Olympus GIF-140 video endoscope was inserted into the mouth. Esophagus intubated without any difficulty. It was gradually advanced into the stomach and duodenum and carefully examined. The bulb and the second part of the duodenum appeared normal. The scope at this time was withdrawn to the stomach, adequately insufflated with air, and upon careful examination, mucosa of the antrum, body, mild gastritis. Because of the cardia and the fundus appeared normal. The scope was then withdrawn into the esophagus. The GE junction was located at 39 cm from the incisors. The esophagus appeared normal. There were no erosions or ulcerations seen and the patient tolerated the procedure well. IMPRESSION: 1. Normal-appearing esophagus with no evidence of esophagitis or esophageal stricture. 2. Mild antral gastritis. RECOMMENDATIONS: The findings of this examination were discussed with the patient as well as his family. It is very likely that oropharyngeal dysphagia is related to recent CVA. Will discuss with neurology and based on recommenda tions will consider diet modification versus PEG tube placement..
--- NOTE | 2023-09-25 09:19 | P.PN ---
Progress Note - Text Progress Note Date: 09/25/23 Patient underwent upper endoscopy today with findings of normal-appearing esophagus with no evidence of esophagitis or esophageal stricture. Mild antral gastritis. Findings were discussed with the speech pathologist Ann. Also discussed that if patient will require PEG tube related to oral pharyngeal dysphagia secondary to recent CVA patient will need to be off Plavix for 5 days duration. This will be discussed with neurology. Speech pathology will reevaluate patient today and give their recommendations. There will be no gastroenterology available this weekend. We will follow-up on Thursday. Dr. Ryan Perez I agree with the dictator's note, documented as a scribe by Feli Baig.
--- NOTE | 2023-09-25 09:57 | P.PN ---
Subjective Progress Note Date: 09/25/23 This is a 68-year-old male patient of Dr. Solis who presented to the ERWith concerns of altered mental status changes. According to at bedside Patient was found driving around confused EMS was called and upon exam patient was having difficulty following basic commands but was able to move all 4 ex tremities.According to upon arrival to ER patient did have witnessed seizure. Patient does not have a history of seizure and no other significant medical history except nicotine dependence. Patient does drink a couple beers a night according to patient has not drink a lot over the past month. Patient was treated for vertigo approximately 1 month ago But no other significant history noted. No recent change to diet or medication. Head CT was completed showing no acute intracranial process. Nonspecific white matter changes likely secondary to chronic small vessel ischemic disease.CT angiogram completed showing no evidence of dissection of the cervical internal carotid arteries or vertebral arteries are any evidence of significant stenosis of the carotid bifurcations. No evidence of intracranial high-grade stenosis or intracranial aneurysm.Chest x-ray completed showing no acute cardiopulmonary disease no changes.At this time patient remains confused does not follow commands. Patient was started on Keppra per ER. At this time neurology service is consulted. MRI of the brain and EEG has been ordered. 2-D echocardiogram ordered. Repeat labs ordered. PT OT and speech service is consulted. Current vital signs temp 98.3, heart rate 83, respiratory rate 18, blood pressure 148/92 with pulse ox 97%. on 09/17/2023 patient was seen and examined he remains in the ER awaiting bed availability, patient mental status remains abnormal he is still confused and slightly agitated, at this time infectious disease consultation was requested in regard to possible acute encephalitis, patient was started on IV acyclovir, he was also started on IV ceftriaxone for urinary tract infection, neurology, critical care, and infectious disease consult are following, consult for and his Tesio was initiated for lumbar puncture On 09/18/2023 patient is currently resting in bed appears more calm than yesterday per family at bedside. Patient was started on acyclovir and Rocephin. Infectious disease, critical care neurology services are Consulted. Possible plans for lumbar puncture. Current vital signs temp 97.8, heart rate 96, blood pressure 142/83 with pulse ox 99% on room air On 09/19/2023 patient was seen and examined on the medical floor he is currently resting in bed appears more calm than yesterday per family at bedside. he is answering a few questions appropriately. Patient was started on acyclovir and Rocephin. Infectious disease, critical care neurology services are Consulted. lumbar puncture done and results reviewed, no evidence of bacterial infection, awaiting results on her face antibodies, MRI was done and reveals an area of acute stroke, patient was seen and examined by neurology, he is improving gradually. on 09/20/2023 patient was seen and examined on the medical floor, he is alert responsive in no apparent distress, he is answering a few questions appropriately, through the night patient had worsening respiratory status with decreasing O2 sat duration, chest x-ray revealed bilateral infiltrate, patient is Now on strict nothing by mouth, he is maintained on IV fluid, IV Rocephin was discontinued and he was started on IV Zosyn for possible aspiration pneumonia, mental the patient is improving he is still significantly confused, pulmonary critical care, infectious disease and neurology are following. on 09/21/2023 patient was seen and examined on the medical floor, he is more alert and responsive today, he is sitting up in a chair, he is still maintained on oxygen via facial mask FiO2 of 50%, he is complaining of cough with sputum production, he is having generalized tremor, otherwise he denies any complaints there is no fever or chills no headache or dizziness no chest pain no shortness of breath no nausea or vomiting no abdominal pain no diarrhea no blood in the stools no burning with urination no frequency or urgency no hematuria, input from pulmonary and neurology reviewed. On 09/21/2022 4 patient is alert and more responsive today sitting up in chair. Patient on nasal cannula 5 L family at bedside. MRI and DEB has been ordered. Repeat chest x-ray also ordered. Patient denies chest pain or shortness of angie ath. Patient denies nausea vomiting or diarrhea. Patient denies any urinary burning or frequency On 09/23/2023 patient is alert and oriented 2. Nasal cannula 3 L. DEB was unsuccessful recommending possible GI workup to rule out diverticulum. Speech therapy also recommending modified barium swallow. PT OT service is consulted. Current vital signs temp 98.3, heart rate 81, respiratory rate 17, blood pressure 153/70, pulse ox 97% on 3 LPatient denies chest pain or shortness of breath. Patient denies nausea vomiting or diarrhea. Patient denies any urinary burning or frequency on 09/24/2023 patient was seen and examined on the medical floor he is alert and oriented 3 in no apparent distress, there is no fever or chills no headache or dizziness no chest pain no shortness of breath no cough no nausea or vomiting no abdominal pain no diarrhea and no urinary symptoms. Patient failed swallow evaluation, patient is scheduled for EGD tomorrow, he has evidence of severe oral candidiasis, he was started on IV Diflucan, will continue to follow closely On 09/25/2023 patient's alert and oriented 3 currently sitting up in chair. Per family at bedside patient had episode of increased confusion yesterday. Patient underwent EGD this a.m. showing normal-appearing esophagus with no shira dence of esophagitis or esophageal stricture. patient to be reevaluated by speech services. Awaiting further recognitions from neurology services. At this time patient denies chest pain or shortness breath. Patient denies nausea vomiting or diarrhea. Patient denies any urinary burning or frequency Objective - Vital Signs Vital signs: Vital Signs Temp 98.1 F 09/25/23 08:29 Pulse 90 09/25/23 09:13 Resp 17 09/25/23 08:29 BP 165/85 09/25/23 09:13 Pulse Ox 96 09/25/23 09:13 FiO2 50 09/21/23 08:07 Intake & Output 09/24/23 09/25/23 09/25/23 18:59 06:59 18:59 Intake Total 900 50 Output Total 1350 Balance -450 50 Intake: IV 50 Intake, IV Titration 900 Amount Piperacillin-Tazobactam 3 100 .375 gm In Sodium Chloride 0.9% 100 ml @ 25 mls/hr IVPB Q8HR [facility] Rx# :[id number] Sodium Chloride 0.45% 1, 800 000 ml @ 100 mls/hr IV . Q10H [facility] Rx#:[id number] Output: Urine 1350 Other: Voiding Method Bedside Commode Bedside Commode Urinal Urinal Diaper Diaper # Voids 2 - Exam in general patient is alert responsive confused in no apparent distress Head normocephalic and atraumatic Neck suppleno JVD no goiter Lungs clear to auscultation bilaterally no wheezing or crackles Heart regular rate and rhythm S1-S2, no rub or gallop Abdomen is soft nontender nondistended positive bowel sounds no hepatosplenomegaly Extremities no edema Neuro alert and orientated to 0.. Patient is confused and not following commands - Labs CBC & Chem 7: 09/24/23 07:41 09/24/23 07:41 Labs: Abnormal Lab Results - Last 24 Hours (Table) 09/24/23 09/24/23 Range/Units 07:41 07:41 WBC 11.73 H (4.50-10.00) X 10*3/uL RBC 4.19 L (4.40-5.60) X 10*6/uL MCV 102.6 H (80.0-97.0) FL MCH 32.2 H (27.0-32.0) pg MCHC 31.4 L (32.0-37.0) g/dL MPV 12.5 H (9.5-12.2) FL Immature Gran # 0.07 H (0.00-0.04) X 10*3/uL Neutrophils # 8.54 H (1.80-7.70) X 10*3/uL Eosinophils # 0.78 H (0.04-0.35) X 10*3/uL Sodium 146 H (135-145) mmol/L BUN/Creatinine Ratio 22.25 H (12.00-20.00) Ratio Albumin 3.5 L (3.8-4.9) g/dL Albumin/Globulin Ratio 1.17 L (1.60-3.17) Ratio Assessment and Plan Assessment: 1. altered mental status changes likely secondary from acute ischemic stroke 2. Witnessed seizure in ER patient was started on Keppra 3. Episode of vertigo approximately 1 month ago 4. Nicotine dependence 5. Pneumonia patient started on IV Zosyn At this time patient will be admitted Neurology services consulted, pulmonary and infectious disease service is following status post EGD repeat EEG has been ordered per neurology Normal saline at 100 ordered PT OT and speech service is consulted
--- NOTE | 2023-09-25 10:55 | XR ---
EXAMINATION TYPE: XR chest 1V portable DATE OF EXAM: 09/25/2023 COMPARISON: 09/14/2023 INDICATION: Aspiration TECHNIQUE: Single frontal view of the chest is obtained. FINDINGS: The heart size is normal. The pulmonary vasculature is normal. The lungs are clear. No suspicious changes to suggest aspiration apparent at this time. Spondylosis within the mid thoracic spine. IMPRESSION: 1. No acute pulmonary process.
--- NOTE | 2023-09-25 13:25 | FL ---
COMPARISON: NONE DATE OF EXAM: 09/25/2023 HISTORY: Dysphasia A number of thin and thick substances were ingested under the care of the department of speech pathol ogy. There is evidence of aspiration or penetration with honey and nectar. No other substances wer e given to the patient. There is vallecular and piriform sinus pooling. DAP are not provided. Fluoroscopy of 1 minute was provided. No images submitted. IMPRESSION: 1. No evidence of aspiration or penetration.
--- NOTE | 2023-09-25 15:24 | P.PN ---
Subjective Progress Note Date: 09/25/23 Patient is a 68-year-old white male with unknown past medical history. Patient is currently aphasic and unable to provide any information. Apparently, patient was noted to be acting abnormal by his neighbor earlier yesterday afternoon. He reportedly had left arm weakness/neglect. Unknown last well time. Patient was brought into the emergency room by EMS 09/15/2023. While in the emergency room, he did reportedly have seizure-like activity, which was terminated with 1 mg of Ativan. He was also loaded with 1500 mg of Keppra and started on Keppra 500 mg twice a day. CT of the brain did not show any acute intracranial process. No intracranial hemorrhage or mass effect. Brain CTA of head and neck did not show evidence of dissection of the cervical internal carotid arteries or vertebral arteries or any evidence of significant stenosis at the carotid bifurcations. No evidence of intracranial high-grade stenosis or intracranial aneurysm. No reported fevers. Urine toxicology screen negative. Serum alcohol less than 10. On my evaluation, the patient is alert. He is completely aphasic. No facial asymmetry. He will track me with his eyes around the bed. He does not follow commands. He is moving all 4 extremities. No observable hemiparesis/plegia. No noted seizure-like activity. Earlier he was reportedly restless and agitated. Given one time dose of Geodon and started on Seroquel. Blood pressure is hypertensive, recorded as high as 205/125. As needed hydralazine was added, and blood pressures improved to 165/82. EKG done on arrival consistent with sinus tachycardia. No obvious acute ischemic changes. Most recent CBC from yesterday: WBC count 12.7, hemoglobin 13.9, hematocrit 43.5, platelets 170. BMP from admission: Sodium 137, potassium 4.2, chloride 106, serum bicarb 21, BUN 18, creatinine 1.14, glucose 118. LFTs not elevated. Troponins 0.015 and 0.027 respectively. We were consulted for ICU evaluation. Patient does not necessarily need ICU management at this time. No further seizure activity. hemodynamically is stable. Follow-up brain MRI pending. Patient started on aspirin and statin. Prognosis is certainly guarded. On today's evaluation of 09/18/2023, the patient is being seen for a follow-up. The patient seems to be much more comfortable and calm on today's evaluation is resting comfortably in bed. He remains on a combination of Rocephin and acyclovir. The plan is to proceed with a lumbar puncture this will be done by the seizure today. ID and urology are both on the case. He is on room air oxygen with a pulse ox of 99%. Rest of the blood work shows a WBC of 10.2 with a hemoglobin 15.4 and this was done yesterday. Electrolytes are all stable.EEG showed no significant abnormalities. No evidence of any epileptic foci.. On 09/19/2023, the patient is being seen for regular follow-up. He is able to communicate and answer a few questions although is still confused. Lumbar puncture was done and there is some mild elevation of the CSF protein at 77. The nucleated white cells are only at 1. No evidence of any RBCs in the CSF and MRI of the brain was completed and it showed an elevated of an ischemic stroke left parietal lobe deep white matter. No seizure activity has been noted. Neurology on the case. ID is on the case. He remains afebrile and hemodynamically stable. Pulse ox is 94% room air oxygen. 09/20/2023, the patient is being seen for a follow-up. Neurologically, the patient remains confused although he has been noted to be slightly more conservative. His overall mental status continues to wax and wane. Seems to be less restless and agitated on today's evaluation. Nevertheless, the patient developed ischemia. His oxygen requirements steadily went up and the patient is currently utilizing 15 L Ventimask with an FiO2 of 50%. Reviewed the chest x- ray from today and the patient has bilateral perihilar pulm infiltrates and possibility of underlying aspiration pneumonia cannot be completely ruled out. The patient was accordingly started on IV Zosyn. He is n.p.o. for now. IV fluids in the form of half-normal saline that is running at the rate of 100 cc an hour. White cell count of 12 with a hemoglobin 15.4 and a platelet count of 202. Sodium levels at 148, BUN is 25 with a creatinine of 1.38 and a bicarb level is at 21. IV acyclovir has been discontinued. IV Rocephin has been disco ntinued and the patient was started on IV Zosyn. On 09/21/2023, the patient is being seen for a follow-up. The patient is improved significantly. He is feeling better. He is currently on 60s of oxygen by nasal cannula with a pulse ox of 97%. He remains on IV Zosyn. No focal neurological deficits. WBC count is at 12.2 with a hemoglobin 15.4. Electrolytes from yesterday were noted. The patient is afebrile. The consensus is that the patient could have had a stroke involving the left occipital parietal region and there is also hyperintensity on the bilateral thalamus a right more than left. The patient was kept on aspirin and Plavix neurology is considering to repeat the MRI. In terms of respiratory status, he continues to have some cough and congestion and sputum. Nevertheless that, the oxygenation is improved. The patient is seen today September 22, 2023 in follow-up on the regular medical floor. He is awake and alert in no acute distress. He is sitting up in a chair. He is maintaining O2 saturation in the 90s on 5 L/min per nasal cannula. Plan is for DEB today. Previous spinal fluid revealed no growth. He is continued on Zosyn. NicoDerm patch in place. Remains on bronchodilators as needed. Lovenox for DVT prophylaxis. The patient is seen today September 23, 2023 in follow-up on the regular medical floor. He is currently sitting up in a chair. Awake and alert in no acute distress. He is maintaining O2 saturations in the 90s on 3 L/min per nasal cannula. His follow-up MRI of the brain revealed increased signal within the gyrus of the posterior right parietal lobe. This does have some extent along the sylvian fissure. Consider cortical infarct and ischemia. HSV was not detected. Cerebrospinal fluid cultures were negative. White count 11.9. Hemoglobin 13.7. Platelets 212. Sodium 148. Potassium 3.7. Bicarb 25. BUN 32. Creatinine 1.2. Glucose 106. Chest x-ray showed patchy interstitial changes especially in the midlung lower lungs showing slight improvement. Barium swallow is positive for aspiration. He is currently on Zosyn. Lovenox for DVT prophylaxis. Continued on Plavix and aspirin. NicoDerm patch in place. The patient is seen today September 24, 2023 in follow-up on the regular medical floor. He is awake and alert in no acute distress. Sitting up in a chair. Family is at the bedside. He is maintaining good O2 saturations in the upper 90s on 3 L/min per nasal cannula. He has been afebrile. His repeat MRI did reveal a moderate-sized area of acute ischemia over the right parietal and adjacent area of the temporal region. There is also an area of ischemia in the left subcortical white matter adjacent to the occipital horn. He has been maintained on Plavix, aspirin, statin. DEB was unable to be performed with some concerns regarding possible Zenker's diverticulum or other esophageal pathologies. The plan is for EGD tomorrow. White count 11.7. Hemoglobin 13.5. Platelets 223. Sodium 146. Potassium 4.0. Bicarb 26. BUN 27. Creatinine 1.2. Glucose 90. He remains on Zosyn, Lovenox for DVT prophylaxis, NicoDerm patch in place. The patient is seen today September 25, 2023 in follow-up on the regular medical floor. He is currently sitting up in bed. Awake and alert in no acute distress. Denies any worsening shortness of breath, cough or congestion. He is maintaining O2 saturations in the 90s on 3 L/min per nasal cannula. He did undergo EGD early this morning that was reported as a normal-appearing esophagus with no evidence of esophagitis or esophageal stricture. Mild antral gastritis. Chest x-ray continues to show no acute pulmonary process. Speech therapy evaluation revealed severe pharyngeal dysphagia and delayed swallow initiation, severely reduced tongue base strength and severely impaired posterior pharyngeal wall peristalsis. Due to the high risk of chronic aspiration alternate means of nutrition are recommended. He is to remain NPO. May require PEG tube placement. Objective - Vital Signs Vital signs: Vital Signs Temp 98.1 F 09/25/23 13:15 Pulse 88 09/25/23 13:15 Resp 18 09/25/23 13:15 BP 162/93 09/25/23 13:15 Pulse Ox 98 09/25/23 13:15 FiO2 50 09/21/23 08:07 Intake & Output 09/24/23 09/25/23 09/25/23 18:59 06:59 18:59 Intake Total 900 50 Output Total 1350 Balance -450 50 Weight 86.183 kg Intake: IV 50 Intake, IV Titration 900 Amount Piperacillin-Tazobactam 3 100 .375 gm In Sodium Chloride 0.9% 100 ml @ 25 mls/hr IVPB Q8HR [facility] Rx# :[id number] Sodium Chloride 0.45% 1, 800 000 ml @ 100 mls/hr IV . Q10H [facility] Rx#:[id number] Output: Urine 1350 Other: Voiding Method Bedside Commode Bedside Commode Bedside Commode Urinal Urinal Urinal Diaper Diaper Diaper # Voids 2 - Exam GENERAL EXAM: Alert, pleasant 68-year-old male, on 2 L nasal cannula, in no apparent distress. HEAD: Normocephalic. EYES: Normal reaction of pupils, equal size. NOSE: Clear with pink turbinates. THROAT: No erythema or exudates. NECK: No masses, no JVD. CHEST: No chest wall deformity. LUNGS: Equal air entry with few scattered rhonchi bilaterally. CVS: S1 and S2 normal with no audible murmur, regular rhythm. ABDOMEN: No hepatosplenomegaly, normal bowel sounds, no guarding or rigidity. SPINE: No scoliosis or deformity SKIN: No rashes CENTRAL NERVOUS SYSTEM: Some expressive aphasia, otherwise no focal deficits, tone is normal in all 4 extremities. EXTREMITIES: There is no peripheral edema. No clubbing, no cyanosis. Peripheral pulses are intact. - Labs CBC & Chem 7: 09/24/23 07:41 09/24/23 07:41 Assessment and Plan Assessment: Altered mental status, currently under investigation, CT of the brain did not show any acute intracranial process. No intracranial hemorrhage or mass effect. Brain CTA of head and neck did not show evidence of dissection of the cervical internal carotid arteries or vertebral arteries or any evidence of significant stenosis at the carotid bifurcations. No evidence of intracranial high-grade stenosis or intracranial aneurysm. No fevers. Toxicology screen negative. The lumbar puncture showed some mild elevation of the protein without any nucleated RBCs or evidence of bleeding. MRI of the brain 09/18/2023 showed abnormalities in the thalamus along with the left occipital parietal region. The patient is c urrently on statin, aspirin and Plavix. Neurologically improving. Follow-up MRI of the brain from 09/22/2023 revealed increased signal within the gyrus of the posterior right parietal lobe. This does have some extent along the sylvian fissure. Consider cortical infarct and ischemia. DEB was unable to be performed due to inability to pass the scope down the esophagus. However, EGD revealed no esophageal abnormalities or strictures. Mild gastritis. Seizure, possibly new onset. Follow-up EEG does not show any epileptiform discharge/seizure or focal slowing. The patient is currently on Vimpat Aphasia/dysphasia. Speech therapist recommends remaining n.p.o. and alternative feeding, may need PEG tube placement Acute hypoxemic respiratory failure, currently on 2 L of oxygen nasal cannula, possible aspiration pneumonia, on IV Zosyn Hypertensive urgency, improved with as needed hydralazine Hyperlipidemia Suspect underlying chronic obstructive pulmonary disease, does not appear in exacerbation Chronic tobacco dependence reported Plan: The patient was seen and evaluated EGD results and medications reviewed Speech therapy recommendations reviewed To remain nothing by mouth May need PEG tube insertion Patient and family are having discussions I have personally seen and examined the patient, performed the documentation and the assessment and plan as written. Number of minutes spent on the visit: 10.
[2023-09-25] MEDS: NYSTATIN 100,000 UNIT/ML SUSP 500,000 UNIT/5 ML CUP PO SCH (16:07)
--- NOTE | 2023-09-25 16:13 | P.PN ---
Subjective Progress Note Date: 09/25/23 Principal diagnosis: Reason for follow-up is aspiration pneumonitis and thrush Patient is a 68-year-old male who was brought into the hospital for evaluation of mental status changes, patient also have a seizure activity and did have a negative workup for CVA with increasing confusion concern for possible encephalitis prompting this consultation. On today's evaluation that is 09/25/2023, the patient continues to be afebrile, the patient is on 3 L nasal cannula oxygen and breathing comfortably, the Pt denies having any chest pain cough is decreased in intensity, the patient denies having any abdominal pain no vomiting or any diarrhea, still complaining of some slurred speech and thrush. Patient did not have any lab draw today Objective - Vital Signs Vital signs: Vital Signs Temp 98.1 F 09/25/23 08:29 Pulse 90 09/25/23 09:13 Resp 17 09/25/23 08:29 BP 165/85 09/25/23 09:13 Pulse Ox 96 09/25/23 09:13 FiO2 50 09/21/23 08:07 Intake & Output 09/24/23 09/25/23 09/25/23 18:59 06:59 18:59 Intake Total 900 50 Output Total 1350 Balance -450 50 Weight 86.183 kg Intake: IV 50 Intake, IV Titration 900 Amount Piperacillin-Tazobactam 3 100 .375 gm In Sodium Chloride 0.9% 100 ml @ 25 mls/hr IVPB Q8HR [facility] Rx# :[id number] Sodium Chloride 0.45% 1, 800 000 ml @ 100 mls/hr IV . Q10H [facility] Rx#:[id number] Output: Urine 1350 Other: Voiding Method Bedside Commode Bedside Commode Bedside Commode Urinal Urinal Urinal Diaper Diaper Diaper # Voids 2 - Exam GENERAL DESCRIPTION: An elderly male lying in bed in no distress RESPIRATORY SYSTEM: Unlabored breathing , decreased breath sounds at bases HEART: S1 S2 regular rate and rhythm , ABDOMEN: Soft , no tenderness EXTREMITIES: No edema feet - Labs CBC & Chem 7: 09/24/23 07:41 09/24/23 07:41 Assessment and Plan (1) Aspiration pneumonia Current Visit: Yes Status: Acute Code(s): J69.0 - PNEUMONITIS DUE TO INHALATION OF FOOD AND VOMIT SNOMED Code(s): 847462715 (2) Thrush Current Visit: Yes Status: Acute Code(s): B37.0 - CANDIDAL STOMATITIS SNOMED Code(s): 93710819 Plan: 1patient does not hospital mental status changes likely multifactorial patient did have a seizure activity has been new for him also noticed to have elevated blood pressure concern for possible hypertensive encephalopathy question of encephalitis less likely as the patient not running fever did have mild elevated white count yesterday has normalized subsequently however not entirely excluded, patient did have LP completed only 1 WBC glucose normal protein only 77 not behaving as meningitis or encephalitis, patient also have abnormal MRI with i schemic changes could be responsible for his mental status changes, patient did have a negative CSF examination, HSV DNA by PCR is negative that will make HSV encephalitis to be less likely no need for acyclovir 2patient with possible aspiration pneumonitis, for which the patient did have improvement in respiratory status a patient to continue with the Zosyn 3extensive thrush and did have difficulty in swallowing, patient has been started on IV Diflucan will add nystatin swish and spit and see response Family at the bedside questions answered Dictation was produced using [employer] dictation software. please excuse any grammatical, word or spelling errors. Time with Patient: Less than 30
--- NOTE | 2023-09-25 18:15 | P.PN ---
Progress Note - Text Progress Note Date: 09/25/[address] Kathleen dictating an addendum on 09/25/2023 at 6:15 pm I received a call from Dr. Anderson, neurologist , a short while ago, he indicated that the patient may be in status epilepticus, and he would benefit of a transfer to a tertiary care center for continuous EEG monitoring. He increased his Vimpat dose and added Dilantin. I called the [facility] transfer line, and spoke with Dr. Main neurologist, he accepted the transfer, and patient will be transferred to [facility] when a bed is available.
[2023-09-25] MEDS: PHENYTOIN SODIUM INJ 1,500 MG in SODIUM CHLORIDE 0.9% 100 ML IVPB STA (18:28)
[2023-09-25] MEDS: ZIPRASIDONE 20 MG VIAL IM STA (22:34)
[2023-09-25 23:29] VITALS: BP 141/73; PULSE 82; RESP 16; TEMP 98.5
--- NOTE | 2023-09-26 02:43 | EEG ---
ELECTROENCEPHALOGRAM REPORT PREAMBLE: This is a 68-year-old male, with history of stroke, has episodes of staring spells. This study is performed to evaluate for any epileptiform activity. EEG FINDINGS: This is a 21-channel digital EEG recorded with video component, utilizing 10/20 international system with referential and bipolar montages. Background starts and continues with presence of high amplitude periodic lateralized epileptiform activity at 1 hertz seen throughout the study. No spread to the left hemispheric region was noted. No motor activity was noted otherwise clinically. The background in the left hemispheric region consists of mixed frequencies of some alpha, some theta, and occasional delta activity seen, which is not clearly reactive to eye opening or closing. Photic driving response was not seen. Different stages of sleep were not clearly seen. IMPRESSION: Abnormal EEG due to presence of continuous periodic lateralized epileptiform discharges over the right hemispheric region, maximal in the temporal parietal region. No spread to the left hemispheric region was seen. Clinically, no motor activity was seen. Overall, this EEG is suggestive of irritative focus involving the right hemispheric region with tendency for partial onset seizure. In appropriate clinical setting, this EEG may be consistent with partial status epilepticus. Clinical correlation is strongly recommended. Also recommended continuous EEG monitoring. MMODL / IJN: [id number] / MTDD
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
--- NOTE | 2023-09-27 10:02 | P.DS ---
Providers Date of admission: 09/15/23 17:34 Expected date of discharge: 09/25/23 Attending physician: Tony Kathleen Consults: 09/16/23 09:10 Consult Physician Routine Consulting Provider: Abhinav Bar Consult Reason/Comments: stroke Do you want consulting provider notified?: Yes 09/16/23 17:15 Consult Physician Routine Consulting Provider: Vance Schneider Consult Reason/Comments: critical care management Do you want consulting provider notified?: Yes 09/17/23 12:19 Consult Physician Routine Consulting Provider: Radha Liu Consult Reason/Comments: encephalitis Do you want consulting provider notified?: Yes 09/17/23 12:20 Consult Physician Routine Consulting Provider: Fly Bright Consult Reason/Comments: encephalitis- LP Do you want consulting provider notified?: Yes 09/21/23 14:27 Consult Physician Routine Consulting Provider: Tab Bautista Consult Reason/Comments: DEB. stroke Do you want consulting provider notified?: Yes 09/23/23 10:39 Consult Physician Routine Consulting Provider: Erica Perez Consult Reason/Comments: r/o diverticulum Do you want consulting provider notified?: Yes Primary care physician: Katlyn Solis Hospital Course: discharge diagnosis patient transferred to [facility] 1. altered mental status changes likely secondary from acute ischemic stroke 2. Witnessed seizure in ER patient was started on Keppra 3. Episode of vertigo approximately 1 month ago 4. Nicotine dependence 5. Pneumonia patient started on IV Zosyn Hospital course This is a 68-year-old male patient of Dr. Solis who presented to the ERWith concerns of altered mental status changes. According to at bedside Patient was found driving around confused EMS was called and upon exam patient was having difficulty following basic commands but was able to move all 4 extremities.According to upon arrival to ER patient did have witnessed seizure. Patient does not have a history of seizure and no other significant medical history except nicotine dependence. Patient does drink a couple beers a night according to patient has not drink a lot over the past month. Patient was treated for vertigo approximately 1 month ago But no other significant history noted. No recent change to diet or medication. Head CT was completed showing no acute intracranial process. Nonspecific white matter changes likely secondary to chronic small vessel ischemic disease.CT angiogram completed showing no evidence of dissection of the cervical internal carotid arteries or vertebral arteries are any evidence of significant stenosis of the carotid bifurcations. No evidence of intracranial high-grade stenosis or intracranial aneurysm.Chest x-ray completed showing no acute cardiopulmonary disease no changes.At this time patient remains confused does not follow commands. Patient was started on Keppra per ER. At this time neurology service is consulted. MRI of the brain and EEG has been ordered. 2-D echocardiogram ordered. Repeat labs ordered. PT OT and speech service is consulted. Current vital signs temp 98.3, heart rate 83, respiratory rate 18, blood pressure 148/92 with pulse ox 97%. on 09/17/2023 patient was seen and examined he remains in the ER awaiting bed availability, patient mental status remains abnormal he is still confused and slightly agitated, at this time infectious disease consultation was requested in regard to possible acute encephalitis, patient was started on IV acyclovir, he was also started on IV ceftriaxone for urinary tract infection, neurology, critical care, and infectious disease consult are following, consult for and his Tesio was initiated for lumbar puncture On 09/18/2023 patient is currently resting in bed appears more calm than yesterday per family at bedside. Patient was started on acyclovir and Rocephin. Infectious disease, critical care neurology services are Consulted. Possible plans for lumbar puncture. Current vital signs temp 97.8, heart rate 96, blood pressure 142/83 with pulse ox 99% on room air On 09/19/2023 patient was seen and examined on the medical floor he is currently resting in bed appears more calm than yesterday per family at bedside. he is answering a few questions appropriately. Patient was started on acyclovir and Rocephin. Infectious disease, critical care neurology services are Consulted. lumbar puncture done and results reviewed, no evidence of bacterial infection, awaiting results on her face antibodies, MRI was done and reveals an area of acute stroke, patient was seen and examined by neurology, he is improving gradually. on 09/20/2023 patient was seen and examined on the medical floor, he is alert responsive in no apparent distress, he is answering a few questions appropriately, through the night patient had worsening respiratory status with decreasing O2 sat duration, chest x-ray revealed bilateral infiltrate, patient is Now on strict nothing by mouth, he is maintained on IV fluid, IV Rocephin was discontinued and he was started on IV Zosyn for possible aspiration pneumonia, mental the patient is improving he is still significantly confused, pulmonary critical care, infectious disease and neurology are following. on 09/21/2023 patient was seen and examined on the medical floor, he is more alert and responsive today, he is sitting up in a chair, he is still maintained on oxygen via facial mask FiO2 of 50%, he is complaining of cough with sputum production, he is having generalized tremor, otherwise he denies any complaints there is no fever or chills no headache or dizziness no chest pain no shortness of breath no nausea or vomiting no abdominal pain no diarrhea no blood in the stools no burning with urination no frequency or urgency no hematuria, input from pulmonary and neurology reviewed. On 09/21/2022 4 patient is alert and more responsive today sitting up in chair. Patient on nasal cannula 5 L family at bedside. MRI and DEB has been ordered. Repeat chest x-ray also ordered. Patient denies chest pain or shortness of breath. Patient denies nausea vomiting or diarrhea. Patient denies any urinary burning or frequency On 09/23/2023 patient is alert and oriented 2. Nasal cannula 3 L. DEB was unsuccessful recommending possible GI workup to rule out diverticulum. Speech therapy also recommending modified barium swallow. PT OT service is consulted. Current vital signs temp 98.3, heart rate 81, respiratory rate 17, blood pressure 153/70, pulse ox 97% on 3 LPatient denies chest pain or shortness of breath. Patient denies nausea vomiting or diarrhea. Patient denies any urinary burning or frequency on 09/24/2023 patient was seen and examined on the medical floor he is alert and oriented 3 in no apparent distress, there is no fever or chills no headache or dizziness no chest pain no shortness of breath no cough no nausea or vomiting no abdominal pain no diarrhea and no urinary symptoms. Patient failed swallow evaluation, patient is scheduled for EGD tomorrow, he has evidence of severe oral candidiasis, he was started on IV Diflucan, will continue to follow closely On 09/25/2023 patient's alert and oriented 3 currently sitting up in chair. Per family at bedside patient had episode of increased confusion yesterday. Patient underwent EGD this a.m. showing normal-appearing esophagus with no e vidence of esophagitis or esophageal stricture. patient to be reevaluated by speech services. Awaiting further recognitions from neurology services. At this time patient denies chest pain or shortness breath. Patient denies nausea vomiting or diarrhea. Patient denies any urinary burning or frequency recommended transferred to [facility] due to concerns of patient being in status epilepticus and continuous EEG monitoring Patient Condition at Discharge: Undetermined Plan - Discharge Summary New Discharge Prescriptions: No Action No Known Home Medications Discharge Medication List No Known Home Medications 09/15/23 [History] Follow up Appointment(s)/Referral(s): Abdoul Lomeli MD [Medical Doctor] - 6 Weeks [facility], [NON-STAFF] - 1 Week Katlyn Solis MD [Primary Care Provider] - 1-2 days Patient Instructions/Handouts: Seizure/Epilepsy Discharge Instructions & Follow-Up Discharge Disposition: TRANSFER TO [facility]
== END 2023-09-25 23:30 | disposition short-term general hospital (02) | DRG 64 ==
LOC: EC 13:49 → 3SCARD 17:34 → 5NMEDONC 09-17 09:15
PROVIDERS: ADMIT Internal Medicine; ATTEND Internal Medicine
PROC: 009U3ZX Drainage of Spinal Canal, Percutaneous Approach, Diagnostic (ICD-10-PCS; principal; 2023-09-16)
PROC: 4A10X4Z Monitoring of Central Nervous Electrical Activity, External Approach (ICD-10-PCS; 2023-09-16)
PROC: B246ZZ4 Ultrasonography of Right and Left Heart, Transesophageal (ICD-10-PCS; 2023-09-22)
PROC: 4A10X4Z Monitoring of Central Nervous Electrical Activity, External Approach (ICD-10-PCS; 2023-09-25)
PROC: 0DJ08ZZ Inspection of Upper Intestinal Tract, Via Natural or Artificial Opening Endoscopic (ICD-10-PCS; 2023-09-25)
DX: I63.9 Cerebral infarction, unspecified (principal); J69.0 Pneumonitis due to inhalation of food and vomit; J96.01 Acute respiratory failure with hypoxia; I16.1 Hypertensive emergency; I67.4 Hypertensive encephalopathy; B37.0 Candidal stomatitis; G93.49 Other encephalopathy; F05 Delirium due to known physiological condition; N39.0 Urinary tract infection, site not specified; R56.9 Unspecified convulsions; R47.01 Aphasia; F17.210 Nicotine dependence, cigarettes, uncomplicated; I16.0 Hypertensive urgency; R47.02 Dysphasia; E78.5 Hyperlipidemia, unspecified; I10 Essential (primary) hypertension; R13.13 Dysphagia, pharyngeal phase; K29.70 Gastritis, unspecified, without bleeding; Z79.02 Long term (current) use of antithrombotics/antiplatelets; Z79.82 Long term (current) use of aspirin; Z86.73 Personal history of transient ischemic attack (TIA), and cerebral infarction without residual deficits
CPT/HCPCS: 36415; 36600; 43235; 70450; 70496; 70498; 70551; 71045; 74230; 80053; 80061; 80306; 80320; 81001; 82140; 82550; 82607; 82746; 82805; 82945; 83036; 83735; 84132; 84145; 84157; 84484; 85025; 85610; 85730; 86140; 86592; 87040; 87070; 87077; 87086; 87186; 87205; 87529; 89050; 93005; 93306; 94640; 94760; 95816; 96361; 96365; 96366; 96367; 96372; 96375; 96376; 99285

== ENCOUNTER 2023-10-16 17:24 | Inpatient (IN) | payer MEDICARE ==
[2023-10-16] MEDS: SODIUM CHLORIDE 0.9% 1,000 ML IV SCH (17:53)
[2023-10-16] MEDS: ACETAMINOPHEN IV (For NPO) 1,000 MG in EMPTY BAG 1 BAG IVPB STA (18:08)
--- NOTE | 2023-10-16 18:09 | ED ---
General Adult HPI - General Chief complaint: Altered Mental Status Stated complaint: AMS, fever Time Seen by Provider: 10/16/23 17:33 Source: patient, family, RN notes reviewed Mode of arrival: ambulatory Limitations: no limitations - History of Present Illness Initial comments: Patient is a 68-year-old male presenting to the emergency department with fever. Patient has been a little bit more confused over the past 2 days. Patient has had occasional shakes. Patient did have fever at home. Patient has had some ice chips otherwise has had intake through feeding tube. questions if patient may have aspirated. Patient admits to feeling fatigued and having myalgias. - Related Data Home Medications Medication Instructions Recorded Confirmed No Known Home Medications 09/15/23 09/15/23 Allergies Allergy/AdvReac Type Severity Reaction Status Date / Time No Known Allergies Allergy Verified 10/16/23 17:30 Review of Systems ROS Statement: Those systems with pertinent positive or pertinent negative responses have been documented in the HPI. ROS Other: All systems not noted in ROS Statement are negative. Constitutional: Reports: fever, chills Eyes: Denies: eye pain Respiratory: Denies: cough, dyspnea Cardiovascular: Denies: chest pain Endocrine: Reports: fatigue Gastrointestinal: Denies: abdominal pain Musculoskeletal: Denies: back pain Past Medical History Past Medical History: CVA/TIA, Hypertension, Seizure Disorder History of Any Multi-Drug Resistant Organisms: None Reported Past Surgical History: No Surgical Hx Reported Past Psychological History: No Psychological Hx Reported Smoking Status: Current every day smoker Past Alcohol Use History: Occasional Past Drug Use History: None Reported General Exam Limitations: no limitations General appearance: alert, in no apparent distress Head exam: Present: normocephalic Eye exam: Present: normal appearance ENT exam: Present: normal oropharynx Neck exam: Present: normal inspection. Absent: tenderness, meningismus Respiratory exam: Present: normal lung sounds bilaterally Cardiovascular Exam: Present: regular rate, normal rhythm GI/Abdominal exam: Present: soft, other (Seen tube in place without signs of infection). Absent: tenderness Extremities exam: Present: normal inspection Neurological exam: Present: alert Expanded Motor strength exam: RLE: 5, LLE: 5 Psychiatric exam: Present: normal affect, normal mood Skin exam: Present: normal color Course Vital Signs 10/16/23 10/16/23 10/16/23 17:27 17:51 18:00 Temperature 102.6 F H 101.3 F H Pulse Rate 102 H 94 93 Respiratory 20 18 20 Rate Blood Pressure 88/51 102/61 102/61 O2 Sat by Pulse 96 97 98 Oximetry 10/16/23 18:30 Temperature Pulse Rate 90 Respiratory 20 Rate Blood Pressure 89/48 O2 Sat by Pulse 100 Oximetry EKG Findings - EKG Results: EKG: interpreted by ERMD, sinus rhythm, normal axis, normal QRS, normal ST/T Medical Decision Making - Medical Decision Making Was pt. sent in by a medical professional or institution (, PA, DOCUMENT EXAMINER, urgent care, hospital, or senior care...) When possible be specific @ -No Did you speak to anyone other than the patient for history (EMS, parent, family, police, friend...)? What history was obtained from this source @ - is present and provides majority of history including recent hospitalization and symptom Did you review nursing and triage notes (agree or disagree)? Why? @ -I reviewed and agree with nursing and triage notes Were old charts reviewed (outside hosp., previous admission, EMS record, old EKG, old radiological studies, urgent care reports/EKG's, senior care records)? Report findings @ -Previous admission reviewed Differential Diagnosis (chest pain, altered mental status, abdominal pain women, abdominal pain men, vaginal bleeding, weakness, fever, dyspnea, syncope, headache, dizziness, GI bleed, back pain, seizure, CVA, palpatations, mental health, musculoskeletal)? @ -Differential Fever: Pneumonia, viral URI, endocarditis, myocarditis, pericarditis, otitis, sinusitis, peritonsillar Abscess, retropharyngeal Abscess, epiglottitis, peritonitis, appendicitis, Cara cystitis, diverticulitis, hepatitis, colitis, UTI, PID, TOA, pyelonephritis, prostatitis, epididymitis, meningitis, encephalitis, pulmonary embolism, CVA, thyroid storm, pancreatitis, adrenal crisis, cavernous sinus thrombosis, this is not meant to be an all-inclusive list. EKG interpreted by me (3pts min.). @ -As above X-rays interpreted by me (1pt min.). @ -X-ray shows no acute process CT interpreted by me (1pt min.). @ -None done U/S interpreted by me (1pt. min.). @ -None done What testing was considered but not performed or refused? (CT, X-rays, U/S, labs)? Why? @ -None What meds were considered but not given or refused? Why? @ -None Did you discuss the management of the patient with other professionals (professionals i.e. , PA, DOCUMENT EXAMINER, lab, RT, psych nurse, social science analyst, commercial collections driver, teacher, combat systems officer, binder caser)? Give summary @Case discussed with Dr. Kathleen who is familiar with this patient and will admit covering Dr. Marte Was smoking cessation discussed for >3mins.? @ -No Was critical care preformed (if so, how long)? @ -No Were there social determinants of health that impacted care today? How? (Homelessness, low income, unemployed, alcoholism, drug addiction, transportation, low edu. Level, literacy, decrease access to med. care, prison, rehab)? @ -No Was there de-escalation of care discussed even if they declined (Discuss DNR or withdrawal of care, Hospice)? DNR status @ -No What co-morbidities impacted this encounter? (DM, HTN, Smoking, COPD, CAD, Cancer, CVA, ARF, Chemo, Hep., AIDS, mental health diagnosis, sleep apnea, mor bid obesity)? @ -None Was patient admitted / discharged? Hospital course, mention meds given and ro tetlin, prescriptions, significant lab abnormalities, going to OR and other pertinent info. @ -Patient presents with fever. Etiology of fevers not determined. Patient does have borderline hypotension and is being provided fluid boluses. Patient will be admitted. Admission orders written. Consult will be placed with infectious disease. Empiric antibiotic started for fever of undetermined etiolo gy Undiagnosed new problem with uncertain prognosis? @ -No Drug Therapy requiring intensive monitoring for toxicity (Heparin, Nitro, Insulin, Cardizem)? @ -No Were any procedures done? @ -No Diagnosis/symptom? @ -Fever, hypotension Acute, or Chronic, or Acute on Chronic? @ -Acute, acute Uncomplicated (without systemic symptoms) or Complicated (systemic symptoms)? @ -Complicated with hypotension Side effects of treatment? @ -No Exacerbation, Progression, or Severe Exacerbation? @ -No Poses a threat to life or bodily function? How? (Chest pain, [place], SC, pneumonia, PE, COPD, DKA, ARF, appy, cholecystitis, CVA, Diverticulitis, Homicidal, Suicidal, threat to staff... and all critical care pts) @ -Threat to multiorgan dysfunction - Lab Data Result diagrams: 10/16/23 18:29 10/16/23 17:47 Lab Results 10/16/23 10/16/23 10/16/23 Range/Units 17:47 17:47 17:47 WBC (3.8-10.6) k/uL RBC (4.30-5.90) m/uL Hgb (13.0-17.5) gm/dL Hct (39.0-53.0) % MCV (80.0-100.0) fL MCH (25.0-35.0) pg MCHC (31.0-37.0) g/dL RDW (11.5-15.5) % Plt Count (150-450) k/uL MPV Neutrophils % % Lymphocytes % % Monocytes % % Eosinophils % % Basophils % % Neutrophils # (1.3-7.7) k/uL Lymphocytes # (1.0-4.8) k/uL Monocytes # (0-1.0) k/uL Eosinophils # (0-0.7) k/uL Basophils # (0-0.2) k/uL PT 10.5 (10.0-12.5) sec INR 1.0 (<1.2) APTT 24.5 (22.0-30.0) sec Sodium 134 L (137-145) mmol/L Potassium 5.8 H (3.5-5.1) mmol/L Chloride 101 (98-107) mmol/L Carbon Dioxide 27 (22-30) mmol/L Anion Gap 6 mmol/L BUN 36 H (9-20) mg/dL Creatinine 1.33 H (0.66-1.25) mg/dL Est GFR (CKD-EPI)AfAm 63 (>60 ml/min/1.73 sqM) Est GFR (CKD-EPI)NonAf 54 (>60 ml/min/1.73 sqM) Glucose 108 H (74-99) mg/dL Plasma Lactic Acid Jimbo 1.2 (0.7-2.0) mmol/L Calcium 8.5 (8.4-10.2) mg/dL Total Bilirubin 0.9 (0.2-1.3) mg/dL AST 65 H (17-59) U/L ALT 30 (4-49) U/L Alkaline Phosphatase 57 (38-126) U/L Total Protein 6.5 (6.3-8.2) g/dL Albumin 3.1 L (3.5-5.0) g/dL Urine Color Urine Appearance (Clear) Urine pH (5.0-8.0) Ur Specific Keymar (1.001-1.035) Urine Protein (Negative) Urine Glucose (UA) (Negative) Urine Ketones (Negative) Urine Blood (Negative) Urine Nitrite (Negative) Urine Bilirubin (Negative) Urine Urobilinogen (<2.0) mg/dL Ur Leukocyte Esterase (Negative) Urine RBC (0-5) /hpf Urine WBC (0-5) /hpf Influenza Type A (PCR) (Not Detectd) Influenza Type B (PCR) (Not Detectd) RSV (PCR) (Not Detectd) SARS-CoV-2 (PCR) (Not Detectd) 10/16/23 10/16/23 10/16/23 Range/Units 17:47 17:47 18:29 WBC 8.4 (3.8-10.6) k/uL RBC 2.44 L (4.30-5.90) m/uL Hgb 8.3 L D (13.0-17.5) gm/dL Hct 23.8 L (39.0-53.0) % MCV 97.8 (80.0-100.0) fL MCH 34.1 (25.0-35.0) pg MCHC 34.8 (31.0-37.0) g/dL RDW 14.1 (11.5-15.5) % Plt Count 136 L (150-450) k/uL MPV 10.6 Neutrophils % 79 % Lymphocytes % 10 % Monocytes % 8 % Eosinophils % 1 % Basophils % 0 % Neutrophils # 6.6 (1.3-7.7) k/uL Lymphocytes # 0.8 L (1.0-4.8) k/uL Monocytes # 0.7 (0-1.0) k/uL Eosinophils # 0.1 (0-0.7) k/uL Basophils # 0.0 (0-0.2) k/uL PT (10.0-12.5) sec INR (<1.2) APTT (22.0-30.0) sec Sodium (137-145) mmol/L Potassium (3.5-5.1) mmol/L Chloride (98-107) mmol/L Carbon Dioxide (22-30) mmol/L Anion Gap mmol/L BUN (9-20) mg/dL Creatinine (0.66-1.25) mg/dL Est GFR (CKD-EPI)AfAm (>60 ml/min/1.73 sqM) Est GFR (CKD-EPI)NonAf (>60 ml/min/1.73 sqM) Glucose (74-99) mg/dL Plasma Lactic Acid Jimbo (0.7-2.0) mmol/L Calcium (8.4-10.2) mg/dL Total Bilirubin (0.2-1.3) mg/dL AST (17-59) U/L ALT (4-49) U/L Alkaline Phosphatase (38-126) U/L Total Protein (6.3-8.2) g/dL Albumin (3.5-5.0) g/dL Urine Color Yellow Urine Appearance Clear (Clear) Urine pH 7.5 (5.0-8.0) Ur Specific Keymar 1.015 (1.001-1.035) Urine Protein 1+ H (Negative) Urine Glucose (UA) Negative (Negative) Urine Ketones Negative (Negative) Urine Blood Negative (Negative) Urine Nitrite Negative (Negative) Urine Bilirubin Negative (Negative) Urine Urobilinogen 4.0 (<2.0) mg/dL Ur Leukocyte Esterase Negative (Negative) Urine RBC 1 (0-5) /hpf Urine WBC 1 (0-5) /hpf Influenza Type A (PCR) Not Detected (Not Detectd) Influenza Type B (PCR) Not Detected (Not Detectd) RSV (PCR) Not Detected (Not Detectd) SARS-CoV-2 (PCR) Not Detected (Not Detectd) Disposition Clinical Impression: Fever, Hypotension Disposition: ADMITTED IP TO THIS HOSP Condition: Serious Is patient prescribed a controlled substance at d/c from ED?: No Referrals: Katlyn Solis MD [Primary Care Provider] - 1-2 days Time of Disposition: 19:41
--- NOTE | 2023-10-16 18:11 | XR ---
EXAMINATION TYPE: XR chest 2V DATE OF EXAM: 10/16/2023 COMPARISON: 09/25/2023 HISTORY: Shortness of breath TECHNIQUE: Frontal and lateral views of the chest are obtained. FINDINGS: Scattered senescent parenchymal changes noted. Hyperinflation compatible with COPD. No evidence for infiltrate. No evidence for atelectasis. Heart size is stable. Mediastinal structures are stable and grossly unremarkable. No evidence for hilar prominence. Degenerative changes dorsal spine. IMPRESSION: 1. No evidence for acute pulmonary disease.
[2023-10-16 18:12] LABS: African American GFR (CKD) 63 (>60 ml/min/1.73 sqM); Albumin 3.1 g/dL (3.5-5.0); Anion Gap 6 mmol/L; Blood Urea Nitrogen 36 mg/dL (9-20); Calcium 8.5 mg/dL (8.4-10.2); Carbon Dioxide 27 mmol/L (22-30); Chloride 101 mmol/L (98-107); Glucose 108 mg/dL (74-99); Non-African American GFR(CKD) 54 (>60 ml/min/1.73 sqM); Sodium 134 mmol/L (137-145); Total Bilirubin 0.9 mg/dL (0.2-1.3)
[2023-10-16 18:15] LABS: Partial Thromboplastin Time 24.5 sec (22.0-30.0); Prothrombin Time 10.5 sec (10.0-12.5)
[2023-10-16 18:17] LABS: ALT 30 U/L (4-49); AST 65 U/L (17-59); Alkaline Phosphatase 57 U/L (38-126); Potassium 5.8 mmol/L (3.5-5.1); Total Protein 6.5 g/dL (6.3-8.2)
[2023-10-16 18:27] LABS: Appearance,Urine Clear (Clear); Bilirubin,Urine Negative (Negative); Blood,Urine Negative (Negative); Color,Urine Yellow; Glucose,Urine (UA) Negative (Negative); Ketones,Urine Negative (Negative); Leukocyte Esterase,Urine Negative (Negative); Nitrite,Urine Negative (Negative); PH, Urine 7.5 (5.0-8.0); Protein,Urine 1+ (Negative); RBC,Urine 1 /hpf (0-5); Specific Gravity,Urine 1.015 (1.001-1.035); WBC,Urine 1 /hpf (0-5)
[2023-10-16 18:42] LABS: Basophils % (A) 0 %; Eosinophils # (A) 0.1 k/uL (0-0.7); Eosinophils % (A) 1 %; HCT 23.8 % (39.0-53.0); Lymphocytes # (A) 0.8 k/uL (1.0-4.8); Lymphocytes % (A) 10 %; MCH 34.1 pg (25.0-35.0); MCHC 34.8 g/dL (31.0-37.0); MCV 97.8 fL (80.0-100.0); Mean Platelet Volume 10.6; Monocytes # (A) 0.7 k/uL (0-1.0); Monocytes % (A) 8 %; Neutrophils # (A) 6.6 k/uL (1.3-7.7); Neutrophils % (A) 79 %; Platelet Count 136 k/uL (150-450); RBC 2.44 m/uL (4.30-5.90); RDW 14.1 % (11.5-15.5); WBC 8.4 k/uL (3.8-10.6)
[2023-10-16 18:45] LABS: HGB 8.3 gm/dL (13.0-17.5)
[2023-10-16] MEDS ORDERED: NALOXONE 0.4 MG/ML 1 ML VIAL IV PRN (19:41)
[2023-10-16] MEDS: SODIUM CHLORIDE 0.9% 1,000 ML IV STA ×2 (20:00)
[2023-10-16] MEDS: PANTOPRAZOLE 40 MG/10 ML VIAL IV SCH (20:25)
[2023-10-16] MEDS: SODIUM CHLORIDE 0.9% 250 ML IV STA (21:09)
[2023-10-16] MEDS: VALPROIC ACID ORAL SOLN 250 MG/5 ML CUP PO SCH (22:21)
[2023-10-17 08:44] LABS: ALT 25 U/L (4-49); African American GFR (CKD) >90 (>60 ml/min/1.73 sqM); Albumin 2.4 g/dL (3.5-5.0); Albumin/Globulin Ratio 0.9; Anion Gap 4 mmol/L; Blood Urea Nitrogen 23 mg/dL (9-20); Calcium 7.5 mg/dL (8.4-10.2); Carbon Dioxide 24 mmol/L (22-30); Chloride 110 mmol/L (98-107); Globulin 2.8 g/dL; Glucose 94 mg/dL (74-99); Non-African American GFR(CKD) 79 (>60 ml/min/1.73 sqM); Sodium 138 mmol/L (137-145); Total Bilirubin 0.5 mg/dL (0.2-1.3); Total Protein 5.2 g/dL (6.3-8.2)
[2023-10-17 08:47] LABS: Basophils % (A) 0 %; Eosinophils # (A) 0.1 k/uL (0-0.7); Eosinophils % (A) 1 %; HCT 25.7 % (39.0-53.0); HGB 8.4 gm/dL (13.0-17.5); Lymphocytes # (A) 0.6 k/uL (1.0-4.8); Lymphocytes % (A) 7 %; MCH 32.7 pg (25.0-35.0); MCHC 32.6 g/dL (31.0-37.0); MCV 100.1 fL (80.0-100.0); Mean Platelet Volume 10.2; Monocytes # (A) 1.1 k/uL (0-1.0); Monocytes % (A) 12 %; Neutrophils # (A) 6.9 k/uL (1.3-7.7); Neutrophils % (A) 77 %; Platelet Count 164 k/uL (150-450); RBC 2.57 m/uL (4.30-5.90); RDW 13.8 % (11.5-15.5); WBC 8.9 k/uL (3.8-10.6)
[2023-10-17 08:59] LABS: AST 50 U/L (17-59); Alkaline Phosphatase 56 U/L (38-126); Potassium 4.1 mmol/L (3.5-5.1)
[2023-10-17] MEDS: ASPIRIN 81 MG PO SCH (09:23)
[2023-10-17] MEDS: CLOPIDOGREL 75 MG TAB PO SCH (09:23)
--- NOTE | 2023-10-17 10:20 | P.HPIM ---
History of Present Illness H&P Date: 10/17/23 This is a 68-year-old male patient who presented to the ER with concerns of fever and hypertension. Patient was recently admitted due to concerns of possible stroke for seizures versus herpes encephalitis and was transferred to [facility] for further workup. Patient's girlfriend currently not at bedside patient unable to tell me about hospital stay at [facility] will attempt to obtain records. Patient reports that he has been feeling dizzy over the past few days. Upon arrival patient noted to have a temp of 102.6. Chest x-ray completed showing no evidence for acute pulmonary disease. Medical history includes CVA, hypertension and seizure disorder. Lab work revealing WBC of 8.9, hemoglobin 8.4, creatinine 0.97, bun 23 patient does have PEG tube placement at this time patient was started on IV Rocephin. Infectious disease services consulted. Blood and urine cultures ordered repeat labs ordered Review of Systems Please refer to HPI otherwise unremarkable Past Medical History Past Medical History: CVA/TIA, Hypertension, Seizure Disorder History of Any Multi-Drug Resistant Organisms: None Reported Past Surgical History: No Surgical Hx Reported Past Psychological History: No Psychological Hx Reported Smoking Status: Former smoker Past Alcohol Use History: None Reported Past Drug Use History: None Reported Medications and Allergies Home Medications Medication Instructions Recorded Confirmed Type Aspirin EC [Ecotrin Low Dose] 81 mg PO DAILY 10/16/23 10/16/23 History Atorvastatin [Lipitor] 80 mg PO HS 10/16/23 10/16/23 History Clopidogrel [Plavix] 75 mg PO DAILY 10/16/23 10/16/23 History Lacosamide [Vimpat Oral Soln] 200 mg PO BID 10/16/23 10/16/23 History Losartan [Cozaar] 50 mg PO DAILY 10/16/23 10/16/23 History Valproic Acid Oral Soln [Depakene 500 mg PO TID@0600,1400,2200 10/16/23 10/16/23 History Syrup] Allergies Allergy/AdvReac Type Severity Reaction Status Date / Time No Known Allergies Allergy Verified 10/16/23 19:52 Physical Exam Vitals: Vital Signs Temp Pulse Pulse Resp BP BP Pulse Ox 10/17/23 07:32 98.1 F 101 H 16 100/57 95 10/17/23 07:00 74 16 116/54 95 10/17/23 06:00 98.4 F 92 18 110/67 98 10/17/23 03:00 91 16 111/72 98 10/17/23 01:30 89 16 104/66 98 10/17/23 00:00 98.7 F 98 16 126/54 95 10/16/23 22:00 84 16 122/64 96 10/16/23 20:20 82 17 94/63 97 10/16/23 18:30 90 20 89/48 100 10/16/23 18:00 101.3 F H 93 20 102/61 98 10/16/23 17:51 94 18 102/61 97 10/16/23 17:27 102.6 F H 102 H 20 88/51 96 Intake and Output 10/16/23 10/17/23 10/17/23 22:59 06:59 14:59 Other: Weight 70.307 kg Head normocephalic Neck supple Lungs clear to auscultation bilaterally no wheezing or crackles Heart regular rate and rhythm S1-S2, no rub or gallop Abdomen is soft nontender nondistended positive bowel sounds no hepatosplenomeg misael Extremities no edema Neuro alert and orientated to 2. Poor historian Results CBC & Chem 7: 10/17/23 08:18 10/17/23 08:18 Labs: Abnormal Lab Results - Last 24 Hours (Table) 10/16/23 10/16/23 10/16/23 Range/Units 17:47 17:47 18:29 RBC 2.44 L (4.30-5.90) m/uL Hgb 8.3 L D (13.0-17.5) gm/dL Hct 23.8 L (39.0-53.0) % MCV (80.0-100.0) fL Plt Count 136 L (150-450) k/uL Lymphocytes # 0.8 L (1.0-4.8) k/uL Monocytes # (0-1.0) k/uL Sodium 134 L (137-145) mmol/L Potassium 5.8 H (3.5-5.1) mmol/L Chloride (98-107) mmol/L BUN 36 H (9-20) mg/dL Creatinine 1.33 H (0.66-1.25) mg/dL Glucose 108 H (74-99) mg/dL Calcium (8.4-10.2) mg/dL AST 65 H (17-59) U/L C-Reactive Protein (<1.0) mg/dL Total Protein (6.3-8.2) g/dL Albumin 3.1 L (3.5-5.0) g/dL Procalcitonin (0.02-0.09) ng/mL Urine Protein 1+ H (Negative) 10/16/23 10/16/23 10/17/23 Range/Units 23:42 Unknown 08:18 RBC 2.57 L (4.30-5.90) m/uL Hgb 8.4 L (13.0-17.5) gm/dL Hct 25.7 L (39.0-53.0) % MCV 100.1 H (80.0-100.0) fL Plt Count (150-450) k/uL Lymphocytes # 0.6 L (1.0-4.8) k/uL Monocytes # 1.1 H (0-1.0) k/uL Sodium (137-145) mmol/L Potassium (3.5-5.1) mmol/L Chloride (98-107) mmol/L BUN (9-20) mg/dL Creatinine (0.66-1.25) mg/dL Glucose (74-99) mg/dL Calcium (8.4-10.2) mg/dL AST (17-59) U/L C-Reactive Protein 24.9 H (<1.0) mg/dL Total Protein (6.3-8.2) g/dL Albumin (3.5-5.0) g/dL Procalcitonin 0.25 H (0.02-0.09) ng/mL Urine Protein (Negative) 10/17/23 Range/Units 08:18 RBC (4.30-5.90) m/uL Hgb (13.0-17.5) gm/dL Hct (39.0-53.0) % MCV (80.0-100.0) fL Plt Count (150-450) k/uL Lymphocytes # (1.0-4.8) k/uL Monocytes # (0-1.0) k/uL Sodium (137-145) mmol/L Potassium (3.5-5.1) mmol/L Chloride 110 H (98-107) mmol/L BUN 23 H (9-20) mg/dL Creatinine (0.66-1.25) mg/dL Glucose (74-99) mg/dL Calcium 7.5 L (8.4-10.2) mg/dL AST (17-59) U/L C-Reactive Protein (<1.0) mg/dL Total Protein 5.2 L (6.3-8.2) g/dL Albumin 2.4 L (3.5-5.0) g/dL Procalcitonin (0.02-0.09) ng/mL Urine Protein (Negative) Thrombosis Risk Factor Assmnt - Choose All That Apply Any of the Below Risk Factors Present?: No Other Risk Factors: Yes Each Risk Factor Represents 2 Points: Age 61-74 years Thrombosis Risk Factor Assessment Total Risk Factor Score: 2 Thrombosis Risk Factor Assessment Level: Low Risk Assessment and Plan Assessment: 1. Febrile and hypotensive 2. Recent admission for CVA 3. Recent diagnosis of seizures patient was transferred to [facility] approximately 3 weeks ago. Attempting to obtain medical records 4. History of essential hypertension 5. History of PEG tube placement DVT prophylaxis Lovenox. GI prophylaxis Protonix Blood and urine cultures ordered Patient started on IV Rocephin Infectious disease services consulted Repeat labs ordered Time with Patient: Greater than 30 (Greater than 60% of the total time spent in counseling and coordination of care)
[2023-10-17] MEDS: LACOSAMIDE 10 MG/ML PO SCH (12:07)
[2023-10-17 12:18] VITALS: BMI 20.9
[2023-10-17 14:18] VITALS: BP 132/69; PULSE 92; RESP 18; TEMP 98
--- NOTE | 2023-10-17 14:32 | P.HPADDEND ---
H&P Addendum H&P Addendum Date: 10/17/23 This is an addendum to the H&P on 10/17/2023 Patient was seen and examined in the emergency room Consultation for neurology was requested Case was discussed with Dr. Abhinav duggan neurologist, he is recommending that patient be transferred to [facility] where he was admitted 2 weeks ago for similar complaints I contacted the [facility] transfer line, I spoke to a physician and he accepted patient to transfer. At this time we are awaiting for bed availability for transfer.
[2023-10-17] MEDS ORDERED: LORazepam 2 MG/ML INJ IV PRN (16:20)
[2023-10-17] MEDS ORDERED: ATORVASTATIN 80 MG TAB PO SCH (21:00)
[2023-10-18] MEDS ORDERED: ENOXAPARIN 40 MG/0.4 ML SYRINGE SQ SCH (09:00)
--- NOTE | 2023-10-18 09:36 | P.CNNES ---
History of Present Illness Consult date: 10/17/23 Requesting physician: Tony Kathleen Reason for Consult: recently seen, hx of seizure History of Present Illness: There is a 68-year-old gentleman with recent onset of stroke, seizure presents the emergency department because of confusion and fever. Patient is known to our neurology team and was initially seen by our team. Patient had recent stroke on the third week of August 2023 as well as new onset seizure and had exte nsive workup in our facility and had to be eventually transferred to [facility] on 09/25/2023 and had also extensive workup then eventually discharged on 10/07/2023 home. According to the girlfriend who is at bedside and provides the history she stated that when he was discharged he was mowing the lawn working on his car. But in the last 2 days he has been having confusion episodes and she felt he is having upper extremity jerks and recently in the last 2 days she noticed that he had a fever. An example of one of his confusion is when he was working on the PEG he could not operate it. Another example is when they passed by a place he had said the wrong words. She contacted [facility] but did not get a response so she brought him to this facility. Currently she feels his confusion is improved. Patient is discharged on Depakote 500 mg every 8 hours from [facility] as well as Vimpat 200 mg twice daily via PEG tube and he is compliant taking the medication. Patient denies of any headache, nausea or vomiting. Denies of any visual disturbance, numbness. Since his recent hospitalization he has dysphagia which is not new, has mild left- sided weakness predominantly leg but is able to walk without any assistance. Always had mild residual dysarthria from his recent stroke. Of Note, patient was evaluated by our neurology team on the third week of August 2023 because of confusion. Presentation he had left upper extremity weakness neglect in the left arm. He also had seizure-like activity in the ED. Concern for possible stroke in our facility over the right inferior parietal region and small area in the left periventricular white matter near the left occipital horn and MRI of the brain.. Initial EEG was normal. Patient had cerebrospinal fluid in our facility and the white blood cell was 1, protein 77 HSV PCR is negative. Patient had worsening of the confusion with staring off and had a repeat EEG which showed continuous periodic lateralized Epifoam discharges over the right hemisphere region. Before patient was eventually transferred to [facility] for escalation of care requiring prolonged EEG. Please refer to Dr. Leigh's note for further details. At [facility] the girlfriend provided me with the discharge note and seems that the patient had a long-term EEG from 09/25 to 09/28/2023. It revealed mild to moderate encephalopathy with right posterior quadrant LPD+F were markers for focal cortical irritability that did not show any definite evolution or clinical correlation. The 5 event of confusion and staring were without ictal changes on the EEG. Patient was on Depakote 500 mg every 8 hours and Vimpat 200 mg twice daily via PEG tube. Patient had paraneoplastic panel which seems unremarkable. He had CSF study and total nucleated cells with 6, elevated protein 74 and negative for herpes. Patient had 2 MRIs of the brain and the most recent MRI on 10/06/2023 was reported as it showed improved restricted diffusion in the right frontal parietal lobe. Flair changes in the left parietal lobe consistent with a subacute infarct. Patient had a transesophageal echocardiogram and the ejection fraction is 55%. Negative bubble study. No thrombus. The stroke was suspected to to be cryptogenic and was discharged on aspirin, Plavix and statin. His NIH stroke scale on discharge was a 2. During this hospital visit consisted of: Initial temp is 102.6F and repeat 101.3 then resolved. wbc is 8.4K Hemoglobin is 8.3, platelets 136K. Repeat platelet is 1 64,000. Sodium is 134, potassium is 5.8 and the repeated is normal. Also creatinine on presentation is 1.33 and repeat it is 1.97 Plasma lactic acid is 1.2 Calcium is 8.5, AST is 65 ALT is 30 and on repeat it is normalized. CRP is 24.9 Urinalysis seems negative for UTI. Valproic acid level is 55.3 (normal is 50-120). Review of Systems The positive and negative as per HPI. Past Medical History Past Medical History: CVA/TIA, Hypertension, Seizure Disorder History of Any Multi-Drug Resistant Organisms: None Reported Past Surgical History: No Surgical Hx Reported Past Psychological History: No Psychological Hx Reported Smoking Status: Former smoker Past Alcohol Use History: None Reported Past Drug Use History: None Reported Medications and Allergies Home Medications Medication Instructions Recorded Confirmed Type Aspirin EC [Ecotrin Low Dose] 81 mg PO DAILY 10/16/23 10/16/23 History Atorvastatin [Lipitor] 80 mg PO HS 10/16/23 10/16/23 History Clopidogrel [Plavix] 75 mg PO DAILY 10/16/23 10/16/23 History Lacosamide [Vimpat Oral Soln] 200 mg PO BID 10/16/23 10/16/23 History Losartan [Cozaar] 50 mg PO DAILY 10/16/23 10/16/23 History Valproic Acid Oral Soln [Depakene 500 mg PO TID@0600,1400,2200 10/16/23 10/16/23 History Syrup] Allergies Allergy/AdvReac Type Severity Reaction Status Date / Time No Known Allergies Allergy Verified 10/16/23 19:52 Physical Examination - Vital Signs Vital Signs: Vital Signs Temp Pulse Pulse Resp BP BP Pulse Ox 10/17/23 14:00 98.0 F 92 18 132/69 95 10/17/23 07:32 98.1 F 101 H 16 100/57 95 10/17/23 07:00 74 16 116/54 95 10/17/23 06:00 98.4 F 92 18 110/67 98 10/17/23 03:00 91 16 111/72 98 10/17/23 01:30 89 16 104/66 98 10/17/23 00:00 98.7 F 98 16 126/54 95 10/16/23 22:00 84 16 122/64 96 10/16/23 20:20 82 17 94/63 97 10/16/23 18:30 90 20 89/48 100 10/16/23 18:00 101.3 F H 93 20 102/61 98 10/16/23 17:51 94 18 102/61 97 10/16/23 17:27 102.6 F H 102 H 20 88/51 96 Intake and Output 10/17/23 10/17/23 10/17/23 06:59 14:59 22:59 Other: Voiding Method Toilet Urinal Weight 70.307 kg GENERAL: The patient is lying in bed and is not in acute distress. HENT: Supple neck. NEUROLOGICAL: Higher mental function: The patient is awake, alert, oriented to self, place and time. Patient is following commands. No aphasia and no neglect. Cranial nerves: The pupils are round, equal and reactive to light and accommodation. Visual pride are full to confrontation throughout. Extraocular movement is intact no nystagmus is noted. Facial sensation is normal to touch throughout. The facial strength is normal throughout. Hearing is severely decreased to hand rub bilaterally. Tongue is midline and moved [id number] without any difficulty. Subtle dysarthria is noted. Shoulder shrug is normal bilaterally. Motor: The strength is left forearm flexion is 5-. Left lower extremity is 4+ to 5- proximally. Otherwise 5 over 5 throughout. Normal tone and bulk. Cerebellum: Normal finger to nose bilaterally. Sensation: Sensation is normal to touch throughout. Reflexes (right/left):1+ but limited since was resisting.. Plantars are mute bilaterally. Results - Laboratory Findings CBC and BMP: 10/17/23 08:18 10/17/23 08:18 Abnormal Lab Findings: Abnormal Labs 10/16/23 10/16/23 10/16/23 17:47 17:47 18:29 RBC 2.44 L Hgb 8.3 L D Hct 23.8 L MCV Plt Count 136 L Lymphocytes # 0.8 L Monocytes # Sodium 134 L Potassium 5.8 H Chloride BUN 36 H Creatinine 1.33 H Glucose 108 H Calcium AST 65 H C-Reactive Protein Total Protein Albumin 3.1 L Procalcitonin Urine Protein 1+ H 10/16/23 10/16/23 10/17/23 23:42 Unknown 08:18 RBC 2.57 L Hgb 8.4 L Hct 25.7 L MCV 100.1 H Plt Count Lymphocytes # 0.6 L Monocytes # 1.1 H Sodium Potassium Chloride BUN Creatinine Glucose Calcium AST C-Reactive Protein 24.9 H Total Protein Albumin Procalcitonin 0.25 H Urine Protein 10/17/23 08:18 RBC Hgb Hct MCV Plt Count Lymphocytes # Monocytes # Sodium Potassium Chloride 110 H BUN 23 H Creatinine Glucose Calcium 7.5 L AST C-Reactive Protein Total Protein 5.2 L Albumin 2.4 L Procalcitonin Urine Protein Assessment and Plan Assessment: This is a 68-year-old gentleman initially presented to our facility on the third week of August 2023 for confusion. It seems that he had stroke and seizure and had extensive work-up. He was eventually transferred to [facility] on 09/25/2023 because of requiring prolonged EEG since that repeat EEG showed periodic lateralized discharges and the patient was more confused staring off. At [facility] patient had extensive workup and eventually discharged on 10/06/2023 (EEG showed right posterior quadrant LPD+F were markers for focal cortical irritability that did not show any definite evolution or clinical correlation. MRI showed subacute stroke) . He had a total of two CSF studies one at our facility and at [facility] and both negative, paraneoplastic panel negative at outside facility. In the last two days he has been having confusion with body jerks and fever. Body jerks: Possible continuing to have focal seizure. Currently is Oriented X3. Pyrexia: Rule out underlying infection vs central cause from seizure or stroke. Wbc is normal.---Pyrexia resolved History of recent stroke and most recent MRI Brain at outside facility on 10/06/2023 reported: It showed improved restricted diffusion in the right frontal parietal lobe. Flair changes in the left parietal lobe consistent with a subacute infarct. Had DEB and negative for thrombus. Patient has residual mild left sided weakness, subtle dysarthria. History of recent seizure On Depakote and Vimpat Dysphagia likely due to stroke s/p PEG tube Hard of hearing. Tobacco use Plan: I ordered a CT of the head, Vimpat level Patient is resumed on his home dose of Vimpat 200 mg twice daily and Depakote 500 mg every 8 hours. Girlfriend is concerned if his symptoms are due to medication side effect but I feel we need to rule out underlying seizure since she was doing well with this medication a couple days ago. I recommend the patient to be transferred to [facility] for prolonged EEG Seizure precautions seizure pads Patient was resumed on his home dose of aspirin 81mg, Plavix 75mg daily and lipitor 80mg daily. I.D. team is consulted. Will defer the rest of medical management to the primary team. The plan is discussed in length with patient, his girlfriend, primary attending and nurse. Thank you for the consultation. Spend a total of 60 minutes on care. Time with Patient: Greater than 30
== END 2023-10-17 16:55 | disposition short-term general hospital (02) | DRG 316 ==
LOC: EC 17:24 → 5NMEDONC 19:41
PROVIDERS: ADMIT Internal Medicine; ATTEND Internal Medicine
PROC: 3E0G76Z Introduction of Nutritional Substance into Upper GI, Via Natural or Artificial Opening (ICD-10-PCS; principal; 2023-10-16)
DX: I95.9 Hypotension, unspecified (principal); R50.9 Fever, unspecified; G40.909 Epilepsy, unspecified, not intractable, without status epilepticus; H91.90 Unspecified hearing loss, unspecified ear; I69.322 Dysarthria following cerebral infarction; F17.200 Nicotine dependence, unspecified, uncomplicated; I11.9 Hypertensive heart disease without heart failure; I69.391 Dysphagia following cerebral infarction; Z79.02 Long term (current) use of antithrombotics/antiplatelets; Z79.82 Long term (current) use of aspirin; Z79.899 Other long term (current) drug therapy; Z93.1 Gastrostomy status
CPT/HCPCS: 36415; 71046; 80053; 80164; 80235; 81001; 83605; 84145; 85025; 85610; 85730; 86140; 87040; 87086; 87636; 93005; 96361; 96365; 96366; 96367; 96375; 96376; 99285

== ENCOUNTER 2024-01-08 14:44 | Emergency (ER) | payer MEDICARE ==
--- NOTE | 2024-01-08 15:08 | ED ---
Skin/Abscess/FB HPI - General Stated complaint: Fall- R arm injury Time Seen by Provider: 01/08/24 15:01 Source: patient, RN notes reviewed - History of Present Illness Initial comments: 5-year-old male presents emergency department chief complaint of a injury to his right forearm. Patient states that he was outside doing yard work and cutting IV when he came bedside took up his longsleeve shirt and realized that there was a area of bruising and laceration to his right arm. Patient denies falling, hitting his head, or loss conscious at the time of this event. Patient denies blood thinner use, states that he is on a daily 81 mg aspirin. Unaware of when his last tetanus vaccination was. No other acute complaints at this time. - Related Data Home Medications Medication Instructions Recorded Confirmed Aspirin EC [Ecotrin Low Dose] 81 mg PO DAILY 10/16/23 10/16/23 Atorvastatin [Lipitor] 80 mg PO HS 10/16/23 10/16/23 Clopidogrel [Plavix] 75 mg PO DAILY 10/16/23 10/16/23 Lacosamide [Vimpat Oral Soln] 200 mg PO BID 10/16/23 10/16/23 Losartan [Cozaar] 50 mg PO DAILY 10/16/23 10/16/23 Valproic Acid Oral Soln [Depakene 500 mg PO TID@0600,1400,2200 10/16/23 10/16/23 Syrup] Allergies Allergy/AdvReac Type Severity Reaction Status Date / Time No Known Allergies Allergy Verified 10/16/23 19:52 Review of Systems ROS Statement: Those systems with pertinent positive or pertinent negative responses have been documented in the HPI. ROS Other: All systems not noted in ROS Statement are negative. Past Medical History Past Medical History: CVA/TIA, Hypertension, Seizure Disorder History of Any Multi-Drug Resistant Organisms: None Reported Past Surgical History: No Surgical Hx Reported Past Psychological History: No Psychological Hx Reported Smoking Status: Former smoker Past Alcohol Use History: None Reported Past Drug Use History: None Reported General Exam General appearance: alert, in no apparent distress Eye exam: Present: normal appearance, PERRL, EOMI. Absent: scleral icterus, conjunctival injection, periorbital swelling Neck exam: Present: normal inspection. Absent: tenderness, meningismus, lymphadenopathy Respiratory exam: Present: normal lung sounds bilaterally. Absent: respiratory distress, wheezes, rales, rhonchi, stridor Cardiovascular Exam: Present: regular rate, normal rhythm, normal heart sounds. Absent: systolic murmur, diastolic murmur, rubs, gallop, clicks GI/Abdominal exam: Present: soft, normal bowel sounds. Absent: distended, tenderness, guarding, rebound, rigid Right Forearm Wrist exam: Present: tenderness, laceration (2 cm), ecchymosis (anteriorforearm) Neuro motor exam: Present: wrist extension intact, thumb opposition intact Vascular: Present: radial pulse (2+). Absent: vascular compromise Back exam: Present: normal inspection Skin exam: Present: warm, dry, intact, normal color. Absent: rash Course Vital Signs 01/08/24 01/08/24 16:05 17:30 Temperature 98 F 98 F Pulse Rate 73 70 Respiratory 16 16 Rate Blood Pressure 148/98 137/72 O2 Sat by Pulse 98 98 Oximetry Medical Decision Making - Medical Decision Making Was pt. sent in by a medical professional or institution (, PA, BEAD FILLER, urgent care, hospital, or assisted...) When possible be specific @ -No Did you speak to anyone other than the patient for history (EMS, parent, family, police, friend...)? What history was obtained from this source @ -No Did you review nursing and triage notes (agree or disagree)? Why? @ -I reviewed and agree with nursing and triage notes Were old charts reviewed (outside hosp., previous admission, EMS record, old EKG, old radiological studies, urgent care reports/EKG's, assisted records)? Report findings @ -No old charts were reviewed Differential Diagnosis (chest pain, altered mental status, abdominal pain women, abdominal pain men, vaginal bleeding, weakness, fever, dyspnea, syncope, headache, dizziness, GI bleed, back pain, seizure, CVA, palpatations, mental health, musculoskeletal)? @ -Laceration, avulsion, hematoma, contusion, this list not all inclusive EKG interpreted by me (3pts min.). @ -None X-rays interpreted by me (1pt min.). @ -None done CT interpreted by me (1pt min.). @ -None done U/S interpreted by me (1pt. min.). @ -None done What testing was considered but not performed or refused? (CT, X-rays, U/S, labs)? Why? @ -None What meds were considered but not given or refused? Why? @ -None Did you discuss the management of the patient with other professionals (professionals i.e. , PA, BEAD FILLER, lab, RT, psych nurse, dialysis social worker, zanjero, teacher, police patrol officer, nurse case management)? Give summary @ -No Was smoking cessation discussed for >3mins.? @ -No Was critical care preformed (if so, how long)? @ -No Were there social determinants of health that impacted care today? How? (Homelessness, low income, unemployed, alcoholism, drug addiction, transportation, low edu. Level, literacy, decrease access to med. care, group home, rehab)? @ -No Was there de-escalation of care discussed even if they declined (Discuss DNR or withdrawal of care, Hospice)? DNR status @ -No What co-morbidities impacted this encounter? (DM, HTN, Smoking, COPD, CAD, Cancer, CVA, ARF, Chemo, Hep., AIDS, mental health diagnosis, sleep apnea, morbid obesity)? @ -None Was patient admitted / discharged? Hospital course, mention meds given and route, prescriptions, significant lab abnormalities, going to OR and other pertinent info. @ -Discharge. 5-year-old male with a bruise and laceration to the right for earm. I examination patient noted to have a centimeter skin avulsion that is not amenable to suture repair as the depth. Patient's wound was cleansed with sterile water and Steri-Strips applied over top and Coban placed over top of the area. Patient is provided with tetanus vaccination instructed to continue to ice affected area and use Tylenol as needed for symptomatic relief. All questions answered at bedside and strict return prior discussed with the patient he is verbalized understanding. Discussed with Dr. Crespo. Undiagnosed new problem with uncertain prognosis? @ -No Drug Therapy requiring intensive monitoring for toxicity (Heparin, Nitro, Insulin, Cardizem)? @ -No Were any procedures done? @ -No Diagnosis/symptom? @ -hematoma, skin avulsion Acute, or Chronic, or Acute on Chronic? @ -acute Uncomplicated (without systemic symptoms) or Complicated (systemic symptoms)? @ -uncomplicated Side effects of treatment? @ -No Exacerbation, Progression, or Severe Exacerbation? @ -No Poses a threat to life or bodily function? How? (Chest pain, [place], [place], pneumonia, PE, COPD, DKA, ARF, appy, cholecystitis, CVA, Diverticulitis, Homicidal, Suicidal, threat to staff... and all critical care pts) @ -No Disposition Clinical Impression: Laceration, Skin avulsion, Hematoma Disposition: HOME SELF-CARE Condition: Good Instructions (If sedation given, give patient instructions): Skin Tear (ED) Additional Instructions: Return to the emergency department for any new or worsening symptoms. Continue to keep area clean and dry. Is patient prescribed a controlled substance at d/c from ED?: No Referrals: Katlyn Solis MD [Primary Care Provider] - 1-2 days Time of Disposition: 16:37
[2024-01-08 16:07] VITALS: RESP 16; TEMP 98
[2024-01-08] MEDS: DIPH,PERTUS(ACELL)TETVAC-LF 0.5 ML VIAL IM ONE (17:24)
[2024-01-08 17:31] VITALS: BP 137/72; PULSE 70
== END 2024-01-08 17:30 | disposition home or self-care (01) ==
LOC: EC 14:44
CPT/HCPCS: 90471; 90715; 99282

== ENCOUNTER → 2024-02-10 | Outpatient (CLI) | payer MEDICARE ==
--- NOTE | 2024-02-10 11:40 | FL ---
COMPARISON: NONE DATE OF EXAM: 02/10/2024 HISTORY: Dysphagia A number of thin and thick substances were ingested under the care of the department of speech pathol ogy. Transient penetration with thin barium. There is no evidence of penetration. Vallecular pooling \residuals. There is no evidence of obstruction. DAP are not provided. IMPRESSION: 1. Transient penetration but no evidence of penetration. [facility], , 02/10/2024 11:38 AM
== END | disposition home or self-care (01) ==
LOC: RADFLMAIN 10:56
PROVIDERS: ATTEND Family Medicine
CPT/HCPCS: 74230

== ENCOUNTER → 2024-04-08 | Outpatient (CLI) | payer MEDICARE ==
[2024-04-08 12:37] LABS: African American GFR (CKD) 73 (>60 ml/min/1.73 sqM); Blood Urea Nitrogen 23 mg/dL (9-20); Non-African American GFR(CKD) 63 (>60 ml/min/1.73 sqM)
--- NOTE | 2024-04-08 15:27 | CT ---
INDICATION: Patient age:Male; 68 years old; Reason for study: I71.40 ABDOMINAL AORTIC ANEURYSM, WITHOUT RUPTURE,; [facility]. COMPARISON: None TECHNIQUE: Multiple thin slice sub-millimeter images were obtained through the abdomen before and aft er administration of contrast. Patient was given Isovue 370, 100 cc intravenously. 3-D reconstructe d images and maximum intensity projection images were obtained of the abdominal aorta and its branche s. One or more CT dose reduction strategies were utilized during this examination. DLP administered was mGycm. FINDINGS: CTA Abdomen : Aneurysmal dilatation of the descending thoracic aorta just above the hiatus measuring up to 4.1 cm. Fusiform infrarenal abdominal aortic aneurysm beginning just below the renal arteries a nd extending to the bifurcation. This measures 5.5 x 6.0 cm. No evidence for intramural hematoma. The re is left infrarenal abdominal aortic draping along the left iliopsoas with thrombosis (series 9, im age 72). There is heterogenous attenuation identified within the abdominal aorta aneurysm. No retrope ritoneal hemorrhage. There is moderate amount of eccentric mural thrombus identified. Atherosclerotic calcifications aorta and its branches. Right common iliac artery fusiform aneurysm measuring up to 3 .2 cm. Left common iliac artery fusiform aneurysm measuring up to 2.5 cm. The origins of the superior mesenteric artery, renal arteries, and celiac axis are patent. Moderate stenosis of the origin of th e celiac axis secondary to noncalcified plaque. Poor visualization of the origin of the KRISTOPHER with dist al reconstitution. Atherosclerotic plaquing with minimal mural thrombus formation is identified in th e common iliac arteries. VISCERA ABDOMEN: Liver: Unremarkable. Gallbladder and Bile ducts: Unremarkable. Pancreas: Unremarkable. Spleen: Unremarkable. Adrenal glands: Unremarkable. Kidneys and Ureters: No hydronephrosis or renal calculus. Stomach and Bowel: No evidence of bowel obstruction or bowel wall thickening. Extensive descending co lonic diverticulosis without evidence for acute diverticulitis. Peritoneum: No evidence of pneumoperitoneum, free fluid, or adenopathy. Vasculature: Unremarkable. No aortic aneurysm. Musculoskeletal: The osseous structures appear intact. Degenerative changes of the SI joints with lef t anterior bridging. Multilevel degenerative changes of the visualized spine. Grade 1 anterolisthesis of L4 on L5 without evidence of pars defects. LOWER CHEST: Mild bibasilar dependent subsegmental atelectasis. IMPRESSION: 1. Infrarenal abdominal aortic aneurysm with contained thrombosed rupture. Vascular surgery consultat ion is recommended. 2. Descending thoracic aortic aneurysm. Attempted to call ordering provided with no response. A [place] critical message alert has been ini tiated for Tong Cheema MD via the [email or web address] Critical Results System on 04/08/2024 3:24 PM. This message alert has been sent to Tong Cheema MD via the preferences provided by the clinician for the receipt of Radiology Critical Findings. Message ID [id number]. [facility], , 04/08/2024 3:25 PM
== END | disposition home or self-care (01) ==
LOC: RADCTMAIN 12:03
PROVIDERS: ATTEND Internal Medicine Interventional Cardiology
DX: I71.43 Infrarenal abdominal aortic aneurysm, without rupture (principal); I71.23 Aneurysm of the descending thoracic aorta, without rupture
CPT/HCPCS: 82565; 84520; 74175; 36415; Q9967

== ENCOUNTER → 2024-10-03 | Outpatient (CLI) | payer MEDICARE ==
--- NOTE | 2024-10-03 12:43 | FL ---
EXAMINATION TYPE: FL barium swallow w video DATE OF EXAM: 10/03/2024 MODIFIED SWALLOW / DEGLUTITION STUDY CLINICAL HISTORY: Dysphagia. History of tracheostomy and AAA repair. TECHNIQUE: Deglutition study is performed utilizing thin liquid barium, honey and nectar thick liqui d barium, barium thick pudding, and barium coated cracker. 1 minute 51 seconds of fluoro time and 0 images obtained. Total dose area product (DAP) in uGy*m?, mGy*cm? (or similar): n/p COMPARISON: None. FINDINGS: The oral and pharyngeal phases show satisfactory initiation and propagation with all modali ties tested. Normal mastication is seen with solid modalities tested. Single episode of silent aspir ation of residuals. No aspiration with chin tuck procedure. [id number] pharyngeal residuals wer e appreciated. IMPRESSION: As above. Please refer to speech therapist notes for further details if necessary. [facility], , 10/03/2024 12:41 PM
== END | disposition home or self-care (01) ==
LOC: RADFLMAIN 11:53
PROVIDERS: ATTEND Family Medicine
DX: R13.10 Dysphagia, unspecified (principal); Z86.79 Personal history of other diseases of the circulatory system
CPT/HCPCS: 74230

== ENCOUNTER 2024-10-18 07:00 | Day surgery (SDC) | payer MEDICARE ==
[~2024-10-18 07:00] MED LIST: HYDROmorphone 0.5 MG/0.5 ML SYRINGE IVP PRN; LACTATED RINGERS 1,000 ML IV SCH; LIDOCAINE 1% (10MG/ML) FOR IV START INTRADERMA PRN; MIDAZOLAM 2 MG/2 ML VIAL IV PRN
[2024-10-18] MEDS: IV FLUID CONTINUATION 1,000 ML IV ONE (07:43)
[2024-10-18] MEDS: DEXAMETHASONE SOD PHOSPHATE 4 MG/ML 1 ML VIAL IV ONE (08:42)
[2024-10-18] MEDS: fentaNYL (PF) 50 MCG/ML 2 ML AMP IVP PRN (08:45)
[2024-10-18] MEDS: ONDANSETRON 4 MG/2 ML VIAL IVP ONE (08:49)
--- NOTE | 2024-10-18 08:56 | P.ANPRN ---
Procedure Note - Anesthesia - Nerve Block Performed Right Other (see comment) Single Time Out Performed: Yes Date of Procedure: 10/18/24 Procedure Start Time: 08:45 Procedure Stop Time: 08:55 Location of Patient: PreOp Indication: Acute Post-Operative Pain, Requested by Surgeon Sedation Type: Sedate with meaningful contact maintained Preparation: Sterile Prep Position: Supine Needle Types: Pajunk Needle Gauge: 21 Ultrasound used to visualize needle placement: No Ultrasound used to observe medication spread: No Injectate: 0.5% Ropivacaine (see comment for volume) (20 ml total) Narrative: left ankle block
[2024-10-18] MEDS ORDERED: PROPOFOL 10 MG/ML 20 ML VIAL IV ONE (09:27)
[2024-10-18] MEDS ORDERED: fentaNYL (PF) 50 MCG/ML 2 ML AMP ONE (09:27)
[2024-10-18] MEDS ORDERED: ROPIVACAINE 5 MG/ML 30 ML VIAL ONE (09:27)
[2024-10-18] MEDS ORDERED: PHENYLEPHRINE-0.9% NACL SYG 1,000 MCG/10 ML SYRINGE ONE (09:27)
--- NOTE | 2024-10-18 09:33 | P.HPIHPCON ---
History of Present Illness H&P Date: 10/18/24 Patient 69-year-old male with multiple medical comorbidities and significant previous arterial insufficiency after aortobifemoral bypass in open fasciotomy. He continues to have areas of gangrene on his toes that are dry at this time. He presents today for fifth toe amputation and debridement of the remainder with possible partial amputations. Risks and benefits were discussed, he has life seeming understand are willing to proceed. Consent for Procedure: I have explained the operation/procedure to the patient, including the risks, benefits, side effects, alternative therapies (including not receiving the proposed treatment or service), the likelihood of the patient achieving his/her goals, and potential recuperation problems for the procedure/sedation/analgesia, as well as any blood products, if indicated. I also explained to the patient the risks, benefits and side effects of the alternatives, as well as the risks related to not receiving the proposed procedure, care, treatment, or services. Past Medical History Past Medical History: CVA/TIA, Hypertension, Seizure Disorder Additional Past Medical History / Comment(s): dry gangrene 5th digit,and toes 1,2,4 rt foot,very weak, stand and pivot to transfer independent from bed to w/c, unable to have full dorsiflexion rt foot, able to walk with walker w/ PT at [id number]-had seizure at that time-none since History of Any Multi-Drug Resistant Organisms: None Reported Past Surgical History: No Surgical Hx Reported Additional Past Surgical History / Comment(s): abdominal aorta aneurysm repair 07-22-24(complications post surgery,low b/p,compartmental syndrome rt leg- fasciotomy done,intubated x2, tracheostomy,renal injury had dialysis for a few weeks,swallowing problems had peg tube insertion-swallowing now improving able to have chopped foods,still uses peg tube for meds),tracheostomy closed,[place] cataracts,. Peg tube insertion September 2023 after stroke then removed in Jan 2024. Additional Past Anesthesia/Blood Transfusion Reaction / Comment(s): no complications with prior blood transfusions. significant b/p drop with epidural for AAA Smoking Status: Former smoker - Past Family History Mother Family Medical History: No Reported History Additional Family Medical History / Comment(s): lived into 90s Father Additional Family Medical History / Comment(s): in his 80s with fall and injury to head Medications and Allergies Home Medications Medication Instructions Recorded Confirmed Type Aspirin EC [Ecotrin Low Dose] 81 mg PEG/G-TUBE DAILY 10/16/23 10/18/24 History Atorvastatin [Lipitor] 80 mg PEG/G-TUBE DAILY 10/16/23 10/18/24 History Acetaminophen Tab [Tylenol] 650 mg PEG/G-TUBE Q6H PRN 10/17/24 10/18/24 History Amiodarone [Cordarone] 200 mg PEG/G-TUBE QAM 10/17/24 10/18/24 History Cephalexin [Keflex] 500 mg PEG/G-TUBE Q8HR 10/17/24 10/18/24 History Epoetin Toro-Epbx [Retacrit] 8,000 units SQ DAILY 10/17/24 10/18/24 History Heparin Sodium,Porcine (1 ml) 5,000 unit SQ Q12HR 10/17/24 10/18/24 History [Heparin Sodium] Lacosamide [Vimpat] 200 mg PEG/G-TUBE BID 10/17/24 10/18/24 History Loperamide HCl [Loperamide] 2 mg PEG/G-TUBE Q8H PRN 10/17/24 10/18/24 History Omeprazole [PriLOSEC] 40 mg PEG/G-TUBE QAM 10/17/24 10/18/24 History Ondansetron [Ondansetron ODT] 4 mg PEG/G-TUBE Q8H PRN 10/17/24 10/18/24 History Renal Vit 0.6mg B-Comp/C/Folic 1 dose PEG/G-TUBE DAILY 10/17/24 10/18/24 History Sucralfate [Carafate] 1 gm PEG/G-TUBE QID 10/17/24 10/18/24 History oxyCODONE HCL [oxyCODONE HCL (IR)] 5 mg PEG/G-TUBE Q6H PRN 10/17/24 10/18/24 History Allergies Allergy/AdvReac Type Severity Reaction Status Date / Time No Known Allergies Allergy Verified 10/18/24 07:48 Surgical - Exam Vital Signs Temp Pulse Resp BP Pulse Ox 97.7 F 95 18 116/73 100 10/18/24 07:50 10/18/24 07:50 10/18/24 07:50 10/18/24 07:50 10/18/24 07:50 General pleasant cooperative chronically ill-appearing male in no acute distress. HEENT is normocephalic, some muscle wasting. Heart appears regular at this time. No respiratory distress. Abdomen is soft. Extremities no clubbing. The right lower extremity does have areas of gangrene of the fifth toe and lateral metatarsal. The tips of the 1st, 2nd and 4th toes have some degree of dry gangrene.. Assessment and Plan Assessment: Dry gangrene right lower extremity Previous aortobifemoral bypass Previous fasciotomy for compartment syndrome Previous stroke requiring trach and PEG Plan: Plan for fifth toe amputation and debridement of remaining toes
--- NOTE | 2024-10-18 10:35 | P.OP ---
Date of Procedure: 10/18/24 Description of Procedure: SURGEON: Susie Fritz DO CAR CHECKER: None PREOPERATIVE DIAGNOSIS: Dry gangrene right lower extremity multiple toes. POSTOPERATIVE DIAGNOSIS: Same. OPERATION: Right fifth toe ray amputation Sharp excisional debridement first toe 4 x 3 x 0.2cm to subcutaneous tissue Sharp excisional debridement second toe 2 x 1 x 0.2cm to subcutaneous tissue fifth toe amputation. Sharp excisional debridement fourth toe 1.7 x 1.5 x 0.2cm to subcutaneous tissue Sharp excisional debridement right heel 2 x 1 x 0.2 cm to subcutaneous tissue ANESTHESIA: Sedation with block ESTIMATED BLOOD LOSS: 5 cc SPECIMENS REMOVED: Right fifth toe and eschar for disposal COMPLICATIONS: None OPERATIVE FINDINGS: Patient is a 69-year-old male with previous vascular interventions subsequent need for fasciotomy and currently with toes with dry gangrene. Due to this and continued nonhealing the discussion was had with going forward with debridement. The need is also for a lateral fifth toe amputation due to the amount of eschar on the toe and inferior portion of the foot. Risk and benefits are discussed. He seems understand and willing to proceed. DESCRIPTION OF PROCEDURE: This patient was brought to the operating room, block was done in the preprocedural area. IV sedation was given. The operative foot was prepped and draped in sterile manner. An incision was made at the base of the fifth toe deep into skin and fascia on plantar and dorsal aspect until we reached the head of the metatarsal bone.. The bone was transected at this point, the eschar was removed from the plantar portion of the wound and lateral side. The bone was cleared of the tissue and a bone cutter was used to transect the metatarsal at the midportion. The subcutaneous tissue was sharply debrided with a curette. The bone appeared healthy at this portion. The majority of good granulation appearing tissue with some degree of borderline fatty tissue was left in place. The resultant wound measured 7 x 3 x 1 cm and hopefully will have a wound VAC placed as outpatient. The remainder of the toes with eschar were sharply debrided using scissors and scalpel to the level of more healthy appearing tissue. There was some healthy appearing tissue below this, likely the patient will need some degree of further partial toe amputations at least the 1st and 4th toes. Will continue with local wound care otherwise to allow further demarcation of healthier tissue. At the right lateral wound, 3-0 Vicryl was used to reapproximate some of the tissue to overlie the bone. For dressings, the Puracol Ag was placed at the lateral portion of the wound. And further dressings were placed. Patient was transferred recovery in stable condition. Plan - Discharge Summary Discharge Rx Participant: No New Discharge Prescriptions: No Action Atorvastatin [Lipitor] 80 mg PEG/G-TUBE DAILY Aspirin EC [Ecotrin Low Dose] 81 mg PEG/G-TUBE DAILY Omeprazole [PriLOSEC] 40 mg PEG/G-TUBE QAM oxyCODONE HCL [oxyCODONE HCL (IR)] 5 mg PEG/G-TUBE Q6H PRN PRN Reason: Pain Ondansetron [Ondansetron ODT] 4 mg PEG/G-TUBE Q8H PRN PRN Reason: Nausea Loperamide HCl [Loperamide] 2 mg PEG/G-TUBE Q8H PRN PRN Reason: loose stools Cephalexin [Keflex] 500 mg PEG/G-TUBE Q8HR Lacosamide [Vimpat] 200 mg PEG/G-TUBE BID Epoetin Toro-Epbx [Retacrit] 8,000 units SQ DAILY Acetaminophen Tab [Tylenol] 650 mg PEG/G-TUBE Q6H PRN PRN Reason: Pain Heparin Sodium,Porcine (1 ml) [Heparin Sodium] 5,000 unit SQ Q12HR Amiodarone [Cordarone] 200 mg PEG/G-TUBE QAM Sucralfate [Carafate] 1 gm PEG/G-TUBE QID Renal Vit 0.6mg B-Comp/C/Folic 1 dose PEG/G-TUBE DAILY Discharge Medication List Aspirin EC [Ecotrin Low Dose] 81 mg PEG/G-TUBE DAILY 10/16/23 [History] Atorvastatin [Lipitor] 80 mg PEG/G-TUBE DAILY 10/16/23 [History] Acetaminophen Tab [Tylenol] 650 mg PEG/G-TUBE Q6H PRN 10/17/24 [History] Amiodarone [Cordarone] 200 mg PEG/G-TUBE QAM 10/17/24 [History] Cephalexin [Keflex] 500 mg PEG/G-TUBE Q8HR 10/17/24 [History] Epoetin Toro-Epbx [Retacrit] 8,000 units SQ DAILY 10/17/24 [History] Heparin Sodium,Porcine (1 ml) [Heparin Sodium] 5,000 unit SQ Q12HR 10/17/24 [History] Lacosamide [Vimpat] 200 mg PEG/G-TUBE BID 10/17/24 [History] Loperamide HCl [Loperamide] 2 mg PEG/G-TUBE Q8H PRN 10/17/24 [History] Omeprazole [PriLOSEC] 40 mg PEG/G-TUBE QAM 10/17/24 [History] Ondansetron [Ondansetron ODT] 4 mg PEG/G-TUBE Q8H PRN 10/17/24 [History] Renal Vit 0.6mg B-Comp/C/Folic 1 dose PEG/G-TUBE DAILY 10/17/24 [History] Sucralfate [Carafate] 1 gm PEG/G-TUBE QID 10/17/24 [History] oxyCODONE HCL [oxyCODONE HCL (IR)] 5 mg PEG/G-TUBE Q6H PRN 10/17/24 [History] Follow up Appointment(s)/Referral(s): Mariusz Ponce DO [STAFF PHYSICIAN] - 2 Weeks Activity/Diet/Wound Care/Special Instructions: Resume regular diet Resume home medications Apply wound VAC 125 mmHg to the lateral fifth toe amputation site If unable to apply wound VAC in a timely manner, daily dressing changes with Puracol Ag to open sites. Consult wound care at facility Nonweightbearing of the right foot at this time. Discharge Disposition: TRANSFER TO SNF/ECF
[2024-10-18 10:43] VITALS: TEMP 97.9
[2024-10-18 11:05] VITALS: PULSE 74; RESP 16
[2024-10-18 11:31] VITALS: BP 126/77
== END 2024-10-18 11:52 ==
LOC: OR 07:00
PROVIDERS: ATTEND Surgery
DX: I70.261 Atherosclerosis of native arteries of extremities with gangrene, right leg (principal); I10 Essential (primary) hypertension; G40.909 Epilepsy, unspecified, not intractable, without status epilepticus; Z86.73 Personal history of transient ischemic attack (TIA), and cerebral infarction without residual deficits; Z99.2 Dependence on renal dialysis; Z87.891 Personal history of nicotine dependence; Z79.82 Long term (current) use of aspirin; Z79.02 Long term (current) use of antithrombotics/antiplatelets; Z79.899 Other long term (current) drug therapy
CPT/HCPCS: 11042; 64450; J1100; J0690; J2405; J3010; J2795; J2704; J2371

== ENCOUNTER 2024-11-23 10:11 | Day surgery (SDC) | payer MEDICARE ==
[~2024-11-23 10:11] MED LIST changes: -LACTATED RINGERS 1,000 ML IV SCH; -MIDAZOLAM 2 MG/2 ML VIAL IV PRN
[2024-11-23] MEDS: IV FLUID CONTINUATION 1,000 ML IV ONE (10:52)
[2024-11-23] MEDS: ONDANSETRON 4 MG/2 ML VIAL IVP ONE (11:02)
[2024-11-23] MEDS: LACTATED RINGERS 1,000 ML IV SCH (11:03)
[2024-11-23] MEDS ORDERED: MIDAZOLAM 2 MG/2 ML VIAL ONE (11:05)
[2024-11-23] MEDS ORDERED: LIDOCAINE 1% INJ 10MG/ML (20 ML MDV) ONE (11:05)
[2024-11-23] MEDS ORDERED: fentaNYL (PF) 50 MCG/ML 2 ML AMP ONE (11:05)
[2024-11-23] MEDS ORDERED: PHENYLEPHRINE-0.9% NACL SYG 1,000 MCG/10 ML SYRINGE ONE (11:05)
[2024-11-23] MEDS ORDERED: PROPOFOL 10 MG/ML 20 ML VIAL IV ONE (11:05)
[2024-11-23 11:59] VITALS: TEMP 98.4
--- NOTE | 2024-11-23 11:59 | P.OP ---
Date of Procedure: 11/23/24 Preoperative Diagnosis: Chronic right fifth toe amputation wound Right heel wound Postoperative Diagnosis: Same Procedure(s) Performed: Excisional debridement of the right fifth toe amputation wound bed and heel wound Skin substitute placement at the fifth toe amputation wound bed with PuraPly SX measuring 7.5 x 1.5 cm Anesthesia: [facility] [place] Surgeon: Mariusz Ponce Estimated Blood Loss (ml): 5 Pathology: none sent Condition: stable Disposition: PACU Indications for Procedure: 69-year-old gentleman with history of gangrene of the fifth toe on the right secondary to ischemia status post amputation with chronic wound that developed at the amputation site as well as at the heel presents to the OR for excisional debridement and skin substitute placement. He did previously have a wound VAC at the wound bed with significant improvement noted. Operative Findings: 7.5 x 1.5 cm wound at the fifth toe amputation site with good granulation tissue and no purulence. 1 cm x 1 cm wound with approximately 0.5 cm of depth at the heel on the right with fibrinous tissue noted throughout and good granulation tissue Description of Procedure: After written and informed consent was obtained with the patient all risk, benefits and complications were described the patient was brought to the operative suite and laid in the supine position. The area of the right foot was prepped and draped in usual sterile fashion after appropriate anesthetic was performed per the anesthesiologist. A timeout was performed normal fashion. Utilizing a curette and scalpel sharp excisional debridement was then performed at the lateral amputation site of the fifth toe down to bleeding subcutaneous tissue. There was some residual tendinous tissue noted but no bone exposed. Once good bleeding tissue was encountered the area was cleansed and a PuraPly SX skin substitute was then cut and placed into the wound bed. This was then bolstered with Adaptic, Steri-Strips, 4 x 4 and Kerlix. Attention was then placed to the lateral heel wound and sharp debridement with a curette was performed down to subcutaneous tissue and no bone exposed. The area was dressed with 4 x 4 and Kerlix dressing. Patient tolerated procedure well and was sent to PACU for recovery. He will maintain the dressing for 1 week and is not to be changed under the Adaptic during that time.
[2024-11-23 12:18] VITALS: RESP 16
[2024-11-23 12:58] VITALS: BP 128/75; PULSE 65
== END 2024-11-23 13:30 | disposition home or self-care (01) ==
LOC: OR 10:11
PROVIDERS: ATTEND Surgery
DX: S91.104A Unspecified open wound of right lesser toe(s) without damage to nail, initial encounter (principal); I48.91 Unspecified atrial fibrillation; I63.9 Cerebral infarction, unspecified; N17.9 Acute kidney failure, unspecified; I10 Essential (primary) hypertension; G40.89 Other seizures; Z79.02 Long term (current) use of antithrombotics/antiplatelets; Z79.82 Long term (current) use of aspirin; Z79.899 Other long term (current) drug therapy; X58.XXXA Exposure to other specified factors, initial encounter
CPT/HCPCS: 28825; 15275; 15004; J0690; J2405